=== PATIENT | female | born 1935 | race Caucasian/White ===

== ENCOUNTER 2020-04-04 09:43 | Outpatient (CLI) | payer MEDICARE, SELFPAY ==
--- NOTE | ~2020-04-04 | MM_ITS ---
EXAMINATION: MM screening maynor BI w eduard HISTORY: Screening mammogram TECHNIQUE: Craniocaudal and mediolateral oblique 3-D tomosynthesis images were obtained and synthetic 2-D images were generated. CAD analysis was submitted and interpreted. COMPARISON: Comparison to multiple prior studies sequentially, with oldest reviewed study dated 02/19. BREAST PARENCHYMAL COMPOSITION: There are scattered areas of fibroglandular density. FINDINGS: There is no evidence of suspicious mass, calcification, or architectural distortion to sugg est malignancy in either breast. There has been no suspicious interval change. IMPRESSION: 1. No mammographic evidence of malignancy. 2. Recommend routine screening mammography in one year. BI-RADS Category 1: Negative Reviewed, dictated and finalized at location A.
== END 2020-04-04 09:44 | disposition home or self-care (01) ==
LOC: ANHIMG 09:46
PROVIDERS: PCP Family Medicine; Visit Provider Family Medicine
DX: Z12.31 Encounter for screening mammogram for malignant neoplasm of breast (principal)
CPT/HCPCS: 77063; 77067

== ENCOUNTER → 2021-02-16 01:27 | Outpatient (CLI) | payer MEDICARE, SELFPAY ==
[2021-02-16 19:12] LABS: SARS-CoV-2 RNA PCR Negative
== END ==
PROVIDERS: PCP Family Medicine; Visit Provider Internal Medicine Cardiovascular Disease
DX: Z01.812 Encounter for preprocedural laboratory examination (principal); Z20.822 Contact with and (suspected) exposure to COVID-19
CPT/HCPCS: C9803; U0003; U0005

== ENCOUNTER 2021-02-20 03:15 | Day surgery (SDC) | payer MEDICARE, SELFPAY ==
[2021-02-19 10:26] VITALS: BMI 23.9
[2021-02-20] VITALS (12 sets, daily range): BP systolic 89–134; BP diastolic 54–82; PULSE 64–79; RESP 8–23; TEMP 36.5–37.1; O2SAT 98–100; BMI 24.2
--- NOTE | 2021-02-20 13:00 | ECG_ITS ---
Measurements Intervals [place] Rate: 75 P: [place]: 0 QRS: -15 QRSD: 86 T: 29 QT: 392 QTc: 439 Interpretive Statements ATRIAL FIBRILLATION ABNORMAL ECG Electronically Signed On 02-20-2021 13:40:24 CDT by Michael Pham D.O.
--- NOTE | 2021-02-20 13:48 | ECG_ITS ---
Measurements Intervals [place] Rate: 69 P: 93 IA: 259 QRS: -16 QRSD: 94 T: 43 QT: 418 QTc: 450 Interpretive Statements SINUS RHYTHM WITH FIRST DEGREE AV BLOCK ATRIAL AND VENTRICULAR PREMATURE COMPLEXES BASELINE ARTIFACT- I, II, III, AVR, AVL, AVF ABNORMAL ECG Electronically Signed On 02-20-2021 15:32:25 CDT by Michael Pham D.O.
[2021-02-20 13:51] LABS: Anion Gap 5 mmol/L (8-16); Blood Urea Nitrogen 20 mg/dL (7-17); Calcium 9.2 mg/dL (8.4-10.2); Carbon Dioxide 28 mmol/L (22-30); Chloride 104 mmol/L (98-107); Estimated CRCL calculation 25 ml/min; Estimated Glomerular Filt Rate 43; Glucose 98 mg/dL (65-105); Magnesium 1.6 mg/dL (1.6-2.3); Potassium 4.4 mmol/L (3.4-5.0); Sodium 137 mmol/L (137-145)
[2021-02-20] MEDS: MAGNESIUM SULF 2 GM/WATER 50ML 2 GM/50 ML BAG IVPB (14:28)
--- NOTE | 2021-02-20 15:03 | WPDHPUPDATE1 ---
History and Physical Update Update Date/Time: 02/20/21 15:03 History and Physical has been reviewed, including an updated exam of the patient. There are NO changes in the patient's condition. Risks, benefits, and alternatives have been discussed and questions answered. Patient confirms that she has not missed any Eliquis doses. Patient agrees to proceed with procedure.
--- NOTE | 2021-02-20 15:04 | WPDMODSED ---
Moderate Sedation Note-Pt Data Patient Data Diagnosis: Symptomatic atrial fibrillation Present Complaint: Symptomatic atrial fibrillation Procedure to be performed/Plan: Conscious sedation elective electrical cardioversion Allergies Allergy/AdvReac Type Severity Reaction Status Date / Time No Known Allergies Allergy Verified 02/20/21 13:40 Home Medications Medication Instructions Recorded Confirmed Type irbesartan 300 mg tablet 300 mg PO DAILY #90 tablet 04/05/20 02/19/21 Rx propranolol 80 mg tablet 80 mg PO Q12H #180 tablet 05/07/20 02/19/21 Rx diltiazem HCl 120 mg capsule,24 120 mg PO DAILY #90 cap 07/02/20 02/19/21 Rx hr,extended release omeprazole 40 mg capsule,delayed 40 mg PO DAILY #90 cap 09/26/20 02/19/21 Rx release pravastatin 20 mg tablet 20 mg PO DAILY #90 tablet 12/24/20 02/19/21 Rx apixaban 5 mg tablet 5 mg PO BID #60 tablet 01/29/21 02/19/21 Rx furosemide 20 mg PO DAILY 02/19/21 02/19/21 History Current Medications: Active Medications Sodium Chloride (Normal Saline Iv) 1,000 mls @ 30 mls/hr IV CONT .Q24H DIANE Magnesium Sulfate (Magnesium Sulf 2 Gm/Water 50ml) 2 gm in 50 mls @ 50 mls/hr IVPB ONCE ONE Stop: 02/20/21 15:16 Last Admin: 02/20/21 14:28 Dose: 50 mls/hr Documented by: Sedation/Anesthesia: No previous sedation/anesthesia problems (including family history). [facility] Past Medical History Medical History (Updated 02/20/21 @ 15:05 by Alison Woo MD) CKD (chronic kidney disease), stage III Hyperlipidemia Hypertensive CKD (chronic kidney disease) OAB (overactive bladder) Raynauds disease Family History Family History Mother Family history of coronary artery disease Social History Social History (Updated 02/20/21 @ 15:06 by Alison Woo MD) Social History: , lives alone in [place], 2 sons and 1 daughter. Smoking status: Never smoker Second hand tobacco smoke exposure: No Alcohol intake: never Substance use: never Substance use type: does not use Living arrangements: alone Gender identity (if verbalized by the patient): Female Spiritual care concerns: No Mod Sed Physical Exam Physical Exam Pre Procedural Exam: Normal: Appearance, Eyes, Ears, Nose, Neck, Throat, Airway, Lungs, Heart Size, Heart Rate, Neuro Exam, Abdomen, Extremities and Skin and Variation: Heart Rhythm (Irregular) Hours since solid foods: 12 Hours since liquid intake: 12 Internal Medicine - PN: Obj Da Vital Signs Vital Signs: Vital Signs - 24 hr 02/20/21 13:30 Temperature 98.5 F Pulse Rate 79 Respiratory Rate 23 H Blood Pressure 121/78 Pulse Oximetry 100 Meds/Results Medications: Active Medications Generic Name Dose Route Start Last Admin Trade Name Freq PRN Reason Stop Dose Admin Sodium Chloride 1,000 mls @ 30 mls/hr 02/20/21 13:00 Normal Saline Iv IV CONT .Q24H DIANE Magnesium Sulfate 2 gm in 50 mls @ 50 mls/hr 02/20/21 14:17 02/20/21 14:28 Magnesium Sulf 2 Gm/Water 50ml IVPB 02/20/21 15:16 50 mls/hr ONCE ONE Administration Labs CBC & Chem 7: 02/20/21 13:30 Labs: Laboratory Results - last 24 hr 02/20/21 13:30 Sodium 137 Potassium 4.4 Chloride 104 Carbon Dioxide 28 Anion Gap 5 L BUN 20 H Creatinine 1.20 H Estim Creat Clear Calc 25 Estimated GFR 43 L Glucose 98 Calcium 9.2 Magnesium 1.6 ASA Classification/Sedation ASA Classification/Sedation ASA Class: III Risks: Risks, benefits and alternatives explained and patient/family accepted plan for sedation. Patient re-evaluated immediately prior to sedation.
--- NOTE | 2021-02-20 15:28 | PM.OP ---
Procedure Note - Brief Procedure Note - Brief Date of procedure: 02/20/21 Pre-op diagnosis: Afib Post-op diagnosis: same Procedure performed: Conscious sedation and elective electrical cardioversion Description of procedure: Successful cardioversion to normal sinus rhythm Anesthesia: other (Conscious sedation) Surgeon: Alison Woo MD Condition: stable Disposition: observation Findings: Uneventful cardioversion
--- NOTE | 2021-02-20 15:38 | WPDCARDVER ---
Cardioversion Cardioversion Date of procedure: 02/20/21 Description of procedure: History: Symptomatic atrial fibrillation Procedure: Conscious sedation and elective electrical cardioversion. Conscious sedation: Assessment: The patient has no history of anesthesia problems. The patient's oropharynx is clear. The patient was deemed to be a good candidate for conscious sedation. The patient had continuous hemodynamic monitoring during the procedure. Start time: 16 Completion time: 1533 Total conscious sedation time: 17 minutes Medications: Versed 2 mg, fentanyl 50 mcg IV push Trained observer: Sherly Ernandez RN Outcome: The patient tolerated the procedure well with no complications. Cardioversion: After informed consent and the above conscious sedation, the patient underwent elective electrical synchronized cardioversion with 150 joules of biphasic energy and converted to normal sinus rhythm. There were no complications. Followup: The patient will follow up in my office in 1 week for an EKG and is scheduled to see me in the office in February. No medication changes made.
--- NOTE | 2021-02-20 17:00 | SUR.PHASEII ---
REVIEWED DISCHARGE INSTRUCTIONS AND FOLLOW UP CARE W/ PT AND DAUGHTER IN LAW. QUESTIONS ANSWERED. BOTH VOICED UNDERSTANDING. MONITOR SR. DISCHARGED HOME, OUT VIA WC TO FAMILY WAITING CAR WITH ALL PERSONAL BELONGINGS AND DISCHARGE PACKET. NO DISTRESS NOTED. VOICES NO C/O.
== END 2021-02-20 17:00 | disposition home or self-care (01) ==
PROVIDERS: PCP Family Medicine; Visit Provider Internal Medicine Cardiovascular Disease
PROC: 5A2204Z Restoration of Cardiac Rhythm, Single (ICD-10-PCS; principal; 2021-02-20 14:30)
DX: I48.91 Unspecified atrial fibrillation (principal); I12.9 Hypertensive chronic kidney disease with stage 1 through stage 4 chronic kidney disease, or unspecified chronic kidney disease; N18.30 Chronic kidney disease, stage 3 unspecified; E78.2 Mixed hyperlipidemia; I73.00 Raynaud's syndrome without gangrene; N32.81 Overactive bladder; Z79.01 Long term (current) use of anticoagulants
CPT/HCPCS: 36415; 80048; 83735; 92960; 93005; J2250; J3010; J3475; J7040

== ENCOUNTER 2021-04-10 12:47 | Outpatient (CLI) | payer MEDICARE, SELFPAY ==
--- NOTE | ~2021-04-10 | MM_ITS ---
EXAMINATION: MM screening maynor BI w eduard HISTORY: Screening mammogram TECHNIQUE: Craniocaudal and mediolateral oblique 3-D tomosynthesis images were obtained and synthetic 2-D images were generated. CAD analysis was submitted and interpreted. COMPARISON: 04/04/2020, 03/17/2019, 03/15/2018, 03/10/2017 BREAST PARENCHYMAL COMPOSITION: There are scattered areas of fibroglandular density. FINDINGS: Scattered benign-appearing calcifications are present. There is no evidence of suspicious m ass, calcification, or architectural distortion to suggest malignancy in either breast. There has bee n no suspicious interval change. IMPRESSION: 1. No mammographic evidence of malignancy. 2. Recommend routine screening mammography in one year. BI-RADS Category 2: Benign finding(s). Reviewed, dictated and finalized at location A.
== END 2021-04-10 12:48 | disposition home or self-care (01) ==
LOC: ANHIMG 12:49
PROVIDERS: PCP Family Medicine; Visit Provider Family Medicine
DX: Z12.31 Encounter for screening mammogram for malignant neoplasm of breast (principal)
CPT/HCPCS: 77063; 77067

== ENCOUNTER 2021-05-21 15:12 | Outpatient (CLI) | payer MEDICARE, SELFPAY ==
--- NOTE | ~2021-05-21 | CT_ITS ---
EXAMINATION: CTA brain carotid DATE: 05/21/2021 16:01 INDICATION: Paroxysmal atrial fibrillation. TECHNIQUE: Computed tomographic angiography (CTA) of the head was performed without and with 100 mL O mnipaque-350 intravenous contrast. CTA of the neck was performed with intravenous contrast. Automated exposure control and iterative reconstruction technique were employed. The dose-length product was 1 494.68 mGy-cm. Maximum intensity projection and volume rendered 3D-reconstructions were created by irlanda otoole technologist on a separate workstation. COMPARISON: Head CT 03/31/2015 FINDINGS: HEAD CTA: There are scattered areas of low attenuation in the cerebral white matter, which is within normal limits for the patient's age. There is no intracranial hemorrhage, acute infarction, or abnorm al intracranial mass lesion. The ventricles are normal in size. There are likely changes of ocular le ns replacement surgeries. There is mild mucosal thickening in the ethmoid sinuses. There is a trace r ight mastoid effusion. The vertebral arteries are codominant. There is no significant stenosis of bas ilar artery or the posterior cerebral arteries. The posterior communicating arteries are normal. Ther e is no significant stenosis of the intracranial internal carotid arteries or anterior or middle cere bral arteries. Anterior communicating artery is normal. There is no aneurysm. NECK CTA: There is mild scarring at the lung apices. There are no pathologically enlarged lymph nodes . There is no significant stenosis of the vertebral arteries. There is plaque in the proximal interna l carotid arteries. There is motion artifact at the level of the proximal internal carotid regions wh ich decreases specificity. There is 0% stenosis of the proximal right internal carotid artery relativ e to normal distal artery lumen diameter (NASCET criteria). There is 30% stenosis of the proximal lef t internal carotid artery relative to normal distal artery lumen diameter. There is severe cervical s pondylosis. IMPRESSION: 1. Normal aging brain. 2. No aneurysm or significant intracranial arterial stenosis. 3. 0% stenosis of the proximal right internal carotid artery relative to normal distal artery lumen d iameter (NASCET criteria). 4. 30% stenosis of the proximal left internal carotid artery relative to normal distal artery lumen d iameter. Reviewed, dictated and finalized at location A. IMPRESSION: 1. Normal aging brain. 2. No aneurysm or significant intracranial arterial stenosis. 3. 0% stenosis of the proximal right internal carotid artery relative to normal distal artery lumen diameter (NASCET criteria). 4. 30% stenosis of the proximal left internal carotid artery relative to normal distal artery lumen diameter.
[2021-05-21 15:39] LABS: Estimated Glomerular Filt Rate 39
== END 2021-05-21 15:13 | disposition home or self-care (01) ==
PROVIDERS: PCP Family Medicine; Visit Provider Internal Medicine Cardiovascular Disease
DX: I48.0 Paroxysmal atrial fibrillation (principal); H53.9 Unspecified visual disturbance; R51.9 Headache, unspecified; I65.22 Occlusion and stenosis of left carotid artery
CPT/HCPCS: 70496; 70498; Q9967

== ENCOUNTER 2021-06-06 15:48 | Outpatient (CLI) | payer MEDICARE, SELFPAY ==
--- NOTE | ~2021-06-06 | MR_ITS ---
EXAMINATION: MR brain/brain stem wo con DATE: 06/06/2021 16:35 INDICATION: Transient ischemic attack. TECHNIQUE: Magnetic resonance imaging (MRI) of the brain and brainstem was performed without intraven ous contrast. Sequences included sagittal and axial T1-weighted FSE, axial diffusion-weighted FS EPI, axial T2*-weighted GRE, axial T2-weighted FLAIR Propeller, and axial T2-weighted Propeller. Apparent diffusion coefficient (ADC) maps were created. COMPARISON: Head CT 05/21/2021 FINDINGS: There are scattered areas of nonspecific increased T2-weighted signal intensity in the cere bral white matter, which is within normal limits for the patient's age. There is no intracranial hemo rrhage, acute infarction, or abnormal intracranial mass lesion. The ventricles are normal in size. Th e paranasal sinuses are clear. There are likely changes of ocular lens replacement surgeries. The mas toid air cells are normal. IMPRESSION: 1. Normal aging brain. Reviewed, dictated and finalized at location A. IMPRESSION: 1. Normal aging brain.
== END 2021-06-06 15:49 | disposition home or self-care (01) ==
PROVIDERS: PCP Family Medicine; Visit Provider Internal Medicine Cardiovascular Disease
DX: I48.0 Paroxysmal atrial fibrillation (principal); G45.9 Transient cerebral ischemic attack, unspecified
CPT/HCPCS: 70551

== ENCOUNTER → 2023-06-11 15:10 | Outpatient (CLI) | payer MEDICARE, SELFPAY ==
--- NOTE | ~2023-06-11 | XR_ITS ---
EXAMINATION: XR lumbar spine 2-3V DATE: 06/11/2023 15:23 INDICATION: Low back pain. Low back injury. TECHNIQUE: 3 views of lumbar spine were obtained. COMPARISON: Lumbar spine radiographs 10/11/2013 FINDINGS: There is 27 degrees dextroscoliosis of lumbar spine. Vertebral body heights are normal. The re is mildly decreased disc height at T12-L1 and L1-L2, severely decreased disc height at L2-L3 and L 3-L4, and mildly decreased disc height at L4-L5. There is multilevel facet joint osteoarthritis, santiago re at multiple levels. IMPRESSION: 1. Severe lumbar spondylosis, worsened from 10/11/2013. 2. Lumbar dextroscoliosis. Reviewed, dictated and finalized at location E.
== END ==
PROVIDERS: PCP Family Medicine; Visit Provider Family Medicine
DX: M47.896 Other spondylosis, lumbar region (principal)
CPT/HCPCS: 72100

== ENCOUNTER 2023-09-24 03:10 | Day surgery (SDC) | payer MEDICARE, SELFPAY ==
--- NOTE | 2023-09-24 08:30 | ECG_ITS ---
Measurements Intervals [place] Rate: 72 P: [place]: 0 QRS: -22 QRSD: 85 T: 28 QT: 390 QTc: 429 Interpretive Statements ATRIAL FIBRILLATION BORDERLINE LEFT AXIS DEVIATION [QRS AXIS < -20] ABNORMAL RHYTHM ECG COMPARED TO ECG 02/20/2021 15:30:29 ATRIAL FIBRILLATION NOW PRESENT Electronically Signed On 09-24-2023 12:58:12 CDT by Alison Woo M.D.
[2023-09-24 08:52] VITALS: BP 170/98; PULSE 80; RESP 17; TEMP 36.6; O2SAT 96; BMI 24.2
[2023-09-24 09:05] LABS: Basophils Percent Auto 0.7 % (0.2-1.2); Eosinophils Absolute Auto 0.1 K/mm3 (0-0.3); Eosinophils Percent Auto 1.5 % (0-4.4); Hematocrit 37.8 % (37.0-47.0); Hemoglobin 12.3 g/dL (12.0-15.0); Immature Granulocyte Absolute 0.01 K/mm3 (0.00-0.031); Immature Granulocyte Percent A 0.2 % (0-0.5); Lymphocytes Absolute Auto 2.36 K/mm3 (0.9-3.2); Lymphocytes Percent Auto 43.6 % (18.3-44.2); Mean Corpuscular HGB Conc 32.5 g/dl (32-36); Mean Corpuscular Hemoglobin 34.1 pg (26-34); Mean Corpuscular Volume 104.7 fl (80-100); Monocytes Absolute Auto 0.8 K/mm3 (0.1-0.6); Monocytes Percent Auto 14.4 % (2.6-8.5); Neutrophils Absolute Auto 2.1 K/mm3 (1.3-6.7); Neutrophils Percent Auto 39.6 % (45.5-73.1); Platelet Count Result 180 k/mm3 (150-375); Red Blood Count 3.61 M/mm3 (4.2-5.4); Red Cell Distribution Width 13.7 % (11.5-14.5); White Blood Count 5.4 K/mm3 (4.5-10.0)
[2023-09-24 09:17] LABS: Anion Gap 4 mmol/L (8-16); Blood Urea Nitrogen 19 mg/dL (7-17); Calcium 9.3 mg/dL (8.4-10.2); Carbon Dioxide 31 mmol/L (22-30); Chloride 102 mmol/L (98-107); Estimated CRCL calculation 24 ml/min; Estimated Glomerular Filt Rate 43; Glucose 99 mg/dL (65-110); Potassium 4.3 mmol/L (3.4-5.0); Sodium 137 mmol/L (137-145)
[2023-09-24 09:17] LABS: Magnesium 1.5 mg/dL (1.6-2.3)
[2023-09-24 09:28] LABS: NT Pro B Type Natriuretic Pept 2950 pg/mL (19.9-100)
--- NOTE | 2023-09-24 09:42 | WPDHPUPDATE1 ---
History and Physical Update Update Date/Time: 09/24/23 09:42 Patient with history of AFib ablation in April [address] Velazquez at [facility]. She has had progressive JOHNSON over the past few months and was found to be in atrial fibrillation again the time of the recent office visit September 15, 2023. She is here for cardioversion. History and Physical has been reviewed, including an updated exam of the patient. There are NO changes in the patient's condition. Risks, benefits, and alternatives have been discussed and questions answered. Patient agrees to proceed with procedure.
--- NOTE | 2023-09-24 09:43 | WPDMODSED ---
Moderate Sedation Note-Pt Data Patient Data Diagnosis: Recurrent atrial fibrillation Mild congestive heart failure Present Complaint: history of AFib ablation in April [address] Velazquez at [facility]. She has had progressive JOHNSON over the past few months and was found to be in atrial fibrillation again the time of the recent office visit September 15, 2023. Her rate is controlled. She had a cardioversion in 2020 and felt significantly better. I suspected she may mild CHF her proBNP was 2000. She has not missed any doses of Eliquis. She is here for cardioversion. Procedure to be performed/Plan: Conscious sedation Elective electrical cardioversion Allergies Allergy/AdvReac Type Severity Reaction Status Date / Time No Known Allergies Allergy Verified 09/24/23 08:36 Home Medications Medication Instructions Recorded Confirmed Type triamcinolone acetonide 0.5 % 1 applic topical BID #15 grams 06/06/22 09/24/23 Rx topical ointment pravastatin 20 mg tablet 20 mg PO DAILY #90 tabs 05/12/23 09/23/23 Rx diltiazem HCl 120 mg capsule,24 120 mg PO DAILY #90 caps 06/12/23 09/23/23 Rx hr,extended release tramadol 50 mg tablet 50 mg PO Q8H PRN pain #30 tabs 06/22/23 09/24/23 Rx apixaban 5 mg tablet 5 mg PO BID #60 tabs 07/21/23 09/23/23 Rx omeprazole 40 mg capsule,delayed 40 mg PO DAILY #90 caps 08/28/23 09/23/23 Rx release calcium carbonate 600 mg calcium 600 mg PO BID 09/23/23 09/23/23 History (1,500 mg) tablet irbesartan 150 mg tablet 300 mg PO DAILY 09/23/23 09/23/23 History propranolol 80 mg tablet 80 mg PO BID 09/24/23 09/24/23 History Current Medications: Active Medications Sodium Chloride (Normal Saline Iv) 1,000 mls @ 30 mls/hr IV CONT .Q24H DIANE Sedation/Anesthesia: No previous sedation/anesthesia problems (including family history). [facility] Past Medical History Medical History (Updated 09/24/23 @ 09:46 by Alison Woo MD) CKD (chronic kidney disease), stage III Diastolic CHF Hyperlipidemia Hypertensive CKD (chronic kidney disease) OAB (overactive bladder) Paroxysmal A-fib Status post AFib ablation by Dr. Velazquez at [place] in February 2022. Raynauds disease Family History Family History Mother Family history of coronary artery disease Social History Social History Social History: , lives alone in [place], 2 sons and 1 daughter. Smoking status: Never smoker Second hand tobacco smoke exposure: No Alcohol intake: never Substance use: never Substance use type: does not use Lack of Transportation: No Lack of Food: Never True Current Housing: I Have Housing Concerned About Future Housing: No Difficulty Paying Gas/Electric Bills: No Difficulty Paying for Meds: No Currently Unemployed: YES Education: Decline to Answer Difficulty w/ Childcare or Family Care: No Living arrangements: alone Occupation/Education: retired Gender identity (if verbalized by the patient): Female Sexual Orientation (if Verbalized by the Patient): Straight or Heterosexual Spiritual care concerns: No Mod Sed Physical Exam Physical Exam Pre Procedural Exam: Normal: Appearance (Very pleasant well-groomed 80 Compazine by daughter and son), Eyes, Ears, Nose, Neck, Throat, Airway (Dentures), Lungs, Heart Size, Heart Rate, Neuro Exam, Abdomen, Extremities and Skin and Variation: Heart Rhythm (Irregular) Hours since solid foods: 12 Hours since liquid intake: 12 Mallampati Classification: class II Internal Medicine - PN: Obj Da Vital Signs Vital Signs: Vital Signs - 24 hr 09/24/23 08:52 Temperature 97.9 F Pulse Rate 80 Respiratory Rate 17 Blood Pressure 170/98 H Pulse Oximetry 96 Oxygen Delivery Room Air Meds/Results Medications: Active Medications Generic Name Dose Route Start Last Admin Trade Name Freq PRN Reason Stop Dose Admin Sod[place]
[2023-09-24 09:55] VITALS: BP 143/80; PULSE 85; RESP 14; O2SAT 100
[2023-09-24 10:00] VITALS: BP 135/68; PULSE 59; RESP 12; O2SAT 98
--- NOTE | 2023-09-24 10:05 | P.OP_ITS ---
Procedure Note - Detailed Date of Procedure 09/24/23 Pre-op Diagnosis A-fib Post-op Diagnosis Other (Successful cardioversion) Procedure Performed Conscious sedation: Assessment: The patient has no history of anesthesia problems. The patient's oropharynx is clear. The patient was deemed to be a good candidate for conscious sedation. The patient had continuous hemodynamic monitoring during the procedure. Start time: 9:52 a.m. Completion time: 10:01 a.m. Total conscious sedation time: 9 minutes Medications: Versed 2 mg, fentanyl 75 mcg push Trained observer: Kristi Mohamud R.N. Outcome: The patient tolerated the procedure well with no complications. Surgeon Alison Woo MD Anesthesia Other (Conscious sedation) Indications 88-year-old female with a history of paroxysmal atrial fibrillation who underwent cardioversion 2020, and felt much better. She underwent AFib ablation by Dr. Velazquez at [facility] in 2021. She has had significant JOHNSON over the last couple of months and was found be back in AFib with a controlled heart rate. She appeared to have some diastolic heart failure, though not particularly volume overload, and her proBNP today was 3000. She has not missed any doses of Eliquis and is here for elective electrical cardioversion. Findings Successful cardioversion Description of Procedure Cardioversion: After informed consent and the above conscious sedation, the patient underwent elective electrical synchronized cardioversion with 150 joules of biphasic energy and converted to normal sinus rhythm. There were no complications. Follow-up: The patient has an appointment to see Dr. Velazquez in September for further discussion of AFib treatment. Also has an appointment to follow-up with Dr. Woo in the next couple of months. Will give 5 days of furosemide 20 mg qd to assist in relief of JOHNSON. Complications No immediate complications Condition Stable Disposition Observation
--- NOTE | 2023-09-24 10:05 | PM.OP ---
Procedure Note - Brief Procedure Note - Brief Date of procedure: 09/24/23 A-fib Procedure performed: Conscious sedation Elective electrical cardioversion Surgeon: Alison Woo MD Description of procedure: Patient cardioverted to sinus rhythm after 150 joules of biphasic energy Complications: No immediate complications Condition: Stable Disposition: Observation
[2023-09-24 10:15] VITALS: BP 109/64; PULSE 57; RESP 11; O2SAT 97
--- NOTE | 2023-09-24 10:15 | ECG_ITS ---
Measurements Intervals [place] Rate: 71 P: 64 CT: 261 QRS: -20 QRSD: 90 T: 16 QT: 408 QTc: 445 Interpretive Statements SINUS RHYTHM/ARRHYTHMIA WITH FIRST DEGREE AV BLOCK WITH OCCASIONAL SUPRAVENTRICULAR PREMATURE COMPLEXES COMPARED TO ECG 09/24/2023 08:50:51 SINUS RHYTHM NOW PRESENT FIRST DEGREE AV BLOCK NOW PRESENT Electronically Signed On 09-24-2023 12:59:02 CDT by Alison Woo M.D.
[2023-09-24 10:30] VITALS: BP 127/64; PULSE 61; RESP 15; O2SAT 98
[2023-09-24 10:45] VITALS: BP 119/60; PULSE 58; RESP 18; O2SAT 95
== END 2023-09-24 11:05 | disposition home or self-care (01) ==
PROVIDERS: PCP Family Medicine; Visit Provider Internal Medicine Cardiovascular Disease
PROC: 5A2204Z Restoration of Cardiac Rhythm, Single (ICD-10-PCS; principal; 2023-09-24 10:00)
DX: I48.0 Paroxysmal atrial fibrillation (principal); R06.09 Other forms of dyspnea; I13.0 Hypertensive heart and chronic kidney disease with heart failure and stage 1 through stage 4 chronic kidney disease, or unspecified chronic kidney disease; I50.30 Unspecified diastolic (congestive) heart failure; N18.30 Chronic kidney disease, stage 3 unspecified; E78.5 Hyperlipidemia, unspecified; I73.00 Raynaud's syndrome without gangrene; N32.81 Overactive bladder; Z79.01 Long term (current) use of anticoagulants
CPT/HCPCS: 36415; 80048; 83735; 83880; 85025; 92960; J2250; J3010; J7030

== ENCOUNTER 2025-06-07 20:40 | Emergency (ER) | payer OTHER, SELFPAY ==
--- NOTE | ~2025-06-07 | CT_ITS ---
Noncontrast CT scan of the lumbar spine CLINICAL HISTORY: Back pain radiating to right lower extremity TECHNIQUE: Axial noncontrast imaging of the lumbar spine was performed. Sagittal and coronal reformat camilo images were constructed. Dose reduction technique was used on this scan by utilizing automated ex posure control and iterative reconstruction technique. The dose-length product (DLP) was 440.06 mGy-c m. FINDINGS: There is dextroscoliosis, apex at L2-L3 disc level. Moderate L1 compression fracture probab ly present, probably chronic. No subluxation evident otherwise. At L1-L2, there is severe degenerative disc narrowing. There is probable minimal disc bulge. There is minimal facet arthropathy. No central canal stenosis. There is severe right neural foraminal narrowi ng, and moderate left neural foraminal narrowing. At L2-L3, there is severe degeneration. There is minimal disc bulge with minimal facet arthropathy. N o central canal stenosis. There is severe left neural foraminal narrowing. Right neural foramen prese rved. At L3-L4, there is severe degenerative disc narrowing. There is minimal disc bulge with minimal facet arthropathy. There is minimal central canal stenosis. There is moderate bilateral neural foraminal n arrowing, left worse than right. At L4-L5, there is diffuse disc bulge with mild facet arthropathy. There is moderate to severe centra l canal stenosis/thecal sac compression. There is moderate to advanced bilateral neural foraminal raya rowing. At L5-S1, there is minimal disc bulge. No spinal canal stenosis or left neural foraminal narrowing. T here is mild right neural foraminal narrowing. Paravertebral soft tissues are unremarkable. Impression: Levoscoliosis with moderate to advanced degenerative spondylitic changes throughout the lumbar spine, as above. Moderate chronic L1 compression fracture. Reviewed, dictated and finalized at location M. Impression: Levoscoliosis with moderate to advanced degenerative spondylitic changes throug hout the lumbar spine, as above. Moderate chronic L1 compression fracture.
--- OUTSIDE RECORDS SUMMARY | 2025-06-07 20:44 | XMS_ITS | Clinical Summary ---
Author Organization [facility] [employer] Address [address] [place] [address] Care Team Providers Care Maker Up Folding Name Role Phone Alonzo Cornejo MD Primary Care Provider [phone] Source Comments [facility] [employer],non-owned Affiliates and Associated Physician Practices is amultiple site organization consisting of ambulatory clinics and hospital sitesin [place], [place], [place] and [place]. This disclosure is being madepursuant to the Care Everywhere program and may not contain all information available regarding this patient. Last updated 18.[facility] [employer] Social History Tobacco Use Types Packs/Day Years Used Date Smoking Tobacco: Never Assessed Comments Unknown Sex and Gender Information Value Date Recorded Sex Assigned at Not on file Legal Sex Female 12:30 PM CDT Gender Identity Not on file Sexual Orientation Not on file Plan of Treatment Health Maintenance Due Date Last Done Comments BONE DENSITY TESTING 1937 DTAP/TDAP/TD VACCINES (1 - Tdap) 1956 PNEUMOCOCCAL VACCINE 50+ (1 of 1 - PCV) 1987 ZOSTER VACCINE (1 of 2) 1987 Respiratory Syncytial Virus (RSV) Vaccine Pt: or over 60 yrs (1 - 1-dose 75+ series) 2012 COVID-19 VACCINE ( - 2023-2 5 season) 2024 DEPRESSION SCREENING 11/30/2024 INFLUENZA VACCINE (#1) 2025 HEPATITIS B VACCINE Aged Out No longe r eligible based on patient's age to complete this topic HIB VACCINE Aged Out No longer eligi ble based on patient's age to complete this topic HPV VACCINE Aged Out No longer eligi ble based on patient's age to complete this topic MENINGOCOCCAL (Group B) VACC INE SHARED DECISION-MAKING Aged Out No longer eligibl e based on patient's age to complete this topic MENINGOCOCCAL GROUPS A/C/Y/W VACCINE Aged Out No longer eligible b ased on patient's age to complete this topic Insurance MEDICARE MEDICARE MEDICARE Care Teams Maker Up Folding Relationship Specialty Start Date End Date Alonzo Cornejo MD [address] [place] [address] PCP - General 06/12/21
--- OUTSIDE RECORDS SUMMARY | 2025-06-07 20:44 | XMS_ITS | Encounter Summary ---
Author Organization [facility] Address [address] [place] [address] Phone Care Team Providers Care Toxicology Teacher Name Role Phone Alonzo Cornejo MD Primary Care Provider Encounter Details Date Type Department Care Team (Late st Contact Info) Description 05/18/2025 Results Follow-Up [facility] Cardiology [facility] Medical Office Building [address] [place] [address] Gilson Velazquez MD [facility] [address] [phone] ECG 12 lead Social History Tobacco Use Types Packs/Day Years Used Date Smoking Tobacco: Never Smokeless Tobacco: Never AUDIT-C Answer Date Recorded Q1: How often do you have a drink containing alcohol? Never 01/04/2024 Q2: How many drinks containi ng alcohol do you have on a typical day when you are drinking? Patient does not drink Q3: How often do you have si x or more drinks on one occasion? Never 01/04/2024 Personal Safety Answer Date Recorded Have you ever been in or are you currently in a harmful physical or emotional relationship or is someone making you feel afraid or unsafe? 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
--- OUTSIDE RECORDS SUMMARY | 2025-06-07 20:44 | XMS_ITS | Clinical Summary ---
Author Organization [facility] [address] Address [address] [place] [address] Care Team Providers Care Educational Psychology Teacher Name Role Phone Alonzo Cornejo MD Primary Care Provider Allergies No known active allergies Medications propranoloL (INDERAL) 80 mg tablet Take 1 tablet (80 mg total) by mouth every 12 (twelve) hours 1 Active omeprazole (PriLOSEC) 40 mg capsuleIndication s:Stress Ulcer Prophylaxis Take 1 capsule (40 mg total) by mouth fisheries enforcement officer before breakfast 1 Active Tiadylt ER 120 mg 24 hr capsule Take 1 capsule (120 mg total) by mouth fisheries enforcement officer before breakfast 1 Active acetaminophen (TYLENOL) 500 mg tablet Take 1 tablet (500 mg total) by mouth every 6 (six) hours as needed for pain Active irbesartan (AVAPRO) 150 mg tablet Take 1 tablet (150 mg total) by mouth daily 4 Active apixaban (ELIQUIS) 2.5 mg tabletIndications :atrial fibrillation Take 1 tablet (2.5 mg total) by mouth 2 (two) times a day 180 tablet 3 4 Active atorvastatin (LIPITOR) 20 mg tablet TAKE 1 TABLET BY MOUTH EVERY DAY 90 tablet 1 5 Active Active Problems Problem Noted Date Diagnosed Date Atypical atrial flutter 05/18/2025 senior living current use of anticoagulant therapy 0 05/18/2025 Chronic fatigue 12/29/2023 Reactive depression 12/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 Now s/p repeat ablation 01/04/24 -Discussed dose of eliquis with EP as pt reports taking 5 mg BID. Per EP fellow, resume home dose -Cont propranolol and diltiazem -Telemetry shows NSR -Home today. F/U with EP as arranged. Discussed post procedure instructions. Pt verbalized understanding. S/P radiofrequency ablation operation for arrhyt hmia 12/16/2022 Other thrombophilia 12/16/2022 Dyslipidemia 05/17/2022 Assessment & Plan (01/04/2024 2:57 PM BAIT DIGGER): Cont statin Assessment & Plan (05/17/2022 8:58 AM CDT): -continue statin GERD (gastroesophageal reflux disease) Assessment & Plan (05/17/2022 8:58 AM CDT): -cont PPI (HFpEF) heart failure with preserved ejection fr action 03/28/2021 Assessment & Plan (01/05/2024 2:27 PM BAIT DIGGER): TTE with EF 64% and grade 1 diastolic dysfunction. Appears euvolemic. Not in exacerbation -Not on diuretics at home -Strict I&Os, daily weights Loneliness 03/28/2021 Valvular heart disease 02/13/2021 Paroxysmal atrial fibrillation 01/29/2021 Chronic anticoagulation 01/29/2021 Essential hypertension 01/29/2021 Assessment & Plan (01/04/2024 2:55 PM BAIT DIGGER): Cont irbesartan and propranolol Localized swelling of both lower legs 01/29/2021 JOHNSON (dyspnea on exertion) 01/29/2021 Elevated LFTs 01/29/2021 Elevated TSH 01/29/2021 Anemia, unspecified 01/29/2021 Assessment & Plan (01/05/2024 2:27 PM BAIT DIGGER): Baseline Hgb 11s, likely AOCD; no signs of bleeding -Small drop in post procedure Hgb, exam reassuring. No hematoma Excessive daytime sleepiness 01/29/2021 CKD (chronic kidney disease) 01/29/2021 Assessment & Plan (01/05/2024 2:30 PM BAIT DIGGER): Cr baseline 1-1.1. Stable Resolved Problems Problem Noted Date Diagnosed Date Resolved Date Atrial fibrillation 05/16/2022 09/15/20 Persistent atrial fibrillation 04/08/2022 06/11/2022 Assessment & Plan (05/17/2022 8:58 AM CDT): -s/p afib ablation yesterday -patient currently in NSR / sinus arrhythmia -cont Eliquis, dilt, propranolol -f/u EP Encounters Date Type Department Care Team Description 05/22/2025 11:00 AM CDT Office Visit [facility] Cardiology [address] [facility] [address] [place] [address] Natanael Concepcion MD Paroxysmal atrial fibrillation (HCC) (Primary Dx); Valvular heart disease 05/18/2025 11:30 AM CDT Office Visit [facility] Cardiology [address] [facility] Advanced Medicine 8th [place] [address] [place] [address] Gilson Velazquez MD S/P radiofrequency ablation operation for arrhythmia (Primary Dx); Paroxysmal atrial fibrillation (HCC); Atypical atrial flutter (HCC); long term current use of anticoagulant therapy 05/18/2025 Results Follow-Up [facility] Cardiology [address] [facility] Medical Office Building [address] [place] [address] Gilson Velazquez MD ECG 12 lead from Last 3 Months Immunizations Immunization Administration Dates Next Due Moderna SARS-CoV-2 Monovalent Vaccination (12+ Y RS) 01/01/2021 Surgical History Surgery Date Site/Laterality Comments ABLATION 2021 atrial fibrillation CARDIOVERSION 2022 Medical History Medical History Date Comments Hypertension Heart valve disease Hyperlipidemia CKD (chronic kidney disease) stage 3, GFR 30-59 ml/min ([facility]) Eye problem Blood vessel bur st in [place] Family History Medical History Relation Name Comments Heart disease Mother Heart failure Mother Throat cancer Son Anesthesia problems Neg Hx Malig Hypertension Neg Hx Malig Hyperthermia Neg Hx Pseudochol deficiency Neg Hx Relation Name Status Comments Father Mother (Age 73) Son Social History Tobacco Use Types Packs/Day Years Used Date Smoking Tobacco: Never Smokeless Tobacco: Never Tobacco Cessation:Counseling Given: Not Answered AUDIT-C Answer Date Recorded Q1: How often [...] on file Legal Sex Female 2:54 AM BAIT DIGGER Gender Identity Not on file Sexual Orientation Not on file Obstetrics History Last Filed Vital Signs Vital Sign Reading Time Taken Comments Blood Pressure 140/74 05/22/2025 10:54 AM CDT Pulse 71 05/22/2025 10:54 AM CDT Temperature 36.7 C (98.1 F) 01/05/2024 8:53 AM BAIT DIGGER Respiratory Rate 16 01/05/2024 8:53 AM BAIT DIGGER Oxygen Saturation 98% 05/22/2025 10:54 AM CDT Inhaled Oxygen Concentration - - Weight 59 kg (130 lb) 05/22/2025 10:54 AM CDT Height 157.5 cm (5' 2) 05/22/2025 10:54 AM CDT Body Mass Index 23.78 05/22/2025 10:54 AM CDT Plan of Treatment Health Maintenance Due Date Last Done Comments Depression Screening 1935 Osteoporosis Screening-Bone Density Scan 1935 DTaP/Tdap/Td Vaccine (1 - Tdap) 1948 Hepatitis B Screening 1955 Pneumococcal vaccine 65+ (1 of 1 - PCV) 1987 Zoster Vaccine (1 of 2) 1987 Well Visit 65+ 2002 Covid-19 Vaccine (4 - 2023-2 5 season) 2024 10/03/2021, 02/01/2021, 01/01/2021 Fall Risk Assessment 01/05/2025 01/05/2024 Influenza Vaccine (Season Ended) 2025 08/21/2021, 07/29/2020, 07/25/2019, Additional history exists Medical Devices Implanted Type Area Automatic Steel Tie Adjuster Device Identifier Shelf Expiration Date Model / Serial / Lot Vascade Mvp 6-12fr Venous Closure [id number] - [id number] Implanted:Qty : 1 on 05/16/2022 by Gilson Velazquez MD at [facility] Collagen Left: Groin [employer] 11/29/2025 800-612C- 10U / / [id number] Vascade Mvp 6-12fr Venous Closure [id number] - [id number] Implanted:Qty : 1 on 05/16/2022 by Gilson Velazquez MD at [facility] Collagen Right: Groin [employer] 11/29/2025 800-612C- 10U / / [id number] Vascade Mvp 6-12fr Venous Closure [id number] - [id number] Implanted:Qty : 1 on 05/16/2022 by Gilson Velazquez MD at [facility] Collagen Right: Groin [employer] 11/29/2025 800-612C- 10U / / [id number] [employer] Vascade Mvp 6-12fr Venous Closure [id number] - [id number] Implanted:Qty : 1 on 01/04/2024 by Gilson Velazquez MD at [facility] Other - see comments [employer] 09/21/2025 800-612C- 10U / / [id number] 30C Description:Vascade closure device [employer] Vascade Mvp 6-12fr Venous Closure [id number] - [id number] Implanted:Qty : 1 on 01/04/2024 by Gilson Velazquez MD at [facility] Other - see comments [employer] 08/18/2025 800-612C- 10U / / [id number] 18C Description:Vascade closure device [employer] Vascade Mvp 6-12fr Venous Closure [id number] - [id number] Implanted:Qty : 1 on 01/04/2024 by Gilson Velazquez MD at [facility] Other - see comments [employer] 09/21/2025 800-612C- 10U / / [id number] 30C Description:Vascade closure device Procedures Procedure Name Priority Date/Time Associated Diagnosis Comments ECG 12-LEAD Routine 05/18/2025 11:39 AM CDT Paroxysmal atrial fibrillation (HCC) from Last 3 Months Results * ECG 12 lead (05/18/2025 11:39 AM CDT) us Gilson Velazquez MD ECG ORDERABLES Edited Result - Final from Last 3 Months Insurance [facility] [employer] ADVANTAGE CHOICE PPO Member Subscriber Plan / Payer (Ef fective 2023-Present) Name:Luly Luis Relation to Subscriber:Self Name:Luly Luis Payer ID:[id number] (NAIC) Type:MEDICARE RISK OTHER [facility] [address] [facility] [address] [employer] ADVANTAGE CHOICE PPO Advance Directives For more information, please contact: [phone] * Full Code (Latest Code Status on File) Date Activated Date Inactivated Comments 01/04/2024 2:52 PM 01/05/2024 3:30 PM Care Teams Educational Psychology Teacher Relationship Specialty Start Date End Date Alonzo Cornejo MD [address] [facility] [address] [place] [address] PCP - General 05/23/13
--- OUTSIDE RECORDS SUMMARY | 2025-06-07 20:44 | XMS_ITS | Referral Summary ---
Author Organization [facility] [address] [facility] [address] Address [address] [place] [address] Care Team Providers Care Cutter And Presser Name Role Phone Alonzo Cornejo MD Primary Care Provider Encounters Date Type Department Care Team Description 05/22/2025 11:00 AM CDT Office Visit [facility] Cardiology [address] [place] [address] Natanael Concepcion MD Paroxysmal atrial fibrillation (HCC) (Primary Dx); Valvular heart disease 05/18/2025 Results Follow[facility]Up [facility] Cardiology [address] [facility] Medical Office Building [address] [place] [address] Gilson Velazquez MD ECG 12 lead 05/18/2025 11:30 AM CDT Office Visit [facility] Advanced Medicine 8th [place] [address] [place] [address] Gilson Velazquez MD S/P radiofrequency ablation operation for arrhythmia (Primary Dx); Paroxysmal atrial fibrillation (HCC); Atypical atrial flutter (HCC); detention current use of anticoagulant therapy from Last 3 Months Allergies No known active allergies Medications propranoloL (INDERAL) 80 mg tablet Take 1 tablet (80 mg total) by mouth every 12 (twelve) hours Active omeprazole (PriLOSEC) 40 mg capsuleIndication s:Stress Ulcer Prophylaxis Take 1 capsule (40 mg total) by mouth clerical adviser before breakfast 1 Active Tiadylt ER 120 mg 24 hr capsule Take 1 capsule (120 mg total) by mouth clerical adviser before breakfast 1 Active acetaminophen (TYLENOL) 500 [...] Date Diagnosed Date Atypical atrial flutter 05/18/2025 detention current use of anticoagulant therapy 0 05/18/2025 Chronic fatigue 12/29/2023 Reactive depression 12/29/2023 CKD (chronic kidney disease) , symptom management only, stage 3 (moderate) 12/29/2023 Atrial fibrillation 12/08/2023 Assessment & Plan (01/05/2024 2:29 PM DIRECTOR EMERGENCY SERVICES): Hx prior DCCV x2 and ablation (04/2022). [...] 05/17/2022 Assessment & Plan (01/04/2024 2:57 PM DIRECTOR EMERGENCY SERVICES): Cont statin Assessment & Plan (05/17/2022 8:58 AM CDT): -continue statin GERD (gastroesophageal reflux disease) 2 Assessment & Plan (05/17/2022 8:58 AM CDT): -cont PPI (HFpEF) heart failure with preserved ejection fr action 03/28/2021 Assessment & Plan (01/05/2024 2:27 PM DIRECTOR EMERGENCY SERVICES): TTE with EF 64% and grade 1 diastolic dysfunction. Appears euvolemic. Not in exacerbation -Not on diuretics at home -Strict I&Os, daily weights Loneliness 03/28/2021 Valvular heart disease 02/13/2021 Paroxysmal atrial fibrillation 01/29/2021 Chronic anticoagulation 01/29/2021 Essential hypertension 01/29/2021 Assessment & Plan (01/04/2024 2:55 PM DIRECTOR EMERGENCY SERVICES): Cont irbesartan and propranolol Localized swelling of both lower legs 01/29/2021 JONHSON (dyspnea on exertion) 01/29/2021 Elevated LFTs 01/29/2021 Elevated TSH 01/29/2021 Anemia, unspecified 01/29/2021 Assessment & Plan (01/05/2024 2:27 PM DIRECTOR EMERGENCY SERVICES): Baseline Hgb 11s, likely AOCD; no signs of bleeding -Small drop in post procedure Hgb, exam reassuring. No hematoma Excessive daytime sleepiness 01/29/2021 CKD (chronic kidney disease) 01/29/2021 Assessment & Plan (01/05/2024 2:30 PM DIRECTOR EMERGENCY SERVICES): Cr baseline 1-1.1. Stable Resolved Problems Problem Noted Date Diagnosed Date Resolved Date Atrial fibrillation 05/16/2022 09/15/20 23 Persistent atrial fibrillation 04/08/2022 06/11/2022 Assessment & Plan (05/17/2022 8:58 AM CDT): -s/p afib ablation yesterday -patient currently in NSR / sinus arrhythmia -cont Eliquis, dilt, propranolol -f/u EP Immunizations Immunization Administration Dates Next Due Moderna SARS-CoV-2 Monovalent Vaccination (12+ Y RS) 01/01/2021 Social History Tobacco Use Types Packs/Day Years [...] on file Legal Sex Female 2:54 AM DIRECTOR EMERGENCY SERVICES Gender Identity Not on file Sexual Orientation Not on file Last Filed Vital Signs Vital Sign Reading Time Taken Comments Blood Pressure 140/74 05/22/2025 10:54 AM CDT Pulse 71 05/22/2025 10:54 AM CDT Temperature 36.7 C (98.1 F) 01/05/2024 8:53 AM DIRECTOR EMERGENCY SERVICES Respiratory Rate 16 01/05/2024 8:53 AM DIRECTOR EMERGENCY SERVICES Oxygen Saturation 98% 05/22/2025 10:54 AM CDT Inhaled Oxygen Concentration - - Weight 59 kg (130 lb) 05/22/2025 10:54 AM CDT Height 157.5 cm (5' 2) 05/22/2025 10:54 AM CDT Body Mass Index 23.78 05/22/2025 10:54 AM CDT Plan of Treatment Not on file Medical Devices Implanted Type Area Industrial Trainer Device Identifier Shelf Expiration Date Model / Serial / Lot Vascade Mvp 6-12fr Venous Closure [id number] - [id number] Implanted:Qty : 1 on 05/16/2022 by Gilson Velazquez MD at [facility] Collagen Left: Groin [employer] 11/29/2025 800-612C- 10U / / [id number] Vascade Mvp 6-12fr Venous Closure [id number] - [id number] Implanted:Qty : 1 on 05/16/2022 by Gilson Velazquez MD at [facility] Collagen Right: Groin [employer] 11/29/2025 800-612C- 10U / / [id number] Vascade Mvp 6-12fr Venous Closure [id number] - [id number] Implanted:Qty : 1 on 05/16/2022 by Gilson Velazquez MD at [facility] Collagen Right: Groin [employer] 11/29/2025 800-612C- 10U / / [id number] [employer] Vascade Mvp 6-12fr Venous Closure [id number] - [id number] Implanted:Qty : 1 on 01/04/2024 by Gilson Velazquez MD at [facility] Other - see comments [employer] 09/21/2025 800-612C- 10U / / [id number] 30C Description:Vascade closure device [employer] Vascade Mvp 6-12fr Venous Closure [id number] - [id number] Implanted:Qty : 1 on 01/04/2024 by Gilson Velazquez MD at [facility] Other - see comments [employer] 08/18/2025 800-612C- 10U / / [id number] 18C Description:Vascade closure device [employer] Vascade Mvp 6-12fr Venous Closure [id number] - [id number] Implanted:Qty : 1 on 01/04/2024 by Gilsno Velazquez MD at [facility] Other - see comments [employer] 09/21/2025 800-612C- 10U / / [id number] 30C Description:Vascade closure device Procedures Procedure Name Priority Date/Time Associated Diagnosis Comments ECG 12-LEAD Routine 05/18/2025 11:39 AM CDT Paroxysmal atrial fibrillation (HCC) from Last 3 Months Results * ECG 12 lead (05/18/2025 11:39 AM CDT) us Gilson Velazquez MD ECG ORDERABLES Edited Result - Final from Last 3 Months Insurance [employer] [facility] [employer] ADVANTAGE CHOICE PPO [employer] ADVANTAGE CHOICE PPO Advance Directives For more information, please contact: [phone] * Full Code (Latest Code Status on File) Date Activated Date Inactivated Comments 01/04/2024 2:52 PM 01/05/2024 3:30 PM Care Teams Cutter And Presser Relationship Specialty Start Date End Date Alonzo Cornejo MD [address] [facility] [place] [address] PCP - General 05/23/13
--- OUTSIDE RECORDS SUMMARY | 2025-06-07 20:44 | XMS_ITS | Clinical Summary ---
Author Organization [facility] Address [address] [place] [address] Care Team Providers Care Welder Shielded Metal Arc Name Role Phone Unavailable Primary Care Provider Unavailabl e Immunizations Immunization Administration Dates Next Due MODERNA COVID-19 (12+) MRNA, LNP-S, PF, 100 MCG/ 0.5 ML DOSE 02/01/2021 Social History Tobacco Use Types Packs/Day Years Used Date Smoking Tobacco: Never Assessed Comments Unknown Sex and Gender Information Value Date Recorded Sex Assigned at Not on file Legal Sex Female 8:03 PM CDT Gender Identity Not on file Sexual Orientation Not on file Plan of Treatment Health Maintenance Due Date Last Done Comments DTaP, Tdap and Td Vaccines ( 1 - Tdap) 1956 Pneumococcal Vaccine: 50+ Years (1 of 1 - PCV) 1987 Zoster Vaccines (1 of 2) 1987 Annual Medicare Wellness Visit 2002 RSV Immunization or 60+ Years (1 - 1-dose 75+ series) 2012 COVID-19 Vaccine (3 - 2023-2 5 season) 2024 02/01/2021, 01/01/2021 PHQ-2 (Physician [place]) 11/30/2024 Meningococcal B Vaccine Aged Out No l onger eligible based on patient's age to complete this topic Meningococcal Vaccine Aged Out No lisseth shana eligible based on patient's age to complete this topic RSV Immunizations Under 20 Months Aged Out No longer eligible b ased on patient's age to complete this topic Insurance [employer]
--- OUTSIDE RECORDS SUMMARY | 2025-06-07 20:44 | XMS_ITS | Encounter Summary ---
Author Organization [facility] Address [address] [place] [address] Care Team Providers Care Corporate Tutor Name Role Phone Alonzo Cornejo MD Primary Care Provider [phone] Encounter Details Date Type Department Care Team (Late st Contact Info) Description 06/12/2021 Lab Requisition [facility] [address] [facility] [place] [address] Alfa Bell MD [address] [place] [address] Social History Tobacco Use Types Packs/Day Years Used Date Smoking Tobacco: Never Assessed Comments Unknown Sex and Gender Information Value Date Recorded Sex Assigned at Not on file Legal Sex Female 12:30 PM CDT Gender Identity Not on file Sexual Orientation Not on file documented as of this encounter Plan of Treatment Not on file documented as of this encounter Procedures Procedure Name Priority Date/Time Associated Diagnosis Comments DERMATOPATHOLOGY Routine 06/11/2021 12:0 0 AM CDT documented in this encounter Results * DERMATOPATHOLOGY (06/11/2021 12:00 AM CDT) Case Report Dermatopathology Report Case: [id number] Authorizing Provider: Alfa Bell MD Collected: 06/11/2021 12:00 AM Ordering Location: [facility] Received: 06/12/2021 12:56 PM Pathologist: Nilda Madrigal MD Specimen: Skin, right side nose 1:20 PM CDT DERMATOPATHOLOGY LABORATORY Final Diagnosis Specimen A. 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 1 1:20 PM CDT DERMATOPATHOLOGY LABORATORY Gross Description Specimen A: Received is one formalin filled container labeled with the patient's name and designated right side nose. The specimen consists of a shave biopsy measuring [id number]. Jar 0. 1 1:20 PM CDT DERMATOPATHOLOGY LABORATORY Microscopic Description Specimen A. SKIN, right side nose: The epidermis shows parakeratosis, full thickness disorderly maturation of keratinocytes, and dyskeratotic cells. The superficial aspect of nests are present in the dermis. 1 1:20 PM CDT DERMATOPATHOLOGY LABORATORY Disclaimer An external and internal positive and negative controls are appropriate for the histochemical, immunohistochemical and immunofluorescence stain(s) in this case (if any), except where stated explicitly. The performance characteristics of the stain(s) cited in this report were developed and its performance characteristic determined by the Dermatopathology Laboratory at [facility], directed by Dr. Meghan Esquivel. These tests need not be, and therefore are not, approved by the [place] Food and Drug Administration. The tests are used for clinical purposes. Billing Codes Specimen Charges Stain Charges 76525 1 1 1:20 PM CDT DERMATOPATHOLOGY LABORATORY Embedded Images 1 1:20 PM CDT DERMATOPATHOLOGY LABORATORY Pathology/Cytolog y TISSUE SPECIMEN FROM SKIN / Unknown 06/11/2021 06/12/2021 12:56 PM CDT Alfa Bell MD LAB - PATHOLOGY/CYTOLOGY ORD ERABLES Final Result DERMATOPATHOLOGY LABORATORY [facility] - Department of Dermatology [facility] [address] [place] [address], [address] [phone] documented in this encounter Visit Diagnoses Not on filedocumented in this encounter Care Teams Corporate Tutor Relationship Specialty Start Date End Date Alonzo Cornejo MD [address] [place] [address] PCP - General 06/12/21 documented as of this encounter
[2025-06-07 20:49] VITALS: BP 134/71; PULSE 74; RESP 16; TEMP 36.3; O2SAT 99
[2025-06-07 22:09] VITALS: BP 148/67; PULSE 61; RESP 17; O2SAT 100
--- OUTSIDE RECORDS SUMMARY | 2025-06-07 23:10 | XMS_ITS | Clinical Summary ---
Author Organization [facility] Address [address] [place] [address] Care Team Providers Care Check Processing Clerk Name Role Phone Alonzo Cornejo MD Primary Care Provider [phone] Source Comments [facility],non-owned Affiliates and Associated Physician Practices is amultiple site organization consisting of ambulatory clinics and hospital sitesin [place], [place], [place] and [place]. This disclosure is being madepursuant to the Care Everywhere program and may not contain all information available regarding this patient. Last updated 18.[facility] Social History Tobacco Use Types Packs/Day Years [...] topic Insurance MEDICARE MEDICARE MEDICARE Care Teams Check Processing Clerk Relationship Specialty Start Date End Date Alonzo Cornejo MD [address] [place] [address] PCP - General 06/12/21
--- OUTSIDE RECORDS SUMMARY | 2025-06-07 23:11 | XMS_ITS | Clinical Summary ---
Author Organization [facility] [address] Address [address] [place] [address] Care Team Providers Care Automatic Dispenser Mechanic Name Role Phone Alonzo Cornejo MD Primary Care Provider Allergies No known active allergies Medications propranoloL (INDERAL) 80 mg tablet Take 1 tablet (80 mg total) by mouth every 12 (twelve) hours 1 Active omeprazole (PriLOSEC) 40 mg capsuleIndication s:Stress Ulcer Prophylaxis Take 1 capsule (40 mg total) by mouth general foreman before breakfast 1 Active Tiadylt ER 120 mg 24 hr capsule Take 1 capsule (120 mg total) by mouth general foreman before breakfast 1 Active acetaminophen (TYLENOL) 500 [...] Date Diagnosed Date Atypical atrial flutter 05/18/2025 skilled nursing current use of anticoagulant therapy 0 05/18/2025 Chronic fatigue 12/29/2023 Reactive depression 12/29/2023 CKD (chronic kidney disease) , symptom management only, stage 3 (moderate) 12/29/2023 Atrial fibrillation 12/08/2023 Assessment & Plan (01/05/2024 2:29 PM FLUX MIXER): Hx prior DCCV x2 and ablation (04/2022). [...] 05/17/2022 Assessment & Plan (01/04/2024 2:57 PM FLUX MIXER): Cont statin Assessment & Plan (05/17/2022 8:58 AM CDT): -continue statin GERD (gastroesophageal reflux disease) Assessment & Plan (05/17/2022 8:58 AM CDT): -cont PPI (HFpEF) heart failure with preserved ejection fr action 03/28/2021 Assessment & Plan (01/05/2024 2:27 PM FLUX MIXER): TTE with EF 64% and grade 1 diastolic dysfunction. Appears euvolemic. Not in exacerbation -Not on diuretics at home -Strict I&Os, daily weights Loneliness 03/28/2021 Valvular heart disease 02/13/2021 Paroxysmal atrial fibrillation 01/29/2021 Chronic anticoagulation 01/29/2021 Essential hypertension 01/29/2021 Assessment & Plan (01/04/2024 2:55 PM FLUX MIXER): Cont irbesartan and propranolol Localized swelling of both lower legs 01/29/2021 JOHNSON (dyspnea on exertion) 01/29/2021 Elevated LFTs 01/29/2021 Elevated TSH 01/29/2021 Anemia, unspecified 01/29/2021 Assessment & Plan (01/05/2024 2:27 PM FLUX MIXER): Baseline Hgb 11s, likely AOCD; no signs of bleeding -Small drop in post procedure Hgb, exam reassuring. No hematoma Excessive daytime sleepiness 01/29/2021 CKD (chronic kidney disease) 01/29/2021 Assessment & Plan (01/05/2024 2:30 PM FLUX MIXER): Cr baseline 1-1.1. Stable Resolved Problems Problem Noted Date Diagnosed Date Resolved Date Atrial fibrillation 05/16/2022 09/15/20 Persistent atrial fibrillation 04/08/2022 06/11/2022 Assessment & Plan (05/17/2022 8:58 AM CDT): -s/p afib ablation yesterday -patient currently in NSR / sinus arrhythmia -cont Eliquis, dilt, propranolol -f/u EP Encounters Date Type Department Care Team Description 05/22/2025 11:00 AM CDT Office Visit [facility] Cardiology [address] [place] [address] Natanael Concepcion MD Paroxysmal atrial fibrillation (HCC) (Primary Dx); Valvular heart disease 05/18/2025 11:30 AM CDT Office Visit [facility] Cardiology [address] [facility] Advanced Medicine 8th [address] [address] Gilson Velazquez MD S/P radiofrequency ablation operation for arrhythmia (Primary Dx); Paroxysmal atrial fibrillation (HCC); Atypical atrial flutter (HCC); 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 05/18/2025 Results Follow-Up [facility] Cardiology [address] [facility] Medical Office Building [address] [place] [address] Gilson Velazquez MD ECG 12 lead from Last 3 Months Immunizations Immunization Administration Dates Next Due Moderna SARS-CoV-2 Monovalent Vaccination (12+ Y RS) 01/01/2021 Surgical History Surgery Date Site/Laterality Comments ABLATION 2021 atrial fibrillation CARDIOVERSION 2022 Medical History Medical History Date Comments Hypertension Heart valve disease Hyperlipidemia CKD (chronic kidney disease) stage 3, GFR 30-59 ml/min ([facility]) Eye problem Blood vessel bur st in [...] on file Legal Sex Female 2:54 AM FLUX MIXER Gender Identity Not on file Sexual Orientation Not on file Obstetrics History Last Filed Vital Signs Vital Sign Reading Time Taken Comments Blood Pressure 140/74 05/22/2025 10:54 AM CDT Pulse 71 05/22/2025 10:54 AM CDT Temperature 36.7 C (98.1 F) 01/05/2024 8:53 AM FLUX MIXER Respiratory Rate 16 01/05/2024 8:53 AM FLUX MIXER Oxygen Saturation 98% 05/22/2025 10:54 AM CDT [...] history exists Medical Devices Implanted Type Area Grinder Operator Tool Device Identifier Shelf Expiration Date Model / Serial / Lot Vascade Mvp 6-12fr Venous Closure [id number] - [id number] Implanted:Qty : 1 on 05/16/2022 by Gilson Velazquez MD at [facility] Collagen Left: Groin [employer] 11/29/2025 800-612C- 10U / / [id number] Vascade Mvp 6-12fr Venous Closure [id number] - [id number] Implanted:Qty : 1 on 05/16/2022 by Gilson Velazquez MD at [facility] Collagen Right: Groin [employer] 11/29/2025 800-612C- 10U / / [id number] Vascade Mvp 6-12fr Venous Closure [id number] - [id number] Implanted:Qty : 1 on 05/16/2022 by Gilson Velazquez MD at [facility] Collagen Right: Groin [employer] 11/29/2025 800-612C- 10U / / [id number] [employer] Vascade Mvp 6-12fr Venous Closure [id number] - [id number] Implanted:Qty : 1 on 01/04/2024 by Gilson Velazquez MD at [facility] Other - see comments [employer] 09/21/2025 800-612C- 10U / / [id number] 30C Description:Vascade closure device [employer] Vascade Mvp 6-12fr Venous Closure [id number] - [id number] Implanted:Qty : 1 on 01/04/2024 by Gilson Velazquez MD at [facility] Other - see comments [employer] 08/18/2025 800-612C- 10U / / [id number] 18C Description:Vascade closure device [employer] Vascade Mvp 6-12fr Venous Closure [id number] - [id number] Implanted:Qty : 1 on 01/04/2024 by Gilson Velazquez MD at [facility] Other - see comments [employer] 09/21/2025 800-612C- 10U / / [id number] 30C Description:Vascade closure device Procedures Procedure Name Priority Date/Time Associated Diagnosis Comments ECG 12-LEAD Routine 05/18/2025 11:39 AM CDT Paroxysmal atrial fibrillation (HCC) from Last 3 Months Results * ECG 12 lead (05/18/2025 11:39 AM CDT) us Gilson Velazquez MD ECG ORDERABLES Edited Result - Final from Last 3 Months Insurance [facility] [employer] ADVANTAGE CHOICE PPO Member Subscriber Plan / Payer (Ef fective 2023-Present) Name:Luly Luis Relation to Subscriber:Self Name:Luly Luis Payer ID:[id number] (NAIC) Type:MEDICARE RISK OTHER [facility]: [address] [facility] [address] [employer] ADVANTAGE CHOICE PPO Advance Directives For more information, please contact: [phone] * Full Code (Latest Code Status on File) Date Activated Date Inactivated Comments 01/04/2024 2:52 PM 01/05/2024 3:30 PM Care Teams Automatic Dispenser Mechanic Relationship Specialty Start Date End Date Alonzo Cornejo MD [address] [facility] [address] [place] [address] PCP - General 05/23/13
--- OUTSIDE RECORDS SUMMARY | 2025-06-07 23:11 | XMS_ITS | Referral Summary ---
Author Organization [facility] [address] [facility] [address] Address [address] [place] [address] Care Team Providers Care Scaffold Worker Name Role Phone Alonzo Cornejo MD Primary Care Provider Encounters Date Type Department Care Team Description 05/22/2025 11:00 AM CDT Office Visit [facility] Cardiology [address] [place] [address] Natanael Concepcion MD Paroxysmal atrial fibrillation (HCC) (Primary Dx); Valvular heart disease 05/18/2025 Results Follow-Up [facility] Cardiology [address] [facility] Medical Office Building [address] [place] [address] Gilsno Velazquez MD ECG 12 lead 05/18/2025 11:30 AM CDT Office Visit [facility] Cardiology [facility] Advanced Medicine 8th [place] [address] [place] [address] Gilson Velazquez MD S/P radiofrequency ablation operation for arrhythmia (Primary Dx); Paroxysmal atrial fibrillation (HCC); Atypical atrial flutter (HCC); retirement current use of anticoagulant therapy from Last 3 Months Allergies No known active allergies Medications propranoloL (INDERAL) 80 mg tablet Take 1 tablet (80 mg total) by mouth every 12 (twelve) hours Active omeprazole (PriLOSEC) 40 mg capsuleIndication s:Stress Ulcer Prophylaxis Take 1 capsule (40 mg total) by mouth industrial maintenance manager before breakfast 1 Active Tiadylt ER 120 mg 24 hr capsule Take 1 capsule (120 mg total) by mouth industrial maintenance manager before breakfast 1 Active acetaminophen (TYLENOL) 500 [...] Date Diagnosed Date Atypical atrial flutter 05/18/2025 retirement current use of anticoagulant therapy 0 05/18/2025 Chronic fatigue 12/29/2023 Reactive depression 12/29/2023 CKD (chronic kidney disease) , symptom management only, stage 3 (moderate) 12/29/2023 Atrial fibrillation 12/08/2023 Assessment & Plan (01/05/2024 2:29 PM STAGE BUILDER): Hx prior DCCV x2 and ablation (04/2022). [...] 05/17/2022 Assessment & Plan (01/04/2024 2:57 PM STAGE BUILDER): Cont statin Assessment & Plan (05/17/2022 8:58 AM CDT): -continue statin GERD (gastroesophageal reflux disease) 2 Assessment & Plan (05/17/2022 8:58 AM CDT): -cont PPI (HFpEF) heart failure with preserved ejection fr action 03/28/2021 Assessment & Plan (01/05/2024 2:27 PM STAGE BUILDER): TTE with EF 64% and grade 1 diastolic dysfunction. Appears euvolemic. Not in exacerbation -Not on diuretics at home -Strict I&Os, daily weights Loneliness 03/28/2021 Valvular heart disease 02/13/2021 Paroxysmal atrial fibrillation 01/29/2021 Chronic anticoagulation 01/29/2021 Essential hypertension 01/29/2021 Assessment & Plan (01/04/2024 2:55 PM STAGE BUILDER): Cont irbesartan and propranolol Localized swelling of both lower legs 01/29/2021 JOHNSON (dyspnea on exertion) 01/29/2021 Elevated LFTs 01/29/2021 Elevated TSH 01/29/2021 Anemia, unspecified 01/29/2021 Assessment & Plan (01/05/2024 2:27 PM STAGE BUILDER): Baseline Hgb 11s, likely AOCD; no signs of bleeding -Small drop in post procedure Hgb, exam reassuring. No hematoma Excessive daytime sleepiness 01/29/2021 CKD (chronic kidney disease) 01/29/2021 Assessment & Plan (01/05/2024 2:30 PM STAGE BUILDER): Cr baseline 1-1.1. Stable Resolved Problems Problem [...] on file Legal Sex Female 2:54 AM STAGE BUILDER Gender Identity Not on file Sexual Orientation Not on file Last Filed Vital Signs Vital Sign Reading Time Taken Comments Blood Pressure 140/74 05/22/2025 10:54 AM CDT Pulse 71 05/22/2025 10:54 AM CDT Temperature 36.7 C (98.1 F) 01/05/2024 8:53 AM STAGE BUILDER Respiratory Rate 16 01/05/2024 8:53 AM STAGE BUILDER Oxygen Saturation 98% 05/22/2025 10:54 AM CDT Inhaled Oxygen Concentration - - Weight 59 kg (130 lb) 05/22/2025 10:54 AM CDT Height 157.5 cm (5' 2) 05/22/2025 10:54 AM CDT Body Mass Index 23.78 05/22/2025 10:54 AM CDT Plan of Treatment Not on file Medical Devices Implanted Type Area Chief Administrative Officer Device Identifier Shelf Expiration Date Model / Serial / Lot Vascade Mvp 6-12fr Venous Closure [id number] - [id number] Implanted:Qty : 1 on 05/16/2022 by Gilson Velazquez MD at [facility] Collagen Left: Groin [employer] 11/29/2025 800-612C- 10U / / [id number] Vascade Mvp 6-12fr Venous Closure [id number] - [id number] Implanted:Qty : 1 on 05/16/2022 by Gilson Velazquez MD at [facility] Collagen Right: Groin [employer] 11/29/2025 800-612C- 10U / / [id number] Vascade Mvp 6-12fr Venous Closure [id number] - [id number] Implanted:Qty : 1 on 05/16/2022 by Gilson Velazquez MD at [facility] Coll[employer] Right: Groin [employer] 11/29/2025 800-612C- 10U / / [id number] [employer] Vascade Mvp 6-12fr Venous Closure [id number] - [id number] Implanted:Qty : 1 on 01/04/2024 by Gilson Velazquez MD at [facility] Other - see comments [employer] 09/21/2025 800-612C- 10U / / [id number] 30C Description:Vascade closure device [employer] Vascade Mvp 6-12fr Venous Closure [id number] - [id number] Implanted:Qty : 1 on 01/04/2024 by Gilson Velazquez MD at [facility] Other - see comments [employer] 08/18/2025 800-612C- 10U / / [id number] 18C Description:Vascade closure device [employer] Vascade Mvp 6-12fr Venous Closure [id number] - [id number] Implanted:Qty : 1 on 01/04/2024 by Gilson Velazquez MD at [facility] Other - see comments [employer] 09/21/2025 800-612C- 10U / / [id number] 30C Description:Vascade closure device Procedures Procedure Name Priority Date/Time Associated Diagnosis Comments ECG 12-LEAD Routine 05/18/2025 11:39 AM CDT Paroxysmal atrial fibrillation (HCC) from Last 3 Months Results * ECG 12 lead (05/18/2025 11:39 AM CDT) us Gilson Velazquez MD ECG ORDERABLES Edited Result - Final from Last 3 Months Insurance [facility] [facility] [employer] ADVANTAGE CHOICE PPO [employer] ADVANTAGE CHOICE PPO Advance Directives For more information, please contact: [phone] * Full Code (Latest Code Status on File) Date Activated Date Inactivated Comments 01/04/2024 2:52 PM 01/05/2024 3:30 PM Care Teams Scaffold Worker Relationship Specialty Start Date End Date Alonzo Cornejo MD [address] [facility] [address] [place] [address] PCP - General 05/23/13
--- OUTSIDE RECORDS SUMMARY | 2025-06-07 23:11 | XMS_ITS | Encounter Summary ---
Author Organization [facility] Address [address] [place] [address] Care Team Providers Care Set Up And Charger Name Role Phone Alonzo Cornejo MD Primary Care Provider [phone] Encounter Details Date Type Department Care Team (Late st Contact Info) Description 06/12/2021 Lab Requisition [facility] [address] [id number] Alfa Bell MD [address] [place] [address] Social History Tobacco Use Types [...] AM CDT) Case Report Dermatopathology Report Case: [id number] Authorizing Provider: Alfa Bell MD Collected: 06/11/2021 12:00 AM Ordering Location: [facility] Received: 06/12/2021 12:56 PM [...] specimen consists of a shave biopsy measuring 6c9x0km. Jar 0. 1 1:20 PM CDT DERMATOPATHOLOGY [...] characteristic determined by the Dermatopathology Laboratory at [facility], directed by Dr. Meghan Esquivel. These tests need not be, and therefore are not, approved by the [place] Food and Drug Administration. The tests are used for clinical purposes. Billing Codes Specimen Charges Stain Charges 48813 1 1 1:20 PM CDT DERMATOPATHOLOGY LABORATORY Embedded Images 1 1:20 PM CDT DERMATOPATHOLOGY LABORATORY Pathology/Cytolog y TISSUE SPECIMEN FROM SKIN / Unknown 06/11/2021 06/12/2021 12:56 PM CDT Alfa Bell MD LAB - PATHOLOGY/CYTOLOGY ORD ERABLES Final Result DERMATOPATHOLOGY LABORATORY [facility] - Department of Dermatology [facility] [address] [place] [address], 3rd Floor [address] [phone] documented in this encounter Visit Diagnoses Not on filedocumented in this encounter Care Teams Set Up And Charger Relationship Specialty Start Date End Date Alonzo Cornejo MD [address] [place] [address] PCP - General 06/12/21 documented as of this encounter
--- OUTSIDE RECORDS SUMMARY | 2025-06-07 23:11 | XMS_ITS | Clinical Summary ---
Author Organization [facility] Address [address] [place] [address] Care Team Providers Care Building Economist Name Role Phone Unavailable Primary Care Provider [...] 5 season) 2024 02/01/2021, 01/01/2021 PHQ-2 (Physician [place]) 11/30/2024 Meningococcal B Vaccine Aged Out No l onger eligible based on patient's age to complete this topic Meningococcal Vaccine Aged Out No lisseth shana eligible based on patient's age to complete this topic RSV Immunizations Under 20 Months Aged Out No longer eligible b ased on patient's age to complete this topic Insurance [employer]
--- OUTSIDE RECORDS SUMMARY | 2025-06-07 23:11 | XMS_ITS | Encounter Summary ---
Author Organization [facility] Address [address] [place] [address] Phone Care Team Providers Care Operators School Manager Name Role Phone Alonzo Cornejo MD Primary Care Provider Encounter Details Date Type Department Care Team (Late st Contact Info) Description 05/18/2025 Results Follow-Up [facility] Cardiology [facility] Medical Office Building [address] [place] [address] Gilson Velazquez MD Pending sale to [facility] [address] [id number] ECG 12 lead Social History Tobacco Use [...] on file Legal Sex Female 2:54 AM RELATIONS SPECIALIST Gender Identity Not on file Sexual Orientation Not on file documented as of this encounter Plan of Treatment Not on file documented as of this encounter Visit Diagnoses Not on filedocumented in this encounter Care Teams Operators School Manager Relationship Specialty Start Date End Date Alonzo Cornejo MD [address] [facility] [address] [place] [address] PCP - General 05/23/13 documented as of this encounter
[2025-06-08] MEDS: CYCLOBENZAPRINE HCL 5 MG TABLET PO (00:01)
[2025-06-08] MEDS: ACETAMINOPHEN 500 MG TABLET 1000 MG PO (00:01)
[2025-06-08] MEDS: traMADol HCL (*CRX) 25 MG TABLET PO (00:02)
--- NOTE | 2025-06-08 02:00 | ED_ITS ---
HPI - Back Pain/Injury General Chief Complaint: Back Pain/Injury Stated Complaint: leg pain Time Seen by Provider: 06/07/25 22:42 Source: patient Mode of arrival: ambulatory Limitations: no limitations History of Present Illness HPI Narrative: Patient is an 89-year-old female who presents the ED with report of right lower back/right leg pain. Patient reports having pain throughout her right lower back, right buttock region, radiating down to her right lateral thigh over the past several days. Pain worse with movement, ambulating. She denies any fall or injury. Notes that the pain began after bending over and trying to lift something heavy. She contacted her primary care doctor for this and was prescribed baclofen. She took this once, but denied improvement. Denies any numbness or tingling in extremity, weakness of the leg, saddle anesthesia, bowel or bladder incontinence, abdominal pain. Patient is on Eliquis due to history of pAFib. Related Data Home Medications ?Medication ?Instructions ?Recorded ?Confirmed ?Last Taken ?Type calcium carbonate 600 mg PO BID 09/23/23 05/29/25 09/24/23 History Allergies Allergy/AdvReac Type Severity Reaction Status Date / Time No Known Allergies Allergy Verified 06/07/25 22:11 Review of Systems Review of Systems: All systems reviewed & are unremarkable except as noted in HPI. All systems reviewed & are unremarkable except as noted in HPI and below PMFSH Past Medical History Medical History Superior mesenteric artery stenosis asymptomatic, seen on CT Diastolic CHF Paroxysmal A-fib Status post AFib ablation by Dr. Velazquez at [place] in February 2022. Hyperlipidemia OAB (overactive bladder) CKD (chronic kidney disease), stage III Hypertensive CKD (chronic kidney disease) Raynauds disease Family History Family History Mother Family history of coronary artery disease Social History Social History Social History: , lives alone in [place], 2 sons and 1 daughter. Smoking status: Never smoker Second hand tobacco smoke exposure: No Alcohol intake: never Substance use: never Substance use type: does not use Lack of Transportation: No Lack of Food: Never True Current Housing: I Have Housing Concerned About Future Housing: No Difficulty Paying Gas/Electric Bills: No Difficulty Paying for Meds: No Currently Unemployed: YES Education: Decline to Answer Difficulty w/ Childcare or Family Care: No Living arrangements: alone Occupation/Education: retired Gender identity (if verbalized by the patient): Female Sexual Orientation (if Verbalized by the Patient): Straight or Heterosexual Spiritual care concerns: No Exam Narrative: GENERAL: Elderly but well appearing, well-nourished, non-toxic, in no acute distress. HEAD: Normocephalic, atraumatic. RESPIRATORY: Airway patent, respirations nonlabored. Clear to auscultation bilaterally, no rales, rhonchi, wheezing. CARDIOVASCULAR: Regular rate and rhythm without murmurs, rubs, or gallops. Pedal pulses intact. MUSCULOSKELETAL: Moves all extremities. No gross deformities. No significant lumbar midline spinal tenderness. Mild tenderness to palpation over right SI region, right lateral thigh region. No significant tenderness over right hip. Positive straight leg raise on right. Sensation intact throughout extremity. SKIN: Warm, dry, normal color. NEURO: A&O X3. Speech clear. Steady gait. No ataxic movements. PSYCHIATRIC: Appropriate mood and affect. Normal interaction. Course Vital Signs Vital signs: Vital Signs Temperature 97.4 F L 06/07/25 20:49 Pulse Rate 74 06/07/25 20:49 Respiratory Rate 16 06/07/25 20:49 Blood Pressure 134/71 06/07/25 20:49 Pulse Oximetry 99 06/07/25 20:49 Oxygen Delivery Room Air 06/07/25 20:49 Temperature 97.4 F L 06/07/25 20:49 Pulse Rate 61 06/07/25 22:09 Respiratory Rate 17 06/07/25 22:09 Blood Pressure 148/67 H 06/07/25 22:09 Pulse Oximetry 100 06/07/25 22:09 Oxygen Delivery Room Air 06/07/25 20:49 MDM - Back Pain/Injury MDM Narrative Medical decision making narrative: Patient's pain is positional and localized to paraspinal muscles without signs of cord compression or cauda equina. Normal neurologic exams. No red flag symptoms. No fever noted and no significant risk factors for osteomyelitis or spinal epidural abscess. No symptoms or signs to suggest pain is referred from abdominal or source. No fall or injury to suggest hip for pelvic fracture. No distinct bony tenderness over hip. CT of lumbar spine shows some degenerative changes, but no acute fracture or subluxation. Patient given Solu-Medrol, tramadol, Flexeril, Tylenol in the ED. On re- evaluation, she is feeling much improved. Patient ambulates with a steady gait and is felt to be a reasonable candidate for continued outpatient management. Will prescribe Medrol Dosepak, Flexeril, short course of tramadol for home use. Advised to likely be sore the next several days. Recommended close follow-up with PCP as outpatient. Discussed strict return precautions. Patient voiced understanding, in agreement with plan, feels comfortable going home. Discharged in stable condition. Medical Records Attestation: I reviewed the patient's medical records. Imaging Data Attestation: I personally reviewed and interpreted this imaging study as follows: Radiologist's impression: STAT RAD CT lumbar spine: No acute fracture subluxation of the lumbar spine Discharge Plan Discharge Clinical Impression: Lumbar radiculopathy Strain of lumbar region Qualifiers: Encounter type: initial encounter Qualified Code(s): S39.012A - Strain of muscle, fascia and tendon of lower back, initial encounter Patient Disposition: Home Condition: Stable Instructions: Antibiotic Form, Acute Low Back Pain (ED), Lumbar Radiculopathy (ED), Lower Back Exercises (ED) Additional Instructions: Continue Tylenol as needed for pain. You may take 1000 mg every 6 hours as needed. You may use ice/heat to area of pain. Utilize tramadol as needed for more severe pain. Take muscle relaxers as needed and prescribed. Recommend taking these at night as they may cause sedation. Do not drive, operate heavy machinery, drink alcohol while on muscle relaxers as this may cause further sedation. Use caution taking tramadol and Flexeril at the same time as the scan both cause sedation. Follow-up with your primary care doctor for further evaluation. Return to the ED if you experience worsening or severe pain, recurrent injury, numbness in groin or legs, going to the bathroom without meaning to, unable to keep down food or drink, or any other symptoms of concern. Patient Language: St Helenian Prescriptions: New cyclobenzaprine 5 mg tablet 5 mg PO TID PRN (Reason: muscle spasm) Qty: 15 0RF tramadol 50 mg tablet 25 mg PO Q6H PRN (Reason: pain) Qty: 15 0RF methylprednisolone [Medrol (Bart)] 4 mg tablets,dose pack See Rx Instructions PO .COMPLEX Qty: 21 0RF Rx Instructions: orally per package directions No Action atorvastatin 20 mg tablet 20 mg PO DAILY Qty: 30 2RF calcium carbonate 600 mg calcium (1,500 mg) Tablet 600 mg PO BID diltiazem HCl [Tiadylt ER] 120 mg capsule,extended release 24hr See Rx Instructions .ROUTE .COMPLEX Qty: 90 2RF Dose Instruction: 120 MG ORALLY DAILY Rx Instructions: 120 MG ORALLY DAILY omeprazole 40 mg capsule,delayed release(DR/EC) 40 mg PO DAILY Qty: 90 2RF irbesartan 150 mg tablet See Rx Instructions .ROUTE .COMPLEX Qty: 90 4RF Dose Instruction: TAKE 1 TABLET BY MOUTH EVERY DAY Rx Instructions: TAKE 1 TABLET BY MOUTH EVERY DAY triamcinolone acetonide 0.5 % ointment 1 applic topical BID Qty: 15 0RF Rx Instructions: Apply twice daily until rash resolves or for no more than 1 week propranolol 80 mg tablet See Rx Instructions .ROUTE .COMPLEX Qty: 180 2RF Dose Instruction: TAKE 1 TABLET BY MOUTH EVERY 12 HOURS Rx Instructions: TAKE 1 TABLET BY MOUTH EVERY 12 HOURS Eliquis 2.5 mg tablet 2.5 mg PO BID Qty: 60 5RF baclofen 5 mg tablet 5 mg PO TID PRN (Reason: muscle spasm) Qty: 20 0RF Follow-up/Referrals: Alonzo Cornejo MD [Primary Care Provider] - Time of Disposition: 02:12
== END 2025-06-08 02:25 | disposition home or self-care (01) ==
PROVIDERS: Emergency Provider Physician Assistant; PCP Family Medicine
DX: M54.16 Radiculopathy, lumbar region (principal); S39.012A Strain of muscle, fascia and tendon of lower back, initial encounter; I13.0 Hypertensive heart and chronic kidney disease with heart failure and stage 1 through stage 4 chronic kidney disease, or unspecified chronic kidney disease; N18.9 Chronic kidney disease, unspecified; I50.30 Unspecified diastolic (congestive) heart failure; E78.5 Hyperlipidemia, unspecified; I73.00 Raynaud's syndrome without gangrene
CPT/HCPCS: 72131; 96372; 99284; A9270; J2919

== ENCOUNTER 2025-06-26 11:53 | Inpatient (IN) | payer OTHER, SELFPAY ==
--- NOTE | ~2025-06-26 | XR_ITS ---
EXAMINATION: XR lumbar spine 2-3V DATE: 06/26/2025 14:33 INDICATION: Back pain TECHNIQUE: Anteroposterior and lateral views of the lumbar spine, and cone-down lateral view of the l umbosacral junction were obtained. COMPARISON: None. FINDINGS: 25 degrees lumbar dextroscoliosis. Sagittal alignment is normal. Vertebral body heights are normal. S evere left-sided disc height loss at L2-L3 and L3-L4, moderate diffuse disc bulge at L1-L2, mild to m oderate right-sided predominant disc height loss at L4-L5 and T12-L1 and mild disc height loss at L5- S1. Moderate to severe facet osteoarthritis in the lower lumbar spine. No fractures identified. Mild left-sided and moderate right-sided sacroiliac osteoarthritis. Atherosclerotic abdominal aorta. Addit ional atherosclerotic calcifications and phleboliths in the pelvis. Lung bases are clear. Heart size is normal. IMPRESSION: 1. 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 Reviewed, dictated and finalized at location A.
--- NOTE | ~2025-06-26 | MR_ITS ---
EXAMINATION: MR lumbar spine wo con DATE: 06/27/2025 13:18 INDICATION: L1 compression fracture with lumbar radicular pain. TECHNIQUE: Magnetic resonance imaging (MRI) of the lumbar spine was performed without intravenous con trast. Sequences included sagittal T2-weighted FSE, sagittal T2-weighted FS FSE, sagittal T1-weighted FSE, and axial T2-weighted FSE. COMPARISON: None FINDINGS: 25 degree lumbar dextroscoliosis measured between L1 and L4. Sagittal alignment is normal. Chronic L1 burst fracture with 25% anterior vertebral body height loss and 3 mm central retropulsion. Remaining vertebral body heights are normal. There is severe disc height loss with left-sided predominance and associated fibrofatty vascular degenerative endplate changes at L2-L3 and L3-L4. Mild to moderate ri ght subpulmonic disc height loss with additional mild fibrovascular degenerative endplate changes at L1-L2 and L4-L5. The conus medullaris terminates at L2-L3. There is normal signal in the caudal spina l cord. Paravertebral soft tissues are unremarkable. The following disc levels are specifically discu ssed: T12-L1: Disc is mildly bulging. There is mild bilateral facet joint osteoarthritis. There is minimal bilateral neural foraminal stenosis. There is minimal central canal stenosis at the level of disc and mild central canal stenosis slightly more caudally retropulsion at L1. L1-L2: Disc is bulging. There is mild right and moderate left facet joint osteoarthritis. There is mi ld right and moderately neural foraminal stenosis. There is mild central canal stenosis. L2-L3: Disc is bulging with annular fissure. There is moderate bilateral facet joint osteoarthritis. There is mild right and moderate left neural foraminal stenosis. There is mild central canal stenosis . L3-L4: Disc is bulging with annular fissure. There is moderate bilateral facet joint osteoarthritis. There is moderate left and mild to moderate right neural foraminal stenosis. There is mild central ca nal stenosis. L4-L5: Disc is bulging with annular fissure. There is hypertrophy of the ligamentum flavum. There is hypertrophy of the ligamentum flavum. There is moderate left and severe right facet joint osteoarth ritis. There is moderate right and mild to moderate left neural foraminal stenosis. There is mild to moderate central canal stenosis. L5-S1: Disc is mildly bulging with annular fissure. There is severe bilateral facet joint osteoarthri tis. There is severe right and mild to moderate left neural foraminal stenosis. There is no central c anal stenosis. IMPRESSION: 1. 25 degrees lumbar dextroscoliosis with severe spondylosis. Reviewed, dictated and finalized at location A.
--- OUTSIDE RECORDS SUMMARY | 2025-06-26 12:00 | XMS_ITS | Clinical Summary ---
Author Organization [facility] [employer] Address [address] [place] [address] Care Team Providers Care Welt Rougher Name Role Phone Alonzo Cornejo MD Primary Care Provider [phone] Source Comments [facility] [employer],non-owned Affiliates and Associated Physician Practices is amultiple site organization consisting of ambulatory clinics and hospital sitesin [place], [place], [place] and [place]. This disclosure is being madepursuant to the Care Everywhere program and may not contain all information available regarding this patient. Last updated 18.[facility] [employer] Social History Tobacco Use Types Packs/Day Years [...] topic Insurance MEDICARE MEDICARE MEDICARE Care Teams Welt Rougher Relationship Specialty Start Date End Date Alonzo Cornejo MD [address] [place] [address] PCP - General 06/12/21
--- OUTSIDE RECORDS SUMMARY | 2025-06-26 12:00 | XMS_ITS | Encounter Summary ---
Author Organization [facility] Address [address] [place] [address] Care Team Providers Care Lamination Technician Name Role Phone Alonzo Cornejo MD Primary Care Provider [phone] Encounter Details Date Type Department Care Team (Late st Contact Info) Description 06/12/2021 Lab Requisition [facility] [address] [place] [id number] Alfa Bell MD [address] [place] [address] Social History Tobacco Use Types [...] AM CDT) Case Report Dermatopathology Report Case: [id number] Authorizing Provider: Alfa Bell MD Collected: 06/11/2021 12:00 AM Ordering Location: [facility] Received: 06/12/2021 12:56 PM [...] specimen consists of a shave biopsy measuring [id number]. Jar 0. 1 1:20 PM CDT DERMATOPATHOLOGY [...] characteristic determined by the Dermatopathology Laboratory at [facility], directed by Dr. Meghan Esquivel. These tests need not be, and therefore are not, approved by the [place] Food and Drug Administration. The tests are used for clinical purposes. Billing Codes Specimen Charges Stain Charges 01904 1 1 1:20 PM CDT DERMATOPATHOLOGY LABORATORY Embedded Images 1 1:20 PM CDT DERMATOPATHOLOGY LABORATORY Pathology/Cytolog y TISSUE SPECIMEN FROM SKIN / Unknown 06/11/2021 06/12/2021 12:56 PM CDT Alfa Bell MD LAB - PATHOLOGY/CYTOLOGY ORD ERABLES Final Result DERMATOPATHOLOGY LABORATORY [facility] - Department of Dermatology [facility] Medicine [address] [place] [address], [address] [phone] documented in this encounter Visit Diagnoses Not on filedocumented in this encounter Care Teams Lamination Technician Relationship Specialty Start Date End Date Alonzo Cornejo MD [address] [place] [address] PCP - General 06/12/21 documented as of this encounter
--- OUTSIDE RECORDS SUMMARY | 2025-06-26 12:00 | XMS_ITS | Clinical Summary ---
Author Organization [facility] [address] Address [address] [place] [address] Care Team Providers Care Sales Support Engineer Name Role Phone Alonzo Cornejo MD Primary Care Provider Allergies No known active allergies Medications propranoloL (INDERAL) 80 mg tablet Take 1 tablet (80 mg total) by mouth every 12 (twelve) hours 1 Active omeprazole (PriLOSEC) 40 mg capsuleIndication s:Stress Ulcer Prophylaxis Take 1 capsule (40 mg total) by mouth sociocultural anthropology professor before breakfast 1 Active Tiadylt ER 120 mg 24 hr capsule Take 1 capsule (120 mg total) by mouth sociocultural anthropology professor before breakfast 1 Active acetaminophen (TYLENOL) 500 [...] EVERY DAY 90 tablet 1 5 Active HYDROcodone-aceta minophen (NORCO) 5-325 mg per tabletIndications :Pain Take 1 tablet by mouth every 6 (six) hours as needed for pain for up to 5 doses 5 tablet 5 Active lidocaine (LIDODERM) 5 % Apply 1 patch topically daily for 12 hours Remove after 12 hours (need 12 hour patch free period). 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 [...] 05/17/2022 Assessment & Plan (01/04/2024 2:57 PM COMMUNICATION MANAGER): Cont statin Assessment & Plan (05/17/2022 8:58 AM CDT): -continue statin GERD (gastroesophageal reflux disease) 2 Assessment & Plan (05/17/2022 8:58 AM CDT): -cont PPI (HFpEF) heart failure with preserved ejection fr action 03/28/2021 Assessment & Plan (01/05/2024 2:27 PM COMMUNICATION MANAGER): TTE with EF 64% and grade 1 diastolic dysfunction. Appears euvolemic. Not in exacerbation -Not on diuretics at home -Strict I&Os, daily weights Loneliness 03/28/2021 Valvular heart disease 02/13/2021 Paroxysmal atrial fibrillation 01/29/2021 Chronic anticoagulation 01/29/2021 Essential hypertension 01/29/2021 Assessment & Plan (01/04/2024 2:55 PM COMMUNICATION MANAGER): Cont irbesartan and propranolol Localized swelling of both lower legs 01/29/2021 JOHNSON (dyspnea on exertion) 01/29/2021 Elevated LFTs 01/29/2021 Elevated TSH 01/29/2021 Anemia, unspecified 01/29/2021 Assessment & Plan (01/05/2024 2:27 PM COMMUNICATION MANAGER): Baseline Hgb 11s, likely AOCD; no signs of bleeding -Small drop in post procedure Hgb, exam reassuring. No hematoma Excessive daytime sleepiness 01/29/2021 CKD (chronic kidney disease) 01/29/2021 Assessment & Plan (01/05/2024 2:30 PM COMMUNICATION MANAGER): Cr baseline 1-1.1. Stable Resolved Problems Problem Noted Date Diagnosed Date Resolved Date Atrial fibrillation 05/16/2022 09/15/20 23 Persistent atrial fibrillation 04/08/2022 06/11/2022 Assessment & Plan (05/17/2022 8:58 AM CDT): -s/p afib ablation yesterday -patient currently in NSR / sinus arrhythmia -cont Eliquis, dilt, propranolol -f/u EP Encounters Date Type Department Care Team Description 06/19/2025 2:36 PM CDT - 06/19/2025 8:45 PM CDT Emergency [facility] Emergency Department [address] [place] [address] Alvino Acosta MD Lumbar back pain (Primary Dx); Leg pain, diffuse, right Discharge Disposition: Discharge to home or self care 05/22/2025 11:00 AM CDT Office Visit [facility] [address] [place] [address] Natanael Concepcion MD Paroxysmal atrial fibrillation (HCC) (Primary Dx); Valvular heart disease 05/18/2025 11:30 AM CDT Office Visit [facility] Cardiology [address] [place] [address] [place] [address] Gilson Velazquez MD S/P radiofrequency ablation operation for arrhythmia (Primary Dx); Paroxysmal atrial fibrillation (HCC); Atypical atrial flutter (HCC); snf current use of anticoagulant therapy 05/18/2025 Results Follow-Up [facility] Cardiology [address] [facility] Medical Office [address] [place] [address] Gilson Velazquez MD ECG 12 lead from Last 3 Months Immunizations Immunization Administration Dates Next Due Moderna SARS-CoV-2 Monovalent Vaccination (12+ Y RS) 01/01/2021 Surgical History Surgery Date Site/Laterality Comments ABLATION 2021 atrial fibrillation CARDIOVERSION 2020, 2022 Medical History Medical History Date Comments Hypertension Heart valve disease Hyperlipidemia CKD (chronic kidney disease) stage 3, GFR 30-59 ml/min (HCC) Eye problem Blood vessel bur st in [...] making you feel afraid or unsafe? Denies 06/19/2025 Comments No Sex and Gender Information Value Date Recorded Sex Assigned at Not on file Legal Sex Female 2:54 AM COMMUNICATION MANAGER Gender Identity Not on file Sexual Orientation Not on file Obstetrics History Last Filed Vital Signs Vital Sign Reading Time Taken Comments Blood Pressure 147/62 06/19/2025 3:53 PM CDT Pulse 68 06/19/2025 3:53 PM CDT Temperature 36.7 C (98.1 F) 06/19/2025 11:51 AM CDT Respiratory Rate 18 06/19/2025 3:53 PM CDT Oxygen Saturation 98% 06/19/2025 3:53 PM CDT Inhaled Oxygen Concentration - - Weight 59 kg (130 lb 1.1 oz) 06/19/2025 11:51 AM CDT Height 157.5 cm (5' 2.01) 06/19/2025 11:51 AM C DT Body Mass Index 23.78 06/19/2025 11:51 AM CDT Plan of Treatment Health Maintenance [...] Fall Risk Assessment 01/05/2025 01/05/2024 Influenza Vaccine (#1) 2025 , 07/29/2020, 07/25/2019, Additional history exists Medical Devices Implanted Type Area Ultrasonic Cleaner Device Identifier Shelf Expiration Date Model / Serial / Lot Vascade Mvp 6-12fr Venous Closure [id number] - [id number] Implanted:Qty : 1 on 05/16/2022 by Gilson Velazquez MD at [facility] Collagen Left: Groin [employer] 11/29/2025 800-612C- 10U / / [id number] Vascade Mvp 6-12fr Venous Closure [id number] - [id number] Implanted:Qty : 1 on 05/16/2022 by Gilson Velazquez MD at [facility] Collagen Right: Groin [employer] 11/29/2025 800-612C- 10U / / [id number] Vascade Mvp 6-12fr Venous Closure [id number] - [id number] Implanted:Qty : 1 on 05/16/2022 by Gilson Velazquez MD at [facility] Collagen Right: Groin [employer] 11/29/2025 800-612C- 10U / / [id number] [employer] Vascade Mvp 6-12fr Venous Closure [id number] - [id number] Implanted:Qty : 1 on 01/04/2024 by Gilson Velazquez MD at [facility] Other - see comments [employer] 09/21/2025 800-612C- 10U / / [id number] 30C Description:Vascade closure device [employer] Vascade Mvp 6-12fr Venous Closure [id number] - [id number] Implanted:Qty : 1 on 01/04/2024 by Gilson Velazquez MD at [facility] Other - see comments [employer] 08/18/2025 800-612C- 10U / / [id number] 18C Description:Vascade closure device [employer] Vascade Mvp 6-12fr Venous Closure [id number] - [id number] Implanted:Qty : 1 on 01/04/2024 by Gilson Velazquez MD at [facility] Other - see comments [employer] 09/21/2025 800-612C- 10U / / [id number] 30C Description:Vascade closure device Procedures Procedure Name Priority Date/Time Associated Diagnosis Comments CT PELVIS WO CONTRAST ED 06/19/2025 4:[address] LUMBAR SPINE WO CONTRAST ED 06/19/2025 4:22 PM CDT ECG 12-LEAD Routine 05/18/2025 11:39 AM CDT Paroxysmal atrial fibrillation (HCC) from Last 3 Months Results * CT Pelvis WO Contrast (06/19/2025 4:22 PM CDT) Anatomical Region Laterality Modality Body N/A Computed Tomogra phy 06/19/2025 4:41 PM CDT Impressions 06/19/2025 4:41 PM CDT 1. No acute displaced fracture of the pelvis in the setting of diffuse bone demineralization. Electronically signed by: Meghan Trotter MD Narrative 06/19/2025 4:41 PM CDT EXAMINATION: CT PELVIS WO CONTRAST HISTORY: Right hip and leg pain COMPARISON: None available TECHNIQUE: Computed tomographic images of the pelvis were obtained without contrast. FINDINGS: Diffuse bone demineralization is noted. 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 Symphysis pubis arthrosis is noted. No acute displaced fracture. Muscle bulk is symmetric. No focal fluid collection. Vascular calcifications are noted. Limited survey of the visceral pelvis demonstrates no acute abnormality. No lymphadenopathy. Procedure Note Jihan Trotter MD - 06/19/2025 EXAMINATION: CT PELVIS WO CONTRAST HISTORY: Right hip and leg pain COMPARISON: None available TECHNIQUE: Computed tomographic images of the pelvis were obtained without contrast. FINDINGS: Diffuse bone demineralization is noted. 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 Symphysis pubis arthrosis is noted. No acute displaced fracture. Muscle bulk is symmetric. No focal fluid collection. Vascular calcifications are noted. Limited survey of the visceral pelvis demonstrates no acute abnormality. No lymphadenopathy. IMPRESSION: 1. No acute displaced fracture of the pelvis in the setting of diffuse bone demineralization. Electronically signed by: Meghan Trotter MD us Yinka Florence MD IMG CT PROCEDURES Final Re sult * CT Lumbar Spine WO Contrast (06/19/2025 4:22 PM CDT) Anatomical Region Laterality Modality Spine N/A Computed Tomogra phy 06/19/2025 4:59 PM CDT Impressions 06/19/2025 5:13 PM CDT 1. Age-indeterminate, likely chronic, mild compression deformity of the L1 vertebral body. Correlation with point tenderness is recommended. 2. Incidentally noted atherosclerosis at the origin of the left renal artery with moderate atherosclerosis of the abdominal aorta with a mural thrombus. Further evaluation with CTA abdomen pelvis, as clinically indicated. Dictated by: Terra Dan MD, MPH The radiology attending physician has personally reviewed this study, and had reviewed and/or edited this written report and agrees with it. Electronically signed by: Vera Engel M.D. Narrative 06/19/2025 5:13 PM CDT EXAMINATION: CT of the lumbar spine without contrast HISTORY: 89-year-old female with lower back pain, increased fracture TECHNIQUE: CT of the lumbar spine was performed according to the standard protocol without intravenous contrast. COMPARISON: None Available. FINDINGS: Lumbar levoscoliosis and minimal anterolisthesis of L5-S1. There is no acute fracture. There is a age-indeterminate mild compression deformity of the L1 vertebral body. Multilevel degenerative disc disease of the lumbar spine, most prominent at L2-L3, L3-L4 and L4-L5 resulting in severe multilevel neural foraminal narrowing and moderate to severe spinal canal narrowing. Atherosclerotic calcifications of the abdominal aorta and its branching vessels. No high-grade spinal canal stenosis. Procedure Note Vera Rowland MD - 06/19/2025 EXAMINATION: CT of the lumbar spine without contrast HISTORY: 89-year-old female with lower back pain, increased fracture TECHNIQUE: CT of the lumbar spine was performed according to the standard protocol without intravenous contrast. COMPARISON: None Available. FINDINGS: Lumbar levoscoliosis and minimal anterolisthesis of L5-S1. There is no acute fracture. There is a age-indeterminate mild compression deformity of the L1 vertebral body. Multilevel degenerative disc disease of the lumbar spine, most prominent at L2-L3, L3-L4 and L4-L5 resulting in severe multilevel neural foraminal narrowing and moderate to severe spinal canal narrowing. Atherosclerotic calcifications of the abdominal aorta and its branching vessels. No high-grade spinal canal stenosis. IMPRESSION: 1. Age-indeterminate, likely chronic, mild compression deformity of the L1 vertebral body. Correlation with point tenderness is recommended. 2. Incidentally noted atherosclerosis at the origin of the left renal artery with moderate atherosclerosis of the abdominal aorta with a mural thrombus. Further evaluation with CTA abdomen pelvis, as clinically indicated. Dictated by: Terra Dan MD, MPH The radiology attending physician has personally reviewed this study, and had reviewed and/or edited this written report and agrees with it. Electronically signed by: Vera Engel M.D. us Yinka Florence MD IMG CT PROCEDURES Final Re sult * ECG 12 lead (05/18/2025 11:39 AM CDT) us Gilson Velazquez MD ECG ORDERABLES Edited Result - Final from Last 3 Months Insurance [facility] [employer] [facility] ADV[facility]AGE CHOICE PPO [employer] CHO[employer] PPO Advance Directives For more information, please contact: [phone] * Full Code (Latest Code Status on File) Date Activated Date Inactivated Comments 01/04/2024 2:52 PM 01/05/2024 3:30 PM Care Teams Sales Support Engineer Relationship Specialty Start Date End Date Alonzo Cornejo MD [address] [facility] [address] [place] [address] PCP - General 05/23/13
--- OUTSIDE RECORDS SUMMARY | 2025-06-26 12:00 | XMS_ITS | Referral Summary ---
Author Organization [facility] [place] [address] [facility] [address] Address [address] [place] [address] Care Team Providers Care Pre K Lead Teacher Name Role Phone Alonzo Conrejo MD Primary Care Provider Encounters Date Type Department Care Team Description 06/19/2025 2:36 PM CDT - 06/19/2025 8:45 PM CDT Emergency [facility] Emergency Department [address] [place] [id number] Alvino Acosta MD Lumbar back pain (Primary Dx); Leg pain, diffuse, right Discharge Disposition: Discharge to home or self care 05/22/2025 11:00 AM CDT Office Visit [facility] Cardiology [address] [place] [address] Natanael Concepcion MD Paroxysmal atrial fibrillation (HCC) (Primary Dx); Valvular heart disease 05/18/2025 Results Follow-Up [facility] Cardiology [address] [facility] Medical Office Building [address] [place] [address] Gilson Velazquez MD ECG 12 lead 05/18/2025 11:30 AM CDT Office Visit [facility] Cardiology 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 therapy from Last 3 Months Allergies No known active allergies Medications propranoloL (INDERAL) 80 mg tablet Take 1 tablet (80 mg total) by mouth every 12 (twelve) hours 1 Active omeprazole (PriLOSEC) 40 mg capsuleIndication s:Stress Ulcer Prophylaxis Take 1 capsule (40 mg total) by mouth precision lens centerer and edger before breakfast 1 Active Tiadylt ER 120 mg 24 hr capsule Take 1 capsule (120 mg total) by mouth precision lens centerer and edger before breakfast 1 Active acetaminophen (TYLENOL) 500 [...] Date Diagnosed Date Atypical atrial flutter 05/18/2025 [facility] current use of anticoagulant therapy 0 05/18/2025 Chronic fatigue 12/29/2023 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 [...] 05/17/2022 Assessment & Plan (01/04/2024 2:57 PM PAPER COATING MACHINE OPERATOR): Cont statin Assessment & Plan (05/17/2022 8:58 AM CDT): -continue statin GERD (gastroesophageal reflux disease) Assessment & Plan (05/17/2022 8:58 AM CDT): -cont PPI (HFpEF) heart failure with preserved ejection fr action 03/28/2021 Assessment & Plan (01/05/2024 2:27 PM PAPER COATING MACHINE OPERATOR): TTE with EF 64% and grade 1 diastolic dysfunction. Appears euvolemic. Not in exacerbation -Not on diuretics at home -Strict I&Os, daily weights Loneliness 03/28/2021 Valvular heart disease 02/13/2021 Paroxysmal atrial fibrillation 01/29/2021 Chronic anticoagulation 01/29/2021 Essential hypertension 01/29/2021 Assessment & Plan (01/04/2024 2:55 PM PAPER COATING MACHINE OPERATOR): Cont irbesartan and propranolol Localized swelling of both lower legs 01/29/2021 JOHNSON (dyspnea on exertion) 01/29/2021 Elevated LFTs 01/29/2021 Elevated TSH 01/29/2021 Anemia, unspecified 01/29/2021 Assessment & Plan (01/05/2024 2:27 PM PAPER COATING MACHINE OPERATOR): Baseline Hgb 11s, likely AOCD; no signs of bleeding -Small drop in post procedure Hgb, exam reassuring. No hematoma Excessive daytime sleepiness 01/29/2021 CKD (chronic kidney disease) 01/29/2021 Assessment & Plan (01/05/2024 2:30 PM PAPER COATING MACHINE OPERATOR): Cr baseline 1-1.1. 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 Gender Identity Not on file Sexual Orientation [...] 06/19/2025 11:51 AM CDT Plan of Treatment Not on file Medical Devices Implanted Type Area Planer Setter Device Identifier Shelf Expiration Date Model / Serial / Lot Vascade Mvp 6-12fr Venous Closure [id number] - [id number] Implanted:Qty : 1 on 05/16/2022 by Gilson Velazquez MD at [facility] Collagen Left: Groin [employer] 11/29/2025 800-612C- 10U / / [id number] Vascade Mvp 6-12fr Venous Closure [id number] - [id number] Implanted:Qty : 1 on 05/16/2022 by Gilson Velazquez MD at [facility] Collagen Right: Groin [employer] 11/29/2025 800-612C- 10U / / [id number] Vascade Mvp 6-12fr Venous Closure [id number] - [id number] Implanted:Qty : 1 on 05/16/2022 by Gilson Velazquez MD at [facility] Collagen Right: Groin [employer] 11/29/2025 800-612C- 10U / / [id number] [employer] Vascade Mvp 6-12fr Venous Closure [id number] - [id number] Implanted:Qty : 1 on 01/04/2024 by Gilson Velazquez MD at [facility] Other - see comments [employer] 09/21/2025 800-612C- 10U / / [id number] 30C Description:Vascade closure device [employer] Vascade Mvp 6-12fr Venous Closure [id number] - [id number] Implanted:Qty : 1 on 01/04/2024 by Gilson Velazquez MD at [facility] Other - see comments [employer] 08/18/2025 800-612C- 10U / / [id number] 18C Description:Vascade closure device [employer] Vascade Mvp 6-12fr Venous Closure [id number] - [id number] Implanted:Qty : 1 on 01/04/2024 by Gilson Velazquez MD at [facility] Other - see comments [employer] 09/21/2025 800-612C- 10U / / [id number] 30C Description:Vascade closure device Procedures Procedure Name [...] Meghan Trotter MD us Yinka Florence MD IM CT PROCEDURES Final Re sult * CT [...] - Final from Last 3 Months [facility] [employer] ADVANTAGE CHOICE PPO [employer] ADVANTAGE CHOICE PPO Advance Directives For more information, please contact: [phone] * Full Code (Latest Code Status on File) Date Activated Date Inactivated Comments 01/04/2024 2:52 PM 01/05/2024 3:30 PM Care Teams Pre K Lead Teacher Relationship Specialty Start Date End Date Alonzo Cornejo MD [address] [facility] [address] [place] [address] PCP - General 05/23/13
--- OUTSIDE RECORDS SUMMARY | 2025-06-26 12:00 | XMS_ITS | Encounter Summary ---
Author Organization [facility] Address [address] [place] [address] Phone Care Team Providers Care Digital Marketer Name Role Phone Alonzo Cornejo MD Primary Care Provider Encounter Details Date Type Department Care Team (Late st Contact Info) Description 05/18/2025 Results Follow-Up [facility] Cardiology [address] [facility] Medical Office Building [address] [place] [address] Gilson Velazquez MD [address] [facility] [address] [place] [address] ECG 12 lead Social History Tobacco Use [...] on file 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
[2025-06-26 12:40] VITALS: BP 111/54; PULSE 64; RESP 20; TEMP 36.6; O2SAT 100
--- NOTE | 2025-06-26 14:14 | ED.BACK ---
HPI - Back Pain/Injury General Chief Complaint: Back Pain/Injury <Cora Bonilla APRN - Last Filed: 06/26/25 14:42> Stated Complaint: pain from lower back radiates down legs <Cora Bonilla APRN - Last Filed: 06/26/25 14:42> Time Seen by Provider: 06/26/25 14:15 <Cora Bonilla APRN - Last Filed: 06/26/25 14:42> Focused HPI: Patient is an 89 year old female who presents to the ER with complaints of back pain. She reports she was here 2 weeks ago after pushing a watermelon which lenora her back. Patient was seen here for evaluation. She then went over to [facility] for further evaluation and there were no new findings. Patient endorses ongoing back pain to the lower part of her spine that radiates down her legs. Her daughter reports she is on Eliquis. Patient's daughter also reports that her primary care provider's trying to get pain management on board, but she has not seen them yet. GENERAL: Well-appearing, well-nourished, and in no acute distress. HEAD: Normocephalic, atraumatic. CHEST: Clear to auscultation. ?No respiratory distress. HEART: Regular rate and rhythm.? NEURO: ?Alert and oriented x3. Patient screened in triage and initial orders placed.? ?Additional care and disposition to be based upon?diagnostic testing and treatment. <Cora Bonilla APRN - Last Filed: 06/26/25 14:42> Source: patient and family <Russell Crooks MD - Last Filed: 06/26/25 17:44> Mode of arrival: ambulatory <Russell Crooks MD - Last Filed: 06/26/25 17:44> Limitations: no limitations <Russell Crooks MD - Last Filed: 06/26/25 17:44> History of Present Illness HPI Narrative: 89-year-old with a history of atrial fibrillation on Eliquis, chronic low back pain presents to the ER with a complains of increased pain in her right lower back radiating into her right leg. Patient has been seen here in the ER and early part of May at a CT scan which showed L1 compression fracture which appears to be chronic. Patient stated pain started while she was pushing the watermelon into the Fridge. She has seen a primary doctor was given medication which includes baclofen, gabapentin, tramadol. Daughter in-law and son were at bedside states that they have taken her to [facility] was seen in the ER was prescribed [place] , which helps for short duration ,however last night she was sleep walking , got into her car later realized what she was doing , her family states this morning she had tremendous amount of pain and she was unable to walk ,by the time she got to the ER her pain is better , family wants some answers and she cannot be in this chronic miserable state .she has not been eating well ,she is nauseated from pain,zofran did help with nausea . Pt states she had 3 back injections in the past . <Russell Crooks MD - Last Filed: 06/26/25 17:44> MD elicited complaint: back pain <Russell Crooks MD - Last Filed: 06/26/25 17:44> Pertinent past history: prior back pain <Russell Crooks MD - Last Filed: 06/26/25 17:44> Onset (ago): week(s) (2) <Russell Crooks MD - Last Filed: 06/26/25 17:44> Timing: constant <Russell Crooks MD - Last Filed: 06/26/25 17:44> Severity: moderate <Russell Crooks MD - Last Filed: 06/26/25 17:44> Similar Symptoms Previously: Yes <Russell Crooks MD - Last Filed: 06/26/25 17:44> Quality: aching and throbbing <MD Reshma Driscoll Last Filed: 06/26/25 17:44> Location: lumbar spine <MD Reshma Driscoll Last Filed: 06/26/25 17:44> Radiation: right leg below the knee <MD Reshma Driscoll Last Filed: 06/26/25 17:44> Exacerbating factors: movement <MD Reshma Driscoll Last Filed: 06/26/25 17:44> Relieving factors: none <MD Reshma Driscoll Last Filed: 06/26/25 17:44> Context: turning/twisting <Russell Crooks MD - Last Filed: 06/26/25 17:44> Associated symptoms: denies other symptoms <Russell Crooks MD - Last Filed: 06/26/25 17:44> Treatments prior to arrival: other (see the above note) <Russell Crooks MD - Last Filed: 06/26/25 17:44> Related Data Home Medications: Home Medications ?Medication ?Instructions ?Recorded ?Confirmed ?Last Taken ?Type calcium carbonate 600 mg PO BID 09/23/23 06/14/25 09/24/23 History <Cora Bonilla PROFESSOR OF GENETICS - Last Filed: 06/26/25 14:42> Allergies/Adverse Reactions: Allergies Allergy/AdvReac Type Severity Reaction Status Date / Time No Known Allergies Allergy Verified 06/26/25 12:45 <Cora Bonilla PROFESSOR OF GENETICS - Last Filed: 06/26/25 14:42> Review of Systems Review of Systems: All systems reviewed & are unremarkable except as noted in HPI and below <Russell Crooks MD - Last Filed: 06/26/25 17:44> Constitutional: Constitutional: Reports no additional constitutional complaints <Russell Crooks MD - Last Filed: 06/26/25 17:44> Eyes: Eyes: Reports no additional eye complaints <Russell Crooks MD - Last Filed: 06/26/25 17:44> ENT: Reports system reviewed and no additional complaints, except as documented <Russell Crooks MD - Last Filed: 06/26/25 17:44> Cardiovascular: Cardiovascular: Reports no additional cardiovascular complaints <Russell Crooks MD - Last Filed: 06/26/25 17:44> Respiratory: Respiratory: Reports no additional respiratory complaints <Russell Crooks MD - Last Filed: 06/26/25 17:44> Gastrointestinal: Gastrointestinal: Reports no additional gastrointestinal complaints <Russell Crooks MD - Last Filed: 06/26/25 17:44> Musculoskeletal: Musculoskeletal: Reports as per HPI <Russell Crooks MD - Last Filed: 06/26/25 17:44> Neurologic: Reports system reviewed and no additional complaints, except as documented <Russell Crooks MD - Last Filed: 06/26/25 17:44> [facility] Past Medical History Medical History: Medical History Superior mesenteric artery stenosis asymptomatic, seen on CT Diastolic CHF Paroxysmal A-fib Status post AFib ablation by Dr. Velazquez at [facility] in February 2022. Hyperlipidemia OAB (overactive bladder) CKD (chronic kidney disease), stage III Hypertensive CKD (chronic kidney disease) Raynauds disease <Cora Bonilla APRN - Last Filed: 06/26/25 14:42> Family History Family History: Family History Mother Family history of coronary artery disease <Cora Bonilla APRN - Last Filed: 06/26/25 14:42> Social History Social History: Social History Social History: , lives alone in [place], 2 sons and 1 daughter. Smoking status: Never smoker Second hand tobacco smoke exposure: No Alcohol intake: never Substance use: never Substance use type: does not use Lack of Transportation: No Lack of Food: Never True Current Housing: I Have Housing Concerned About Future Housing: No Difficulty Paying Gas/Electric Bills: No Difficulty Paying for Meds: No Currently Unemployed: YES Education: Decline to Answer Difficulty w/ Childcare or Family Care: No Living arrangements: alone Occupation/Education: retired Gender identity (if verbalized by the patient): Female Sexual Orientation (if Verbalized by the Patient): Straight or Heterosexual Spiritual care concerns: No <Cora Bonilla APRN - Last Filed: 06/26/25 14:42> Exam Narrative: GENERAL: Well-appearing, well-nourished, and in no acute distress. HEAD: Normocephalic, atraumatic. EYES: PERRLA and EOMI. ENT: Nares clear, no rhinorrhea or epistaxis. Mucous membranes moist. NECK: Supple. CHEST: Clear to auscultation. No respiratory distress. HEART: Regular rate and rhythm. No murmur heard. Normal peripheral pulses. ABDOMEN: Soft, nontender, nondistended, normal active bowel sounds. EXTREMITIES: Normal range of motion. No edema. SKIN: Warm, dry, no rash. NEURO: No focal deficits. Alert and oriented x3. PSYCH: Normal mood and affect. <Russell Crooks MD - Last Filed: 06/26/25 17:44> Course Vital Signs Vital signs: Vital Signs Temperature 36.6 C 06/26/25 12:40 Pulse Rate 64 06/26/25 12:40 Respiratory Rate 20 06/26/25 12:40 Blood Pressure 111/54 L 06/26/25 12:40 Pulse Oximetry 100 06/26/25 12:40 Oxygen Delivery Room Air 06/26/25 12:40 Temperature 36.6 C 06/26/25 12:40 Pulse Rate 61 06/26/25 16:12 Respiratory Rate 14 06/26/25 16:12 Blood Pressure 109/55 L 06/26/25 16:12 Pulse Oximetry 99 06/26/25 16:12 Oxygen Delivery Room Air 06/26/25 12:40 <Cora Bonilla APRN - Last Filed: 06/26/25 14:42> Vital Signs Temperature 36.6 C 06/26/25 12:40 Pulse Rate 64 06/26/25 12:40 Respiratory Rate 20 06/26/25 12:40 Blood Pressure 111/54 L 06/26/25 12:40 Pulse Oximetry 100 06/26/25 12:40 Oxygen Delivery Room Air 06/26/25 12:40 Temperature 36.6 C 06/26/25 12:40 Pulse Rate 61 06/26/25 16:12 Respiratory Rate 14 06/26/25 16:12 Blood Pressure 109/55 L 06/26/25 16:12 Pulse Oximetry 99 06/26/25 16:12 Oxygen Delivery Room Air 06/26/25 12:40 <Russell Crooks MD - Last Filed: 06/26/25 17:44> MDM - Back Pain/Injury Differential Diagnosis Differential diagnosis: Likely lumbar radiculopathy <Russell Crooks MD - Last Filed: 06/26/25 17:44> Medical Records Attestation: I reviewed the patient's medical records. <Russell Crooks MD - Last Filed: 06/26/25 17:44> Lab Data Attestation: I reviewed the patient's lab results. <Russell Crooks MD - Last Filed: 06/26/25 17:44> Labs: Lab Results 06/26/25 Range/Units 14:43 Urine Color Dark yellow (Yellow) Urine Appearance Clear (Clear) Urine pH 5.5 (5.0-9.0) Ur Specific [place] 1.019 (1.001-1.035) Urine Protein Trace (Negative) mg/dL Urine Glucose (UA) Negative (Negative) mg/dL Urine Ketones Trace H (Negative) mg/dL Ur Blood (Man) Negative (Negative) Urine Nitrate Negative (Negative) Urine Bilirubin 1+ H (Negative) Urine Urobilinogen 1.0 (<2.0) mg/dL Add Ur Microanalysis Reviewed Leukocyte Esterase Rfl 1+ H (Negative) SCARLET/UL Urine RBC 3-5 H (0-2) /hpf Urine WBC 0-5 (0-3) /hpf Ur Squamous Epith Cells Occasional (Few) /hpf Urine Bacteria None seen /hpf Urine Casts 6-10 <Cora Bonilla APRN - Last Filed: 06/26/25 14:42> Lab Results 06/26/25 Range/Units 14:43 Urine Color Dark yellow (Yellow) Urine Appearance Clear (Clear) Urine pH 5.5 (5.0-9.0) Ur Specific [place] 1.019 (1.001-1.035) Urine Protein Trace (Negative) mg/dL Urine Glucose (UA) Negative (Negative) mg/dL Urine Ketones Trace H (Negative) mg/dL Ur Blood (Man) Negative (Negative) Urine Nitrate Negative (Negative) Urine Bilirubin 1+ H (Negative) Urine Urobilinogen 1.0 (<2.0) mg/dL Add Ur Microanalysis Reviewed Leukocyte Esterase Rfl 1+ H (Negative) SCARLET/UL Urine RBC 3-5 H (0-2) /hpf Urine WBC 0-5 (0-3) /hpf Ur Squamous Epith Cells Occasional (Few) /hpf Urine Bacteria None seen /hpf Urine Casts 6-10 <Russell Crooks MD - Last Filed: 06/26/25 17:44> Imaging Data Radiologist's impression: ITS Impressions Lumbar Spine X-Ray 06/26/25 15:26 IMPRESSION: 1. 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 <Russell Crooks MD - Last Filed: 06/26/25 17:44> Discharge Plan Discharge Clinical Impression: Lumbar radiculopathy <Cora Bonilla APRN - Last Filed: 06/26/25 14:42> Patient Disposition: Still a Patient <Cora Bonilla APRN - Last Filed: 06/26/25 14:42> Condition: Stable <Coar Bonilla APRN - Last Filed: 06/26/25 14:42> Patient Language: Welsh <Cora Bonilla APRN - Last Filed: 06/26/25 14:42> Prescriptions: No Action atorvastatin 20 mg tablet 20 mg PO DAILY Qty: 30 2RF cyclobenzaprine 5 mg tablet 5 mg PO TID PRN (Reason: muscle spasm) Qty: 30 0RF gabapentin 100 mg capsule 100 mg PO BID PRN (Reason: nerve pain) Qty: 60 0RF calcium carbonate 600 mg calcium (1,500 mg) Tablet 600 mg PO BID diltiazem HCl [Tiadylt ER] 120 mg capsule,extended release 24hr See Rx Instructions .ROUTE .COMPLEX Qty: 90 2RF Dose Instruction: 120 MG ORALLY DAILY Rx Instructions: 120 MG ORALLY DAILY omeprazole 40 mg capsule,delayed release(DR/EC) 40 mg PO DAILY Qty: 90 2RF irbesartan 150 mg tablet See Rx Instructions .ROUTE .COMPLEX Qty: 90 4RF Dose Instruction: TAKE 1 TABLET BY MOUTH EVERY DAY Rx Instructions: TAKE 1 TABLET BY MOUTH EVERY DAY triamcinolone acetonide 0.5 % ointment 1 applic topical BID Qty: 15 0RF Rx Instructions: Apply twice daily until rash resolves or for no more than 1 week propranolol 80 mg tablet See Rx Instructions .ROUTE .COMPLEX Qty: 180 2RF Dose Instruction: TAKE 1 TABLET BY MOUTH EVERY 12 HOURS Rx Instructions: TAKE 1 TABLET BY MOUTH EVERY 12 HOURS Eliquis 2.5 mg tablet 2.5 mg PO BID Qty: 60 5RF tramadol 50 mg tablet 50 mg PO BID PRN (Reason: pain) Qty: 20 0RF hydrocodone-acetaminophen 5-325 mg tablet 1 tablet PO Q6H PRN (Reason: severe pain (scale score 7-10)) Qty: 5 0RF <Cora Bonilla APRN - Last Filed: 06/26/25 14:42> Follow-up/Referrals: Alonzo Cornejo MD [Primary Care Provider] - <Cora Bonilla APRN - Last Filed: 06/26/25 14:42> Time of Disposition: 17:43 <Cora Bonilla APRN - Last Filed: 06/26/25 14:42> 17:43 <Russell Crooks MD - Last Filed: 06/26/25 17:44>
--- OUTSIDE RECORDS SUMMARY | 2025-06-26 14:19 | XMS_ITS | Referral Summary ---
Author Organization [facility] [place] [address] [facility] [address] Address [address] [place] [address] Care Team Providers Care Junior Architect Name Role Phone Alonzo Cornejo MD Primary Care Provider Encounters Date Type Department Care Team Description 06/19/2025 2:36 PM CDT - 06/19/2025 8:45 PM CDT Emergency [facility] [address] [place] [id number] Alvino Acosta MD Lumbar back pain (Primary Dx); Leg pain, diffuse, right Discharge Disposition: Discharge to home or self care 05/22/2025 11:00 AM CDT Office Visit [facility]iology [address] [place] [address] Natanael Concepcion MD Paroxysmal atrial fibrillation (HCC) (Primary Dx); Valvular heart disease 05/18/2025 Results Follow-Up [facility] Cardiology [address] [facility] Medical Office Building [address] [place] [address] Gilson Velazquez MD ECG 12 lead 05/18/2025 11:30 AM CDT Office Visit [facility] Cardiology [facility] 8th [place] [address] [place] [address] Gilson Velazquez MD S/P radiofrequency ablation operation for arrhythmia (Primary Dx); Paroxysmal atrial fibrillation (HCC); Atypical atrial flutter (HCC); 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 from Last 3 Months Allergies No known active allergies Medications propranoloL (INDERAL) 80 mg tablet Take 1 tablet (80 mg total) by mouth every 12 (twelve) hours 1 Active omeprazole (PriLOSEC) 40 mg capsuleIndication s:Stress Ulcer Prophylaxis Take 1 capsule (40 mg total) by mouth bucket chucker before breakfast 1 Active Tiadylt ER 120 mg 24 hr capsule Take 1 capsule (120 mg total) by mouth bucket chucker before breakfast 1 Active acetaminophen (TYLENOL) 500 [...] Date Diagnosed Date Atypical atrial flutter 05/18/2025 alf current use of anticoagulant therapy 0 05/18/2025 Chronic fatigue 12/29/2023 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 [...] 05/17/2022 Assessment & Plan (01/04/2024 2:57 PM TURN LASTER): Cont statin Assessment & Plan (05/17/2022 8:58 AM CDT): -continue statin GERD (gastroesophageal reflux disease) Assessment & Plan (05/17/2022 8:58 AM CDT): -cont PPI (HFpEF) heart failure with preserved ejection fr action 03/28/2021 Assessment & Plan (01/05/2024 2:27 PM TURN LASTER): TTE with EF 64% and grade 1 diastolic dysfunction. Appears euvolemic. Not in exacerbation -Not on diuretics at home -Strict I&Os, daily weights Loneliness 03/28/2021 Valvular heart disease 02/13/2021 Paroxysmal atrial fibrillation 01/29/2021 Chronic anticoagulation 01/29/2021 Essential hypertension 01/29/2021 Assessment & Plan (01/04/2024 2:55 PM TURN LASTER): Cont irbesartan and propranolol Localized swelling of both lower legs 01/29/2021 JOHNSON (dyspnea on exertion) 01/29/2021 Elevated LFTs 01/29/2021 Elevated TSH 01/29/2021 Anemia, unspecified 01/29/2021 Assessment & Plan (01/05/2024 2:27 PM TURN LASTER): Baseline Hgb 11s, likely AOCD; no signs of bleeding -Small drop in post procedure Hgb, exam reassuring. No hematoma Excessive daytime sleepiness 01/29/2021 CKD (chronic kidney disease) 01/29/2021 Assessment & Plan (01/05/2024 2:30 PM TURN LASTER): Cr baseline 1-1.1. Stable Resolved Problems Problem [...] on file Legal Sex Female 2:54 AM TURN LASTER Gender Identity Not on file Sexual Orientation [...] on file Medical Devices Implanted Type Area Board Saw Runner Device Identifier Shelf Expiration Date Model / Serial / Lot Vascade Mvp 6-12fr Venous Closure [id number] - [id number] Implanted:Qty : 1 on 05/16/2022 by Gilson Velazquez MD at [facility] Collagen Left: Groin [employer] 11/29/2025 800-612C- 10U / / [id number] Vascade Mvp 6-12fr Venous Closure [id number] - [id number] Implanted:Qty : 1 on 05/16/2022 by Gilson Velazquez MD at [facility] Collagen Right: Groin [employer] 11/29/2025 800-612C- 10U / / [id number] 14 Vascade Mvp 6-12fr Venous Closure [id number] - [id number] Implanted:Qty : 1 on 05/16/2022 by Gilson Velazquez MD at [facility] Collagen Right: Groin [employer] 11/29/2025 800-612C- 10U / / [id number] [employer] Vascade Mvp 6-12fr Venous Closure [id number] - [id number] Implanted:Qty : 1 on 01/04/2024 by Gilson Velazquez MD at [facility] Other - see comments [employer] 09/21/2025 800-612C- 10U / / [id number] 30C Description:Vascade closure device [employer] Vascade Mvp 6-12fr Venous Closure [id number] - [id number] Implanted:Qty : 1 on 01/04/2024 by Gilson Velazquez MD at [facility] Other - see comments [employer] 08/18/2025 800-612C- 10U / / [id number] 18C Description:Vascade closure device [employer] Vascade Mvp 6-12fr Venous Closure [id number] - [id number] Implanted:Qty : 1 on 01/04/2024 by Gilson Velazquez MD at [facility] Other - see comments [employer] 09/21/2025 800-612C- 10U / / [id number] 30C Description:Vascade closure device Procedures Procedure Name [...] high-grade spinal canal stenosis. Procedure Note Vera oRwland MD - 06/19/2025 EXAMINATION: CT of the [...] and agrees with it. Electronically signed by: Vrea Engel M.D. us Yinka Florence MD IMG CT PROCEDURES Final Re sult * ECG 12 lead (05/18/2025 11:39 AM CDT) us Gilson Velazquez MD ECG ORDERABLES Edited Result - Final from Last 3 Months Insurance [facility] [employer] ADVANTAGE CHOICE PPO [employer] ADVANTAGE CHOICE PPO Advance Directives For more information, please contact: [phone] * Full Code (Latest Code Status on File) Date Activated Date Inactivated Comments 01/04/2024 2:52 PM 01/05/2024 3:30 PM Care Teams Junior Architect Relationship Specialty Start Date End Date Alonzo Cornejo MD [address] [facility] [address] [place] [address] PCP - General 05/23/13
--- OUTSIDE RECORDS SUMMARY | 2025-06-26 14:19 | XMS_ITS | Encounter Summary ---
Author Organization [facility] Address [address] [place] [address] Phone Care Team Providers Care Engraver Tire Mold Name Role Phone Alonzo Cornejo MD Primary Care Provider Encounter Details Date Type Department Care Team (Late st Contact Info) Description 05/18/2025 Results Follow-Up [facility] Cardiology [address] [facility] Medical Office Building [address] [place] [address] Gilson Velazquez MD [address] [facility] [address] [place] [address] ECG 12 lead Social History [...] on file Legal Sex Female 2:54 AM HISTORIC SITE ADMINISTRATOR Gender Identity Not on file Sexual Orientation Not on file documented as of this encounter Plan of Treatment Not on file documented as of this encounter Visit Diagnoses Not on filedocumented in this encounter Care Teams Engraver Tire Mold Relationship Specialty Start Date End Date Alonzo Cornejo MD [address] [facility] [address] [place] [address] PCP - General 05/23/13 documented as of this encounter
--- OUTSIDE RECORDS SUMMARY | 2025-06-26 14:19 | XMS_ITS | Clinical Summary ---
Author Organization [facility] [address] Address [address] [place] [address] Care Team Providers Care Limerock Tower Loader Name Role Phone Alonzo Cornejo MD Primary Care Provider Allergies No known active allergies Medications propranoloL (INDERAL) 80 mg tablet Take 1 tablet (80 mg total) by mouth every 12 (twelve) hours 1 Active omeprazole (PriLOSEC) 40 mg capsuleIndication s:Stress Ulcer Prophylaxis Take 1 capsule (40 mg total) by mouth jewel stringer before breakfast 1 Active Tiadylt ER 120 mg 24 hr capsule Take 1 capsule (120 mg total) by mouth jewel stringer before breakfast 1 Active acetaminophen (TYLENOL) 500 [...] Date Diagnosed Date Atypical atrial flutter 05/18/2025 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 [...] 05/17/2022 Assessment & Plan (01/04/2024 2:57 PM CHEESE PRODUCTION SUPERVISOR): Cont statin Assessment & Plan (05/17/2022 8:58 AM CDT): -continue statin GERD (gastroesophageal reflux disease) 2 Assessment & Plan (05/17/2022 8:58 AM CDT): -cont PPI (HFpEF) heart failure with preserved ejection fr action 03/28/2021 Assessment & Plan (01/05/2024 2:27 PM CHEESE PRODUCTION SUPERVISOR): TTE with EF 64% and grade 1 diastolic dysfunction. Appears euvolemic. Not in exacerbation -Not on diuretics at home -Strict I&Os, daily weights Loneliness 03/28/2021 Valvular heart disease 02/13/2021 Paroxysmal atrial fibrillation 01/29/2021 Chronic anticoagulation 01/29/2021 Essential hypertension 01/29/2021 Assessment & Plan (01/04/2024 2:55 PM CHEESE PRODUCTION SUPERVISOR): Cont irbesartan and propranolol Localized swelling of both lower legs 01/29/2021 JOHNSON (dyspnea on exertion) 01/29/2021 Elevated LFTs 01/29/2021 Elevated TSH 01/29/2021 Anemia, unspecified 01/29/2021 Assessment & Plan (01/05/2024 2:27 PM CHEESE PRODUCTION SUPERVISOR): Baseline Hgb 11s, likely AOCD; no signs of bleeding -Small drop in post procedure Hgb, exam reassuring. No hematoma Excessive daytime sleepiness 01/29/2021 CKD (chronic kidney disease) 01/29/2021 Assessment & Plan (01/05/2024 2:30 PM CHEESE PRODUCTION SUPERVISOR): Cr baseline 1-1.1. Stable Resolved Problems Problem [...] CDT - 06/19/2025 8:45 PM CDT Emergency [facility] Emergency Department [address] [place] [address] Alvino Acosta MD Lumbar back pain (Primary Dx); Leg pain, diffuse, right Discharge Disposition: Discharge to home or self care 05/22/2025 11:00 AM CDT Office Visit [facility] Cardiology [address] [place] [address] Natanael Concepcion MD Paroxysmal atrial fibrillation (HCC) (Primary Dx); Valvular heart disease 05/18/2025 11:30 AM CDT Office Visit [facility] Cardiology [address] [facility] 8th [place] [address] [place] [address] Gilson Velazquez MD S/P radiofrequency ablation operation for arrhythmia (Primary Dx); Paroxysmal atrial fibrillation (HCC); Atypical atrial flutter (HCC); prison current use of anticoagulant therapy 05/18/2025 Results Follow-Up [facility] Cardiology [address] [facility] Medical Office Building [address] [place] [address] Gilson Velazquez MD ECG 12 [...] on file Legal Sex Female 2:54 AM CHEESE PRODUCTION SUPERVISOR Gender Identity Not on file Sexual Orientation [...] history exists Medical Devices Implanted Type Area Learning And Development Intern Device Identifier Shelf Expiration Date Model / Serial / Lot Vascade Mvp 6-12fr Venous Closure [id number] - [id number] Implanted:Qty : 1 on 05/16/2022 by Gilson Velazquez MD at [facility] Collagen Left: Groin [employer] 11/29/2025 800-612C- 10U / / [id number] Vascade Mvp 6-12fr Venous Closure [id number] - [id number] Implanted:Qty : 1 on 05/16/2022 by Gilson Velazquez MD at [facility] Collagen Right: Groin [employer] 11/29/2025 800-612C- 10U / / [id number] Vascade Mvp 6-12fr Venous Closure [id number] - [id number] Implanted:Qty : 1 on 05/16/2022 by Gilson Velazquez MD at [facility] Collagen Right: Groin [employer] 11/29/2025 800-612C- 10U / / [id number] [employer] Vascade Mvp 6-12fr Venous Closure [id number] - [id number] Implanted:Qty : 1 on 01/04/2024 by Gilson Velazquez MD at [facility] Other - see comments [employer] 09/21/2025 800-612C- 10U / / [id number] 30C Description:Vascade closure device [employer] Vascade Mvp 6-12fr Venous Closure [id number] - [id number] Implanted:Qty : 1 on 01/04/2024 by Gilson Velazquez MD at [facility] Other - see comments [employer] 08/18/2025 800-612C- 10U / / [id number] 18C Description:Vascade closure device [employer] Vascade Mvp 6-12fr Venous Closure [id number] - [id number] Implanted:Qty : 1 on 01/04/2024 by Gilson Velazquez MD at [facility] Other - see comments [employer] 09/21/2025 800-612C- 10U / / [id number] 30C Description:Vascade closure device Procedures Procedure Name [...] - Final from Last [address] [facility] [employer] [facility] ADVANTAGE CHOICE PPO [employer] ADVANTAGE CHOICE PPO Advance Directives For more information, please contact: [phone] * Full Code (Latest Code Status on File) Date Activated Date Inactivated Comments 01/04/2024 2:52 PM 01/05/2024 3:30 PM Care Teams Limerock Tower Loader Relationship Specialty Start Date End Date Alonzo Cornejo MD [address] [facility] [address] [place] [address] PCP - General 05/23/13
--- OUTSIDE RECORDS SUMMARY | 2025-06-26 14:19 | XMS_ITS | Clinical Summary ---
Author Organization [facility] Address [address] [place] [address] Care Team Providers Care Sports Bookmaker Name Role Phone Unavailable Primary Care Provider [...] 5 season) 2024 02/01/2021, 01/01/2021 PHQ-2 (Physician [place]) 11/30/2024 Meningococcal B Vaccine Aged Out No l onger eligible based on patient's age to complete this topic Meningococcal Vaccine Aged Out No lisseth shana eligible based on patient's age to complete this topic RSV Immunizations Under 20 Months Aged Out No longer eligible b ased on patient's age to complete this topic Insurance [employer]
--- OUTSIDE RECORDS SUMMARY | 2025-06-26 14:19 | XMS_ITS | Encounter Summary ---
Author Organization [facility] Address [address] [place] [address] Care Team Providers Care Technology Solutions Architect Name Role Phone Alonzo Cornejo MD Primary Care Provider [phone] Encounter Details Date Type Department Care Team (Late st Contact Info) Description 06/12/2021 Lab Requisition [facility] [address] [facility] [place] [id number] Alfa Bell MD [address] [place] [address] Social History Tobacco Use Types [...] AM CDT) Case Report Dermatopathology Report Case: [id number] Authorizing Provider: Alfa Bell MD Collected: 06/11/2021 12:00 AM Ordering Location: [facility] Received: 06/12/2021 12:56 PM Pathologist: [...] specimen consists of a shave biopsy measuring 7x2n1am. Jar 0. 1 1:20 PM CDT DERMATOPATHOLOGY [...] characteristic determined by the Dermatopathology Laboratory at [facility], directed by Dr. Meghan Esquivel. These tests need not be, and therefore are not, approved by the [place] Food and Drug Administration. The tests are used for clinical purposes. Billing Codes Specimen Charges Stain Charges 76559 1 1 1:20 PM CDT DERMATOPATHOLOGY LABORATORY Embedded Images 1 1:20 PM CDT DERMATOPATHOLOGY LABORATORY Pathology/Cytolog y TISSUE SPECIMEN FROM SKIN / Unknown 06/11/2021 06/12/2021 12:56 PM CDT Alfa Bell MD LAB - PATHOLOGY/CYTOLOGY ORD ERABLES Final Result DERMATOPATHOLOGY LABORATORY [facility] - Department of Dermatology [facility] [address] [place] [address], [address]rd [address] [phone] documented in this encounter Visit Diagnoses Not on filedocumented in this encounter Care Teams Technology Solutions Architect Relationship Specialty Start Date End Date Alonzo Cornejo MD [address] [place] [address] PCP - General 06/12/21 documented as of this encounter
--- OUTSIDE RECORDS SUMMARY | 2025-06-26 14:19 | XMS_ITS | Clinical Summary ---
Author Organization [facility] Address [address] [place] [address] Care Team Providers Care Analyst Market Intelligence Name Role Phone Alonzo Cornejo MD Primary Care Provider [phone] Source Comments [facility],non-owned Affiliates and Associated Physician Practices is amultiple site organization consisting of ambulatory clinics and hospital sitesin [place], [place], [place] and [place]. This disclosure is being madepursuant to the Care Everywhere program and may not contain all information available regarding this patient. Last updated 18.[facility] Social History Tobacco Use Types Packs/Day Years [...] topic Insurance MEDICARE MEDICARE MEDICARE Care Teams Analyst Market Intelligence Relationship Specialty Start Date End Date Alonzo Cornejo MD [address] [place] [address] PCP - General 06/12/21
[2025-06-26 15:22] LABS: Add Urine Microscopic? YES; Appearance Urine Clear (Clear); Glucose Urine UA Negative (Negative); Leukocyte Esterase Ur 1+ LEU/UL (Negative); Need Manual Microscopic Reviewed; Nitrate Urine Negative (Negative); Specific Grav Ur 1.019 (1.001-1.035)
[2025-06-26 16:12] VITALS: BP 109/55; PULSE 61; RESP 14; O2SAT 99
[2025-06-26 17:56] LABS: Hematocrit 31.5 % (37.0-47.0); Hemoglobin 10.5 g/dL (12.0-15.0); Immature Granulocyte Percent A 0.4 % (0-0.5); Lymphocytes Absolute Auto 1.94 K/mm3 (0.9-3.2); Mean Corpuscular HGB Conc 33.3 g/dl (32-36); Mean Corpuscular Hemoglobin 34.2 pg (26-34); Mean Corpuscular Volume 102.6 fl (80-100); Nucleated Red Blood Cells Absolute Auto 0.000 K/mm3 (0.0-0.012); Nucleated Red Blood Cells Perc 0.0 % (0.0-0.2); Platelet Count Result 170 k/mm3 (150-375); Red Blood Count 3.07 M/mm3 (4.2-5.4); White Blood Count 8.4 K/mm3 (4.5-10.0)
[2025-06-26] MEDS: HYDROcodone/acetaminophen (*CRX) 5-325 MG TABLET 1 TAB PO (18:02)
[2025-06-26] MEDS: dexAMETHasone SOD PHOS INJ 10 MG/ML 1 ML VIAL IV PUSH (18:03)
[2025-06-26] MEDS: APIXABAN 2.5 MG TABLET PO (18:04)
[2025-06-26 18:16] LABS: Alanine Aminotransferase 13 U/L (6-35); Albumin Level 3.6 g/dL (3.5-5.1); Alkaline Phosphatase 120 U/L (38-126); Anion Gap 9 mmol/L (4-12); Aspartate Amino Transferase 27 U/L (14-36); Bilirubin,Total 1.2 mg/dL (0.2-1.3); Blood Urea Nitrogen 19 mg/dL (7-17); CRP 2.6 mg/dL (<1.0); Calcium 9.1 mg/dL (8.4-10.2); Carbon Dioxide 25 mmol/L (22-30); Chloride 95 mmol/L (98-107); Estimated CRCL calculation 22 ml/min; Estimated Glomerular Filt Rate 39; Glucose 92 mg/dL (65-110); Potassium 4.4 mmol/L (3.4-5.0); Sodium 129 mmol/L (137-145); Total Protein 7.0 g/dL (6.3-8.2)
[2025-06-26 18:34] VITALS: BP 136/77; PULSE 65; RESP 14; O2SAT 100
[2025-06-26 19:08] VITALS: BP 138/72; PULSE 64; RESP 18; O2SAT 98
[2025-06-26 20:01] VITALS: BMI 22.2
[2025-06-26 20:13] VITALS: BP 139/90; PULSE 69; RESP 14; O2SAT 98
--- NOTE | 2025-06-26 20:23 | ADMGEN ---
This patient, Luly Luis, was admitted to 2 Medical Room 258-01. Patient/family oriented to hospital policies and general routines including ID bracelet, bed and alarms, visiting hours, pain management, procedures, bathroom and other care routines, personal items, smoking policy, room service/diet, and visiting hours. Information on how to activate the Rapid Response Team has been discussed. Patient/Family are encouraged to report perceived risks to care and to ask questions if they do not understand what they are told or what they should do.
[2025-06-26 20:34] VITALS: BP 174/67; PULSE 63; RESP 18; TEMP 36.5; O2SAT 99
[2025-06-27 04:36] VITALS: BP 166/89; PULSE 83; RESP 20; TEMP 36.4; O2SAT 99
--- NOTE | 2025-06-27 07:08 | PM.IMHP ---
H&P: HPI History of Present Illness Date/Time: 06/27/25 07:08 Chief Complaint: Back pain Narrative: Patient is a 89 yo female with history of atrial fibrillation, HLD, lumbar stenosis, CKD, hypertension who presented to the emergency department with back pain. History is obtained from patient as well as family at bedside as patient is somewhat of a poor historian. Apparently a couple weeks ago patient was picking up heavy watermelon when she thinks she may have injured her back. She describes the pain as sharp pain in the center of her back with radiation to the right paraspinal area and sharp shooting pains down her right leg. She occasionally has difficulty ambulating. Has occasional numbness in her thigh. She was seen in the emergency department here 06/[address] L-spine which showed moderate to advanced degenerative changes and a moderate chronic L1 compression fracture. She was discharged home with tramadol and gabapentin which was controlling her pain of the toe she had a fall to her knees. She was subsequently seen at [facility], had a repeat CT scan which showed no acute findings per family. She was again discharged home and given [place] for breakthrough pain. Since that time, patient describes very vivid dreams and at one point actually slept walk and woke up in her car. She returned to the ER with continued pain and concerns for side effects with her current pain regimen. She also admits to nausea and decreased intake that she thinks could be due to her pain or medications. She denies chest pain, vomiting, diarrhea. XR L-spine in the ED showed 25 degree lumbar dextroscoliosis and severe spondylosis. Admit Hgb 10.5, sodium 129, BUN 19, creatinine 1.30. UA with trace ketones, 1+ LE. Review of Systems Review of Systems: All systems reviewed & are unremarkable except as noted in HPI and below PMFSH Past Medical History Medical History (Updated 06/27/25 @ 12:56 by ROMEO Allison) Superior mesenteric artery stenosis asymptomatic, seen on CT Diastolic CHF Paroxysmal A-fib Status post AFib ablation by Dr. Velazquez at [facility] in February 2022. Hyperlipidemia OAB (overactive bladder) CKD (chronic kidney disease), stage III Hypertensive CKD (chronic kidney disease) Raynauds disease Surgical History Surgical History (Updated 06/27/25 @ 12:48 by ROMEO Allison) S/P ablation of atrial fibrillation Family History Family History Mother Family history of coronary artery disease Social History Social History Social History: , lives alone in [place], 2 sons and 1 daughter. Smoking status: Never smoker Second hand tobacco smoke exposure: No Alcohol intake: never Substance use: never Substance use type: does not use Lack of Transportation: No Lack of Food: Never True Current Housing: I Have Housing Concerned About Future Housing: No Difficulty Paying Gas/Electric Bills: No Difficulty Paying for Meds: No Currently Unemployed: No Education: High School Diploma/GED Difficulty w/ Childcare or Family Care: No Living arrangements: alone Occupation/Education: retired Gender identity (if verbalized by the patient): Female Sexual Orientation (if Verbalized by the Patient): Straight or Heterosexual Spiritual care concerns: No Meds Home Medications and Allergies Home Medications ?Medication ?Instructions ?Recorded ?Confirmed ?Type atorvastatin 20 mg tablet 20 mg PO DAILY #30 tabs 01/21/24 06/26/25 Rx diltiazem HCl 120 mg capsule,24 See Rx Instructions .Route 12/13/24 06/26/25 Rx hr,extended release (Tiadylt ER) .COMPLEX #90 caps omeprazole 40 mg capsule,delayed 40 mg PO DAILY #90 caps 02/20/25 06/26/25 Rx release irbesartan 150 mg tablet See Rx Instructions .Route 04/28/25 06/26/25 Rx .COMPLEX #90 tabs apixaban 2.5 mg tablet (Eliquis) 2.5 mg PO BID #60 tabs 06/05/25 06/26/25 Rx gabapentin 100 mg capsule 100 mg PO BID PRN nerve pain #60 06/14/25 06/26/25 Rx caps tramadol 50 mg tablet 50 mg PO BID PRN pain #20 tabs 06/20/25 06/26/25 Rx Allergies Allergy/AdvReac Type Severity Reaction Status Date / Time No Known Allergies Allergy Verified 06/26/25 12:45 Vital Signs Vital Signs - 24 hr 06/26/25 12:40 06/26/25 16:12 06/26/25 18:34 Temperature 97.9 F Pulse Rate 64 61 65 Respiratory Rate 20 14 14 Blood Pressure 111/54 L 109/55 L 136/77 Pulse Oximetry 100 99 100 Oxygen Delivery Room Air 06/26/25 19:08 06/26/25 20:13 06/26/25 20:34 Temperature 97.7 F Pulse Rate 64 69 63 Respiratory Rate 18 14 18 Blood Pressure 138/72 139/90 174/67 H Pulse Oximetry 98 98 99 Oxygen Delivery 06/27/25 04:36 Temperature 97.6 F Pulse Rate 83 Respiratory Rate 20 Blood Pressure 166/89 H Pulse Oximetry 99 Oxygen Delivery Exam Narrative: General: NAD Eyes: EOMI ENT: neck supple Cardiovascular: irregurarly irregular Respiratory: Clear to auscultation, respirations even and unlabored on RA Gastrointestinal: Soft, non tender Genitourinary: no suprapubic tenderness Musculoskeletal: midline tenderness of the lower L-spine and right paraspinal musculature. Skin: warm, dry Neuro: Alert. Strength 5/5 in BLEs, sensation intact BLEs. Psych: anxious H&P: Results Labs Labs: Short CBC 06/26/25 Range/Units 17:40 WBC 8.4 (4.5-10.0) K/mm3 Hgb 10.5 L (12.0-15.0) g/dL Hct 31.5 L (37.0-47.0) % Plt Count 170 (150-375) k/mm3 BMP 06/26/25 17:40 Sodium 129 L Potassium 4.4 Chloride 95 L Carbon Dioxide 25 BUN 19 H Creatinine 1.30 H Glucose 92 Calcium 9.1 Liver Function 06/26/25 Range/Units 17:40 Total Bilirubin 1.2 (0.2-1.3) mg/dL AST 27 (14-36) U/L ALT 13 (6-35) U/L Alkaline Phosphatase 120 (38-126) U/L Albumin 3.6 (3.5-5.1) g/dL Urine 06/26/25 Range/Units 14:43 Urine Color Dark yellow (Yellow) Urine Appearance Clear (Clear) Urine pH 5.5 (5.0-9.0) Ur Specific Bishop 1.019 (1.001-1.035) Urine Protein Trace (Negative) mg/dL Urine Glucose (UA) Negative (Negative) mg/dL Assessment and Plan Assessment and plan (1) Acute on chronic back pain: Code(s): M54.9 - Dorsalgia, unspecified; G89.29 - Other chronic pain Status: Acute Assessment and Plan: - initial injury 2 weeks ago while heavy lifting, seen in ER here 06/08, CT L-spine at that time showed moderate to advanced degenerative changes and a moderate chronic L1 compression fracture - admit XR lumbar spine with 25 degree dextro scoliosis with severe spondylosis - no red flag neurologic symptoms - suspect symptoms related to sciatica, less likely from chronic compression fracture - MRI L-spine ordered - consider neurosurgery consult pending results - given concerns for side effects from current pain regimen - stop Tramadol, schedule Tylenol 500 mg q6H, decrease gabapentin to 100 mg daily, utilize [place] 5-325mg BID PRN for breakthrough pain. Also ordered lidocaine patch and heating pad. Patient has outpatient referral for pain management pending. (2) Hyponatremia: Code(s): E87.1 - Hypo-osmolality and hyponatremia Status: Acute Assessment and Plan: - sodium 129 on presentation -patient reports decreased p.o. intake in setting of nausea and pain -started gentle IV fluids -repeat BMP in a.m. (3) Paroxysmal A-fib: Code(s): I48.0 - Paroxysmal atrial fibrillation Status: Acute Assessment and Plan: - continue home Eliquis, diltiazem (4) Hyperlipidemia: Code(s): E78.5 - Hyperlipidemia, unspecified Status: Acute (5) CKD (chronic kidney disease), stage III: Code(s): N18.3 - Chronic kidney disease, stage 3 (moderate) Status: Acute Assessment and Plan: - Cr 1.3 on presentation. Baseline around 1.1. - on IV fluids, monitor renal function (6) Essential hypertension: Code(s): I10 - Essential (primary) hypertension Status: Acute Assessment and Plan: - continue home Irbesartan (7) Chronic anemia: Code(s): D64.9 - Anemia, unspecified Status: Acute Assessment and Plan: - Hgb 10.5, stable (8) Nausea: Code(s): R11.0 - Nausea Status: Acute Assessment and Plan: - suspect due to pain and narcotics - continue PRN Zofran - bowel regimen Quality VTE Prophylaxis VTE prophylaxis: pharmacologic ordered Hospitalist [facility] Advance Care Plan I have confirmed that the patient's Advanced Care Plan is present, code status is documented, or surrogate decision maker is listed in patient medical record.: Yes Medication Reconciliation I have utilized all available resources to obtain, update and review the patients current medications (includes all prescriptions, OTC, herbals, cannabis, and nutritional supplements).: Yes The patient is not eligible for med reconciliation; the patient is in a emergent medical situation where delaying treatment would jeopardize the patients health.: Yes
[2025-06-27] MEDS: APIXABAN 2.5 MG TABLET PO ×2 (09:05→20:28)
[2025-06-27] MEDS: ONDANSETRON INJ 4 MG/2 ML VIAL IV PUSH (09:05)
[2025-06-27] MEDS: ACETAMINOPHEN 500 MG TABLET PO ×3 (10:08→21:44)
[2025-06-27] MEDS: IRBESARTAN 150 MG TABLET PO (10:08)
[2025-06-27] MEDS: dilTIAZem HCL CD 120 MG CAP.24HR PO (10:08)
[2025-06-27] MEDS: LACTATED RINGERS 1,000 ML 75 ML IV CONT (10:09)
[2025-06-27] MEDS: PANTOPRAZOLE 40 MG TABLET PO ×2 (12:13→20:29)
[2025-06-27] MEDS: HYDROcodone/acetaminophen (*CRX) 5-325 MG TABLET 1 TAB PO ×2 (13:33→22:04)
[2025-06-27] MEDS: LIDOCAINE 5% PATCH 1 PATCH TRANSDERM (13:34)
[2025-06-27 14:00] VITALS: BP 162/77; PULSE 89; RESP 16; O2SAT 98
[2025-06-27 20:00] VITALS: PULSE 78; RESP 20; O2SAT 98
[2025-06-27 20:22] VITALS: BP 143/67; PULSE 78; RESP 20; TEMP 36.6; O2SAT 98
[2025-06-28 03:27] VITALS: BP 151/74; PULSE 88; RESP 18; TEMP 36.8; O2SAT 97
[2025-06-28] MEDS: ACETAMINOPHEN 500 MG TABLET PO ×3 (03:59→17:40)
[2025-06-28 05:54] LABS: Anion Gap 9 mmol/L (4-12); Blood Urea Nitrogen 26 mg/dL (7-17); Calcium 9.1 mg/dL (8.4-10.2); Carbon Dioxide 23 mmol/L (22-30); Chloride 94 mmol/L (98-107); Estimated CRCL calculation 22 ml/min; Estimated Glomerular Filt Rate 39; Glucose 131 mg/dL (65-110); Potassium 4.7 mmol/L (3.4-5.0); Sodium 126 mmol/L (137-145)
[2025-06-28] MEDS: ONDANSETRON HCL ODT 4 MG TABLET PO (08:35)
[2025-06-28] MEDS: PANTOPRAZOLE 40 MG TABLET PO ×2 (09:33→20:43)
[2025-06-28] MEDS: APIXABAN 2.5 MG TABLET PO ×2 (09:33→20:43)
[2025-06-28] MEDS: dilTIAZem HCL CD 120 MG CAP.24HR PO (09:34)
[2025-06-28] MEDS: GABAPENTIN 100 MG CAPSULE PO (09:34)
[2025-06-28] MEDS: IRBESARTAN 150 MG TABLET PO (09:34)
[2025-06-28] MEDS: ATORVASTATIN 20 MG TABLET PO (09:34)
[2025-06-28] MEDS: HYDROcodone/acetaminophen (*CRX) 5-325 MG TABLET 1 TAB PO ×2 (12:07→20:43)
[2025-06-28 14:00] VITALS: BP 145/77; PULSE 75; RESP 14; TEMP 37.3; O2SAT 98
--- NOTE | 2025-06-28 15:03 | P.CONNS_ITS ---
Assessment and Plan Assessment and plan (1) Lumbar radiculopathy: Code(s): M54.16 - Radiculopathy, lumbar region Status: Acute Plan Ms. Luis is an 89-year-old female with a chronic history of lower back pain who was admitted on 06/26 with intractable right leg pain for the last two weeks. She is neurologically intact on physical exam. 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 While her pain does not strictly follow a dermatomal pattern, I believe her leg pain is most likely related to the foraminal stenosis at L4-5. We discussed that surgery is sometimes an option for these types of symptoms but that surgery is a last-resort option for those who have failed treatments like physical therapy, injections with pain management, and medication. She is very agreeable and wishes to avoid surgery. I would recommend starting her on steroids (could try decadron 4mg q 6 hours as inpatient and discharge on Medrol dosepak). A muscle relaxer could also be helpful. She should continue to work with physical therapy as an inpatient and outpatient. I would recommend outpatient referral to Pain Management for consideration of a right L4-5 epidural steroid injection. I will arrange for follow up with me in clinic in about 6 weeks to monitor her progress. She does not need to keep that appointment if she is doing well by that time. Consult date: 06/28/25 HPI: Luly Luis is an 89 year old female with history of atrial fibrillation on Eliquis, CHF, HTN, HLD, CKD who was admitted on 06/26 with two weeks of intractable right leg pain. She indicates she has low-back pain regularly which is controlled with Tylenol arthritis. Earlier this month, she lifted a heavy watermelon and developed severe right leg pain. The pain seems to involve the entire inside and outside of the leg to the foot and is intermittent but significant when it occurs. She describes an incident in which her leg felt it would give out on her. She has seen her PCP for this and has been to the ER both at [facility] and at [facility]. She has been given medication which has caused some side effects. She is somewhat of a poor historian, but her family helped provide some details. She denies any left-sided symptoms. She had a session of physical therapy today. She has not seen pain management. Review of Systems 2 Review of Systems: All systems reviewed & are unremarkable except as noted in HPI and below PMFSH Past Medical History Medical History (Updated 06/27/25 @ 12:56 by ROMEO Allison) Superior mesenteric artery stenosis asymptomatic, seen on CT Diastolic CHF Paroxysmal A-fib Status post AFib ablation by Dr. Velazquez at [facility] in February 2022. Hyperlipidemia OAB (overactive bladder) CKD (chronic kidney disease), stage III Hypertensive CKD (chronic kidney disease) Raynauds disease Surgical History Surgical History (Updated 06/27/25 @ 12:48 by ROMEO Allison) S/P ablation of atrial fibrillation Family History Family History Mother Family history of coronary artery disease Social History Social History Social History: , lives alone in [place], 2 sons and 1 daughter. Smoking status: Never smoker Second hand tobacco smoke exposure: No Alcohol intake: never Substance use: never Substance use type: does not use Lack of Transportation: No Lack of Food: Never True Current Housing: I Have Housing Concerned About Future Housing: No Difficulty Paying Gas/Electric Bills: No Difficulty Paying for Meds: No Currently Unemployed: No Education: High School Diploma/GED Difficulty w/ Childcare or Family Care: No Living arrangements: alone Occupation/Education: retired Gender identity (if verbalized by the patient): Female Sexual Orientation (if Verbalized by the Patient): Straight or Heterosexual Spiritual care concerns: No Meds Home Medications and Allergies Home Medications ?Medication ?Instructions ?Recorded ?Confirmed ?Type atorvastatin 20 mg tablet 20 mg PO DAILY #30 tabs 01/21/24 06/26/25 Rx diltiazem HCl 120 mg capsule,24 See Rx Instructions .Route 12/13/24 06/26/25 Rx hr,extended release (Tiadylt ER) .COMPLEX #90 caps omeprazole 40 mg capsule,delayed 40 mg PO DAILY #90 caps 02/20/25 06/26/25 Rx release irbesartan 150 mg tablet See Rx Instructions .Route 04/28/25 06/26/25 Rx .COMPLEX #90 tabs apixaban 2.5 mg tablet (Eliquis) 2.5 mg PO BID #60 tabs 06/05/25 06/26/25 Rx gabapentin 100 mg capsule 100 mg PO BID PRN nerve pain #60 06/14/25 06/26/25 Rx caps tramadol 50 mg tablet 50 mg PO BID PRN pain #20 tabs 06/20/25 06/26/25 Rx Allergies Allergy/AdvReac Type Severity Reaction Status Date / Time No Known Allergies Allergy Verified 06/26/25 12:45 Vital Signs Vital Signs - 24 hr 06/27/25 20:00 06/27/25 20:22 06/28/25 03:27 Temperature 97.8 F 98.2 F Pulse Rate 78 78 88 Respiratory Rate 20 20 18 Blood Pressure 143/67 H 151/74 H Pulse Oximetry 98 98 97 Oxygen Delivery Room Air 06/28/25 09:30 06/28/25 10:59 Temperature Pulse Rate Respiratory Rate Blood Pressure Pulse Oximetry Oxygen Delivery Room Air Room Air Exam 2 Narrative: General: -Well developed and well nourished. No a cute distress. Cooperative with exam. Mental status: -Awake and oriented to person, place, an d time. Integumentary: -No obvious skin lesions or masses Motor: -Muscle tone normal without spasticity o f flaccidity. No atrophy. No fasciculations. -No pronator drift -Right upper extremity: deltoid 5/5, bic eps 5/5, triceps 5/5, wrist extensors 5/5, wrist flexors 5/5, intrinsics 5/5 -Left upper extremity: deltoid 5/5, clementine ps 5/5, triceps 5/5, wrist extensors 5/5, wrist flexors 5/5, intrinsics 5/5 -Right lower extremity: iliopsoas 5/5, q uadriceps 5/5, hamstrings 5/5, tibialis anterior 5/5, gastroc-soleus 5/5, EHL 5/5 -Left lower extremity: iliopsoas 5/5, qu adriceps 5/5, hamstrings 5/5, tibialis anterior 5/5, gastroc-soleus 5/5, EHL 5/5 Sensory: -Intact to light touch throughout -Normal proprioception throughout Reflexes: -1-2+ DTR's throughout -No Tucker's, clonus, or Babinski bilat erally Musculoskeletal: -Lumbar spine: no tenderness to palpatio n, no pain, and normal lumbosacral spine movements -[id number] test negative -Hip: normal range of motion, no crepitu s bilaterally. No pain reproduced on CELINA or FAIR testing bilaterally -Knee: no instability, subluxation or la xity, and no crepitus bilaterally Results Labs 06/26/25 17:40 06/28/25 04:45 Labs: BMP 06/28/25 04:45 Sodium 126 L Potassium 4.7 Chloride 94 L Carbon Dioxide 23 BUN 26 H Creatinine 1.30 H Glucose 131 H Calcium 9.1 Imaging My impression: I personally reviewed the MRI lumbar which shows a degenerative dextroscoliosis with significant facet arthropathy at multiple levels and right neuroforaminal stenosis at L4-5
--- NOTE | 2025-06-28 16:35 | P.PNIM_ITS ---
Progress Note: A&P Assessment and Plan (1) Paroxysmal A-fib: Code(s): I48.0 - Paroxysmal atrial fibrillation Status: Acute Plan (1) Acute on chronic back pain: Code(s): M54.9 - Dorsalgia, unspecified; G89.29 - Other chronic pain Status: Acute Assessment and Plan: - initial injury 2 weeks ago while heavy lifting, seen in ER here 06/08, CT L- spine at that time showed moderate to advanced degenerative changes and a moderate chronic L1 compression fracture - admit XR lumbar spine with 25 degree dextro scoliosis with severe spondylosis - no red flag neurologic symptoms - suspect symptoms related to sciatica, less likely from chronic compression fracture - MRI: 25 degrees lumbar dextroscoliosis with severe spondylosis. 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 We discussed that surgery is sometimes an option for these types of symptoms but that surgery is a last-resort option for those who have failed treatments like physical therapy, injections with pain management, and medication.decadron 4mg q 6 hours as inpatient and discharge on Medrol dosepak outpatient referral to Pain Management for consideration of a right L4-5 epidural steroid injection Hyponatremia and CARISSA Code(s): E87.1 - Hypo-osmolality and hyponatremia Status: Acute Assessment and Plan: - sodium 129 on presentation -patient reports decreased p.o. intake in setting of nausea and pain C/w NS 125 ML/H Paroxysmal A-fib: Code(s): I48.0 - Paroxysmal atrial fibrillation Status: Acute Assessment and Plan: - continue home Eliquis, diltiazem (4) Hyperlipidemia: Code(s): E78.5 - Hyperlipidemia, unspecified Status: Acute (6) Essential hypertension: Code(s): I10 - Essential (primary) hypertension Status: Acute Assessment and Plan: - continue home Irbesartan (7) Chronic anemia: Code(s): D64.9 - Anemia, unspecified Status: Acute Assessment and Plan: - Hgb 10.5, stable (8) Nausea: Code(s): R11.0 - Nausea Status: Acute Assessment and Plan: - suspect due to pain and narcotics - continue PRN Zofran - bowel regimen Subjective Date/time seen: 06/28/25 16:35 Interval history: I saw exam patient in presents of patient's family. Patient still has low back pain, radiated to the right lower extremity Patient denies urinary fecal incontinence Patient afebrile, blood pressure stable Exam Narrative: General: NAD Eyes: EOMI ENT: neck supple Cardiovascular: irregurarly irregular Respiratory: Clear to auscultation, respirations even and unlabored on RA Gastrointestinal: Soft, non tender Genitourinary: no suprapubic tenderness Musculoskeletal: midline tenderness of the lower L-spine and right paraspinal musculature. Skin: warm, dry Neuro: Alert. Strength 5/5 in BLEs, sensation intact BLEs. Psych: anxious Objective Data Vital Signs Vital Signs: Vital Signs - 24 hr 06/27/25 20:00 06/27/25 20:22 06/28/25 03:27 Temperature 97.8 F 98.2 F Pulse Rate 78 78 88 Respiratory Rate 20 20 18 Blood Pressure 143/67 H 151/74 H Pulse Oximetry 98 98 97 Oxygen Delivery Room Air 06/28/25 09:30 06/28/25 10:59 06/28/25 14:00 Temperature 99.2 F Pulse Rate 75 Respiratory Rate 14 Blood Pressure 145/77 H Pulse Oximetry 98 Oxygen Delivery Room Air Room Air Intake/Output Intake/Output: Intake & Output 06/25/25 06/26/25 06/27/25 06/28/25 23:59 23:59 23:59 23:59 Intake Total 1570 2080 Output Total 175 Balance 1395 2080 Meds/Results Medications: Active Medications Generic Name Dose Route Start Last Admin Trade Name Freq PRN Reason Stop Dose Admin Acetaminophen 500 mg 06/27/25 10:00 06/28/25 09:33 Acetaminophen 500 Mg Tablet PO 500 mg Q6H DIANE Administration Hydrocodone Bitart/Acetaminophen 1 tab 06/27/25 09:53 06/28/25 12:07 Hydrocodone/Acetaminophen (*Crx) 5-325 Mg Tablet PO 1 tab Q12H PRN Administration Pain Rated 4-6 Apixaban 2.5 mg 06/26/25 17:50 06/28/25 09:33 Apixaban 2.5 Mg Tablet PO 2.5 mg Q12HR DIANE Administration Atorvastatin Calcium 20 mg 06/28/25 09:00 06/28/25 09:34 Atorvastatin 20 Mg Tablet PO 20 mg DAILY DIANE Administration Dexamethasone 4 mg 06/28/25 15:20 Dexamethasone 4 Mg Tablet PO Q6HR DIANE Diltiazem HCl 120 mg 06/27/25 09:50 06/28/25 09:34 Diltiazem Hcl Cd 120 Mg Cap.24hr PO 120 mg DAILY DIANE Administration Gabapentin 100 mg 06/28/25 09:00 06/28/25 09:34 Gabapentin 100 Mg Capsule PO 100 mg DAILY DIANE Administration Irbesartan 150 mg 06/27/25 09:50 06/28/25 09:34 Irbesartan 150 Mg Tablet PO 150 mg DAILY DIANE Administration Lidocaine 1 patch 06/27/25 14:00 06/28/25 15:56 Lidocaine 5% Patch TRANSDERM Not Given DAILY [facility] Ondansetron HCl 4 mg 06/28/25 08:08 06/28/25 08:35 Ondansetron Hcl Odt 4 Mg Tablet PO 4 mg Q6H PRN Administration Nausea And Vomiting Pantoprazole Sodium 40 mg 06/27/25 10:10 06/28/25 09:33 Pantoprazole 40 Mg Tablet PO 40 mg Q12HR DIANE Administration Polyethylene Glycol 17 gm 06/27/25 14:00 06/28/25 09:34 Polyethylene Glycol 3350 17 Gm Powd.Pack PO 17 gm QAM DIANE Administration Radiology Results: ITS Impressions Lumbar Spine X-Ray 06/26/25 15:26 IMPRESSION: 1. 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 Lumbar Spine MRI 06/27/25 14:18 IMPRESSION: 1. 25 degrees lumbar dextroscoliosis with severe spondylosis. Labs Labs: Laboratory Results - last 24 hr 06/28/25 04:45 Sodium 126 L Potassium 4.7 Chloride 94 L Carbon Dioxide 23 Anion Gap 9 BUN 26 H Creatinine 1.30 H Estim Creat Clear Calc 22 Estimated GFR 39 L Glucose 131 H Calcium 9.1
[2025-06-28] MEDS: SODIUM CHLORIDE 0.9% IV 1,000 ML 125 ML IV CONT (17:39)
[2025-06-28 21:09] VITALS: BP 160/69; PULSE 96; RESP 16; TEMP 36.8; O2SAT 99
[2025-06-28 21:26] VITALS: O2SAT 99
[2025-06-29] MEDS: SODIUM CHLORIDE 0.9% IV 1,000 ML 125 ML IV CONT ×2 (02:09→10:52)
[2025-06-29] MEDS: HYDROcodone/acetaminophen (*CRX) 5-325 MG TABLET 1 TAB PO ×3 (02:10→16:50)
[2025-06-29] MEDS: ACETAMINOPHEN 500 MG TABLET PO ×2 (04:55→21:17)
[2025-06-29 05:41] VITALS: BP 151/64; PULSE 76; RESP 18; TEMP 36.3; O2SAT 99
[2025-06-29] MEDS: APIXABAN 2.5 MG TABLET PO ×2 (10:26→21:17)
[2025-06-29] MEDS: ATORVASTATIN 20 MG TABLET PO (10:26)
[2025-06-29] MEDS: dilTIAZem HCL CD 120 MG CAP.24HR PO (10:26)
[2025-06-29] MEDS: GABAPENTIN 100 MG CAPSULE PO (10:26)
[2025-06-29] MEDS: PANTOPRAZOLE 40 MG TABLET PO ×2 (10:27→21:17)
[2025-06-29] MEDS: IRBESARTAN 150 MG TABLET PO (10:27)
[2025-06-29] MEDS: LIDOCAINE 5% PATCH 1 PATCH TRANSDERM (10:27)
--- NOTE | 2025-06-29 10:32 | P.PNIM_ITS ---
Progress Note: A&P Assessment and Plan (1) Paroxysmal A-fib: Code(s): I48.0 - Paroxysmal atrial fibrillation Status: Acute Plan (1) Acute on chronic back pain: Code(s): M54.9 - Dorsalgia, unspecified; G89.29 - Other chronic pain Status: Acute Assessment and Plan: - initial injury 2 weeks ago while heavy lifting, seen in ER here 06/08, CT L- spine at that time showed moderate to advanced degenerative changes and a moderate chronic L1 compression fracture - admit XR lumbar spine with 25 degree dextro scoliosis with severe spondylosis - no red flag neurologic symptoms - suspect symptoms related to sciatica, less likely from chronic compression fracture - MRI: 25 degrees lumbar dextroscoliosis with severe spondylosis. 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 We discussed that surgery is sometimes an option for these types of symptoms but that surgery is a last-resort option for those who have failed treatments like physical therapy, injections with pain management, and medication.decadron 4mg q 6 hours as inpatient and discharge on Medrol dosepak outpatient referral to Pain Management for consideration of a right L4-5 epidural steroid injection Hyponatremia and CARISSA Code(s): E87.1 - Hypo-osmolality and hyponatremia Status: Acute Assessment and Plan: - sodium 129 on presentation -patient reports decreased p.o. intake in setting of nausea and pain C/w NS 125 ML/H Paroxysmal A-fib: Code(s): I48.0 - Paroxysmal atrial fibrillation Status: Acute Assessment and Plan: - continue home Eliquis, diltiazem (4) Hyperlipidemia: Code(s): E78.5 - Hyperlipidemia, unspecified Status: Acute (6) Essential hypertension: Code(s): I10 - Essential (primary) hypertension Status: Acute Assessment and Plan: - continue home Irbesartan (7) Chronic anemia: Code(s): D64.9 - Anemia, unspecified Status: Acute Assessment and Plan: - Hgb 10.5, stable (8) Nausea: Code(s): R11.0 - Nausea Status: Acute Assessment and Plan: - suspect due to pain and narcotics - continue PRN Zofran - bowel regimen Patient will benefit from rehab in [facility] Consult foster care worker for placement Subjective Date/time seen: 06/29/25 10:32 Interval history: I saw exam patient Patient was able to ambulate with assistance, denies urinary fecal incontinence. Patient still has back pain when patient was walking. Denies chest pain abdomen pain nausea vomiting diarrhea Exam Narrative: General: NAD Eyes: EOMI ENT: neck supple Cardiovascular: irregurarly irregular Respiratory: Clear to auscultation, respirations even and unlabored on RA Gastrointestinal: Soft, non tender Genitourinary: no suprapubic tenderness Musculoskeletal: midline tenderness of the lower L-spine and right paraspinal musculature. Skin: warm, dry Neuro: Alert. Strength 5/5 in BLEs, sensation intact BLEs. Psych: anxious Objective Data Vital Signs Vital Signs: Vital Signs - 24 hr 06/28/25 10:59 06/28/25 14:00 06/28/25 20:00 Temperature 99.2 F Pulse Rate 75 Respiratory Rate 14 Blood Pressure 145/77 H Pulse Oximetry 98 Oxygen Delivery Room Air Room Air 06/28/25 21:09 06/28/25 21:26 06/29/25 05:41 Temperature 98.3 F 97.3 F L Pulse Rate 96 76 Respiratory Rate 16 18 Blood Pressure 160/69 H 151/64 H Pulse Oximetry 99 99 99 Oxygen Delivery Room Air Intake/Output Intake/Output: Intake & Output 06/26/25 06/27/25 06/28/25 06/29/25 23:59 23:59 23:59 23:59 Intake Total 1570 2200 1240 Output Total 175 Balance 1395 2200 1240 Meds/Results Medications: Active Medications Generic Name Dose Route Start Last Admin Trade Name Freq PRN Reason Stop Dose Admin Acetaminophen 500 mg 06/27/25 10:00 06/29/25 10:27 Acetaminophen 500 Mg Tablet PO 500 mg Q6H DIANE Administration Hydrocodone Bitart/Acetaminophen 1 tab 06/28/25 18:35 06/29/25 10:26 Hydrocodone/Acetaminophen (*Crx) 5-325 Mg Tablet PO 1 tab Q4H PRN Administration Pain Rated 4-6 Apixaban 2.5 mg 06/26/25 17:50 06/29/25 10:26 Apixaban 2.5 Mg Tablet PO 2.5 mg Q12HR DIANE Administration Atorvastatin Calcium 20 mg 06/28/25 09:00 06/29/25 10:26 Atorvastatin 20 Mg Tablet PO 20 mg DAILY DIANE Administration Dexamethasone 4 mg 06/28/25 15:20 06/29/25 04:56 Dexamethasone 4 Mg Tablet PO 4 mg Q6HR DIANE Administration Diltiazem HCl 120 mg 06/27/25 09:50 06/29/25 10:26 Diltiazem Hcl Cd 120 Mg Cap.24hr PO 120 mg DAILY DIANE Administration Gabapentin 100 mg 06/28/25 09:00 06/29/25 10:26 Gabapentin 100 Mg Capsule PO 100 mg DAILY DIANE Administration Sodium Chloride 1,000 mls @ 125 mls/hr 06/28/25 16:50 06/29/25 02:09 Normal Saline Iv IV CONT 125 mls/hr .Q8H DIANE Administration Irbesartan 150 mg 06/27/25 09:50 06/29/25 10:27 Irbesartan 150 Mg Tablet PO 150 mg DAILY DIANE Administration Lidocaine 1 patch 06/27/25 14:00 06/29/25 10:27 Lidocaine 5% Patch TRANSDERM 1 patch DAILY DIANE Administration Ondansetron HCl 4 mg 06/28/25 08:08 06/28/25 08:35 Ondansetron Hcl Odt 4 Mg Tablet PO 4 mg Q6H PRN Administration Nausea And Vomiting Pantoprazole Sodium 40 mg 06/27/25 10:10 06/29/25 10:27 Pantoprazole 40 Mg Tablet PO 40 mg Q12HR DIANE Administration Polyethylene Glycol 17 gm 06/27/25 14:00 06/29/25 10:28 Polyethylene Glycol 3350 17 Gm Powd.Pack PO Not Given QAM [facility] Radiology Results: ITS Impressions Lumbar Spine X-Ray 06/26/25 15:26 IMPRESSION: 1. 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 Lumbar Spine MRI 06/27/25 14:18 IMPRESSION: 1. 25 degrees lumbar dextroscoliosis with severe spondylosis.
[2025-06-29] MEDS: CYCLOBENZAPRINE HCL 5 MG TABLET PO ×2 (10:54→21:17)
[2025-06-29 11:11] LABS: Hematocrit 31.6 % (37.0-47.0); Hemoglobin 10.8 g/dL (12.0-15.0); Mean Corpuscular HGB Conc 34.2 g/dl (32-36); Mean Corpuscular Hemoglobin 34.5 pg (26-34); Mean Corpuscular Volume 101.0 fl (80-100); Platelet Count Result 239 k/mm3 (150-375); Red Blood Count 3.13 M/mm3 (4.2-5.4); White Blood Count 11.3 K/mm3 (4.5-10.0)
--- NOTE | 2025-06-29 11:24 | PC.NURSE ---
RN updated patient's daughter and son.
[2025-06-29 11:36] LABS: Anion Gap 10 mmol/L (4-12); Blood Urea Nitrogen 23 mg/dL (7-17); Calcium 9.1 mg/dL (8.4-10.2); Carbon Dioxide 23 mmol/L (22-30); Chloride 100 mmol/L (98-107); Estimated CRCL calculation 24 ml/min; Estimated Glomerular Filt Rate 44; Glucose 157 mg/dL (65-110); Potassium 4.3 mmol/L (3.4-5.0); Sodium 133 mmol/L (137-145)
[2025-06-29 14:00] VITALS: BP 135/66; PULSE 78; RESP 14; O2SAT 100
--- NOTE | 2025-06-29 16:52 | PC.NURSE ---
RN assessed patient before pain medication administration and noted patient had flushed face and patient was complaining of feeling hot. Patient states this happened yesterday and was not accompanied by any struggles to breathe or itchiness.
[2025-06-29] MEDS: ZOLPIDEM TARTRATE (*CRX) 5 MG TABLET PO (21:17)
[2025-06-29 21:32] VITALS: O2SAT 95
[2025-06-29 22:32] VITALS: BP 143/70; PULSE 71; RESP 16; TEMP 36.8; O2SAT 98
[2025-06-30] MEDS: SODIUM CHLORIDE 0.9% IV 1,000 ML 125 ML IV CONT ×2 (03:02→11:20)
[2025-06-30] MEDS: ACETAMINOPHEN 500 MG TABLET PO (05:16)
[2025-06-30 07:27] VITALS: BP 140/75; PULSE 100; RESP 14; TEMP 36.7; O2SAT 96
[2025-06-30] MEDS: PANTOPRAZOLE 40 MG TABLET PO ×2 (09:20→21:22)
[2025-06-30] MEDS: dilTIAZem HCL CD 120 MG CAP.24HR PO (09:20)
[2025-06-30] MEDS: CYCLOBENZAPRINE HCL 5 MG TABLET PO ×2 (09:22→21:22)
[2025-06-30] MEDS: ATORVASTATIN 20 MG TABLET PO (09:22)
[2025-06-30] MEDS: GABAPENTIN 100 MG CAPSULE PO (09:22)
[2025-06-30] MEDS: APIXABAN 2.5 MG TABLET PO ×2 (09:22→21:22)
[2025-06-30] MEDS: IRBESARTAN 150 MG TABLET PO (09:22)
[2025-06-30] MEDS: LIDOCAINE 5% PATCH 1 PATCH TRANSDERM (09:23)
[2025-06-30] MEDS: HYDROcodone/acetaminophen (*CRX) 5-325 MG TABLET 1 TAB PO ×3 (09:38→21:23)
--- NOTE | 2025-06-30 09:41 | P.PNIM_ITS ---
Progress Note: A&P Assessment and Plan (1) Paroxysmal A-fib: Code(s): I48.0 - Paroxysmal atrial fibrillation Status: Acute Plan (1) Acute on chronic back pain: Code(s): M54.9 - Dorsalgia, unspecified; G89.29 - Other chronic pain Status: Acute Assessment and Plan: - initial injury 2 weeks ago while heavy lifting, seen in ER here 06/08, CT L- spine at that time showed moderate to advanced degenerative changes and a moderate chronic L1 compression fracture - admit XR lumbar spine with 25 degree dextro scoliosis with severe spondylosis - no red flag neurologic symptoms - suspect symptoms related to sciatica, less likely from chronic compression fracture - MRI: 25 degrees lumbar dextroscoliosis with severe spondylosis. 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 We discussed that surgery is sometimes an option for these types of symptoms but that surgery is a last-resort option for those who have failed treatments like physical therapy, injections with pain management, and medication.decadron 4mg q 6 hours as inpatient and discharge on Medrol dosepak outpatient referral to Pain Management for consideration of a right L4-5 epidural steroid injection Hyponatremia and CARISSA Code(s): E87.1 - Hypo-osmolality and hyponatremia Status: Acute Assessment and Plan: - sodium 129 on presentation -patient reports decreased p.o. intake in setting of nausea and pain. 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 Paroxysmal A-fib: Code(s): I48.0 - Paroxysmal atrial fibrillation Status: Acute Assessment and Plan: - continue home Eliquis, diltiazem (4) Hyperlipidemia: Code(s): E78.5 - Hyperlipidemia, unspecified Status: Acute (6) Essential hypertension: Code(s): I10 - Essential (primary) hypertension Status: Acute Assessment and Plan: - continue home Irbesartan (7) Chronic anemia: Code(s): D64.9 - Anemia, unspecified Status: Acute Assessment and Plan: - Hgb 10.5, stable (8) Nausea: Code(s): R11.0 - Nausea Status: Acute Assessment and Plan: - suspect due to pain and narcotics - continue PRN Zofran - bowel regimen Patient [facility] Consult director career for placement Subjective Date/time seen: 06/30/25 09:41 Interval history: I saw exam patient Patient has no new issue even overnight, still has lower back pain, worse with ambulation Patient denies focal weakness, abnormal sensation, urinary fecal incontinence Exam Narrative: GENERAL: Pleasant, in no acute distress. Well-nourished. - EYES: EOMI. Anicteric. - HENT: Moist mucous membranes. - LUNGS: Clear to auscultation bilateral ly, no wheezing, rhonchi, or rales. - CARDIOVASCULAR: Regular rate and rhyth m. No murmur. No JVD. - ABDOMEN: Soft, non-tender and non-dist ended. No palpable masses. - EXTREMITIES: No edema. Peripheral puls es 2+. Non-tender. - NEUROLOGIC: No focal neurological defi cits. CN II-XII grossly intact. Lower back tenderness - PSYCHIATRIC: Awake, Alert and oriented x 3. Appropriate mood and affect. - SKIN: No rashes or lesions. Warm. - LYMPH: No cervical lymphadenopathy. Objective Data Vital Signs Vital Signs: Vital Signs - 24 hr 06/29/25 14:00 06/29/25 20:00 06/29/25 21:32 Temperature Pulse Rate 78 Respiratory Rate 14 Blood Pressure 135/66 Pulse Oximetry 100 95 Oxygen Delivery Room Air Room Air Fraction of Inspired Oxygen 21 06/29/25 22:32 06/30/25 07:27 Temperature 98.3 F 98.0 F Pulse Rate 71 100 Respiratory Rate 16 14 Blood Pressure 143/70 H 140/75 Pulse Oximetry 98 96 Oxygen Delivery Fraction of Inspired Oxygen Intake/Output Intake/Output: Intake & Output 06/27/25 06/28/25 06/29/25 06/30/25 23:59 23:59 23:59 23:59 Intake Total 1570 2200 4600 480 Output Total 175 Balance 1395 2200 4600 480 Meds/Results Medications: Active Medications Generic Name Dose Route Start Last Admin Trade Name Freq PRN Reason Stop Dose Admin Acetaminophen 500 mg 06/27/25 10:00 06/30/25 09:24 Acetaminophen 500 Mg Tablet PO Not Given Q6H DIANE Hydrocodone Bitart/Acetaminophen 1 tab 06/28/25 18:35 06/30/25 09:38 Hydrocodone/Acetaminophen (*Crx) 5-325 Mg Tablet PO 1 tab Q4H PRN Administration Pain Rated 4-6 Apixaban 2.5 mg 06/26/25 17:50 06/30/25 09:22 Apixaban 2.5 Mg Tablet PO 2.5 mg Q12HR DIANE Administration Atorvastatin Calcium 20 mg 06/28/25 09:00 06/30/25 09:22 Atorvastatin 20 Mg Tablet PO 20 mg DAILY DIANE Administration Cyclobenzaprine HCl 5 mg 06/29/25 10:35 06/30/25 09:22 Cyclobenzaprine Hcl 5 Mg Tablet PO 5 mg Q12HR DIANE Administration Dexamethasone 4 mg 06/28/25 15:20 06/30/25 05:17 Dexamethasone 4 Mg Tablet PO 4 mg Q6HR DIANE Administration Diltiazem HCl 120 mg 06/27/25 09:50 06/30/25 09:20 Diltiazem Hcl Cd 120 Mg Cap.24hr PO 120 mg DAILY DIANE Administration Gabapentin 100 mg 06/28/25 09:00 06/30/25 09:22 Gabapentin 100 Mg Capsule PO 100 mg DAILY DIANE Administration Sodium Chloride 1,000 mls @ 125 mls/hr 06/28/25 16:50 06/30/25 03:02 Normal Saline Iv IV CONT 125 mls/hr .Q8H DIANE Administration Irbesartan 150 mg 06/27/25 09:50 06/30/25 09:22 Irbesartan 150 Mg Tablet PO 150 mg DAILY DIANE Administration Lidocaine 1 patch 06/27/25 14:00 06/30/25 09:23 Lidocaine 5% Patch TRANSDERM 1 patch DAILY DIANE Administration Ondansetron HCl 4 mg 06/28/25 08:08 06/28/25 08:35 Ondansetron Hcl Odt 4 Mg Tablet PO 4 mg Q6H PRN Administration Nausea And Vomiting Pantoprazole Sodium 40 mg 06/27/25 10:10 06/30/25 09:20 Pantoprazole 40 Mg Tablet PO 40 mg Q12HR DIANE Administration Polyethylene Glycol 17 gm 06/27/25 14:00 06/30/25 09:24 Polyethylene Glycol 3350 17 Gm Powd.Pack PO 17 gm QAM DIANE Administration Zolpidem Tartrate 5 mg 06/29/25 14:01 06/29/25 21:17 Zolpidem Tartrate (*Crx) 5 Mg Tablet PO 5 mg HS PRN Administration Insomnia Radiology Results: ITS Impressions Lumbar Spine X-Ray 06/26/25 15:26 IMPRESSION: 1. 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 Lumbar Spine MRI 06/27/25 14:18 IMPRESSION: 1. 25 degrees lumbar dextroscoliosis with severe spondylosis. Labs Labs: Laboratory Results - last 24 hr 06/29/25 10:46 WBC 11.3 H RBC 3.13 L Hgb 10.8 L Hct 31.6 L MCV 101.0 H MCH 34.5 H MCHC 34.2 RDW 13.6 Plt Count 239 MPV 9.8 Sodium 133 L Potassium 4.3 Chloride 100 Carbon Dioxide 23 Anion Gap 10 BUN 23 H Creatinine 1.17 H Estim Creat Clear Calc 24 Estimated GFR 44 L Glucose 157 H Calcium 9.1
[2025-06-30 10:03] LABS: Hematocrit 29.5 % (37.0-47.0); Hemoglobin 9.8 g/dL (12.0-15.0); Immature Granulocyte Percent A 1.6 % (0-0.5); Lymphocytes Absolute Auto 0.63 K/mm3 (0.9-3.2); Mean Corpuscular HGB Conc 33.2 g/dl (32-36); Mean Corpuscular Hemoglobin 34.3 pg (26-34); Mean Corpuscular Volume 103.1 fl (80-100); Nucleated Red Blood Cells Absolute Auto 0.000 K/mm3 (0.0-0.012); Nucleated Red Blood Cells Perc 0.0 % (0.0-0.2); Platelet Count Result 220 k/mm3 (150-375); Red Blood Count 2.86 M/mm3 (4.2-5.4); White Blood Count 13.4 K/mm3 (4.5-10.0)
[2025-06-30 10:25] LABS: Anion Gap 7 mmol/L (4-12); Blood Urea Nitrogen 22 mg/dL (7-17); Calcium 8.4 mg/dL (8.4-10.2); Carbon Dioxide 20 mmol/L (22-30); Chloride 99 mmol/L (98-107); Estimated CRCL calculation 28 ml/min; Estimated Glomerular Filt Rate 52; Glucose 175 mg/dL (65-110); Potassium 4.3 mmol/L (3.4-5.0); Sodium 126 mmol/L (137-145)
[2025-06-30 14:00] VITALS: BP 154/69; PULSE 77; RESP 14; TEMP 36.6; O2SAT 100
[2025-06-30] MEDS: SODIUM CHLORIDE 500 MG TABLET 2000 MG PO (17:00)
[2025-06-30] MEDS: ZOLPIDEM TARTRATE (*CRX) 2.5 MG TABLET PO (21:23)
[2025-06-30 22:48] VITALS: BP 132/71; PULSE 77; RESP 16; TEMP 36.9; O2SAT 96
[2025-07-01 07:04] VITALS: BP 157/78; PULSE 97; RESP 16; TEMP 37; O2SAT 98
[2025-07-01 09:11] LABS: Hematocrit 30.0 % (37.0-47.0); Hemoglobin 10.2 g/dL (12.0-15.0); Immature Granulocyte Percent A 1.3 % (0-0.5); Lymphocytes Absolute Auto 0.65 K/mm3 (0.9-3.2); Mean Corpuscular HGB Conc 34.0 g/dl (32-36); Mean Corpuscular Hemoglobin 34.0 pg (26-34); Mean Corpuscular Volume 100.0 fl (80-100); Nucleated Red Blood Cells Absolute Auto 0.000 K/mm3 (0.0-0.012); Nucleated Red Blood Cells Perc 0.0 % (0.0-0.2); Platelet Count Result 267 k/mm3 (150-375); Red Blood Count 3.00 M/mm3 (4.2-5.4); White Blood Count 13.7 K/mm3 (4.5-10.0)
[2025-07-01 09:25] LABS: Anion Gap 7 mmol/L (4-12); Blood Urea Nitrogen 26 mg/dL (7-17); Calcium 9.2 mg/dL (8.4-10.2); Carbon Dioxide 24 mmol/L (22-30); Chloride 102 mmol/L (98-107); Estimated CRCL calculation 27 ml/min; Estimated Glomerular Filt Rate 51; Glucose 137 mg/dL (65-110); Potassium 4.3 mmol/L (3.4-5.0); Sodium 133 mmol/L (137-145)
--- NOTE | 2025-07-01 09:52 | P.PNIM_ITS ---
Progress Note: A&P Assessment and Plan (1) Paroxysmal A-fib: Code(s): I48.0 - Paroxysmal atrial fibrillation Status: Acute Plan Acute on chronic back pain: Code(s): M54.9 - Dorsalgia, unspecified; G89.29 - Other chronic pain Status: Acute Assessment and Plan: - initial injury 2 weeks ago while heavy lifting, seen in ER here 06/08, CT L- spine at that time showed moderate to advanced degenerative changes and a moderate chronic L1 compression fracture - admit XR lumbar spine with 25 degree dextro scoliosis with severe spondylosis - no red flag neurologic symptoms - suspect symptoms related to sciatica, less likely from chronic compression fracture - MRI: 25 degrees lumbar dextroscoliosis with severe spondylosis. 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 We discussed that surgery is sometimes an option for these types of symptoms but that surgery is a last-resort option for those who have failed treatments like physical therapy, injections with pain management, and medication.decadron 4mg q 6 hours as inpatient and discharge on Medrol dosepak outpatient referral to Pain Management for consideration of a right L4-5 epidural steroid injection Low back pain improved significantly on steroid. No focal deficit or other a bnormal sensations Hyponatremia and CARISSA Code(s): E87.1 - Hypo-osmolality and hyponatremia Status: Acute Assessment and Plan: - sodium 129 on presentation -patient reports decreased p.o. intake in setting of nausea and pain. 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 circ is trending up, 133 today Paroxysmal A-fib: Code(s): I48.0 - Paroxysmal atrial fibrillation Status: Acute Assessment and Plan: - continue home Eliquis, diltiazem (4) Hyperlipidemia: Code(s): E78.5 - Hyperlipidemia, unspecified Status: Acute Essential hypertension: Code(s): I10 - Essential (primary) hypertension Status: Acute Assessment and Plan: - continue home Irbesartan (7) Chronic anemia: Code(s): D64.9 - Anemia, unspecified Status: Acute Assessment and Plan: - Hgb 10.5, stable (8) Nausea: Code(s): R11.0 - Nausea Status: Acute Assessment and Plan: - suspect due to pain and narcotics - continue PRN Zofran - bowel regimen Patient will benefit from rehab in long term Consult inpatient care manager rn for placement, patient may be discharged to rehab tomorrow Subjective Date/time seen: 07/01/25 09:52 Interval history: I saw exam patient Patient feels better today, low back pain improved significantly. Patient is able to ambulate pain is tolerable Patient denies focal weakness, abnormal sensation, urinary fecal incontinence Exam Narrative: GENERAL: Pleasant, in no acute distress. Well-nourished. - EYES: EOMI. Anicteric. - HENT: Moist mucous membranes. - LUNGS: Clear to auscultation bilateral ly, no wheezing, rhonchi, or rales. - CARDIOVASCULAR: Regular rate and rhyth m. No murmur. No JVD. - ABDOMEN: Soft, non-tender and non-dist ended. No palpable masses. - EXTREMITIES: No edema. Peripheral puls es 2+. Non-tender. - NEUROLOGIC: No focal neurological defi cits. CN II-XII grossly intact. Lower back tenderness - PSYCHIATRIC: Awake, Alert and oriented x 3. Appropriate mood and affect. - SKIN: No rashes or lesions. Warm. - LYMPH: No cervical lymphadenopathy. Objective Data Vital Signs Vital Signs: Vital Signs - 24 hr 06/30/25 14:00 06/30/25 20:00 06/30/25 22:48 Temperature 97.8 F 98.4 F Pulse Rate 77 77 Respiratory Rate 14 16 Blood Pressure 154/69 H 132/71 Pulse Oximetry 100 96 Oxygen Delivery Room Air 07/01/25 07:04 Temperature 98.6 F Pulse Rate 97 Respiratory Rate 16 Blood Pressure 157/78 H Pulse Oximetry 98 Oxygen Delivery Intake/Output Intake/Output: Intake & Output 06/28/25 06/29/25 06/30/25 07/01/25 23:59 23:59 23:59 23:59 Intake Total 2200 4600 2210 730 Balance 2200 4600 2210 730 Meds/Results Medications: Active Medications Generic Name Dose Route Start Last Admin Trade Name Freq PRN Reason Stop Dose Admin Acetaminophen 500 mg 06/27/25 10:00 07/01/25 04:00 Acetaminophen 500 Mg Tablet PO Not Given Q6H DIANE Hydrocodone Bitart/Acetaminophen 1 tab 06/28/25 18:35 06/30/25 21:23 Hydrocodone/Acetaminophen (*Crx) 5-325 Mg Tablet PO 1 tab Q4H PRN Administration Pain Rated 4-6 Apixaban 2.5 mg 06/26/25 17:50 06/30/25 21:22 Apixaban 2.5 Mg Tablet PO 2.5 mg Q12HR DIANE Administration Atorvastatin Calcium 20 mg 06/28/25 09:00 06/30/25 09:22 Atorvastatin 20 Mg Tablet PO 20 mg DAILY DIANE Administration Cyclobenzaprine HCl 5 mg 06/29/25 10:35 06/30/25 21:22 Cyclobenzaprine Hcl 5 Mg Tablet PO 5 mg Q12HR DIANE Administration Dexamethasone 4 mg 06/28/25 15:20 07/01/25 05:20 Dexamethasone 4 Mg Tablet PO 4 mg Q6HR DIANE Administration Diltiazem HCl 120 mg 06/27/25 09:50 06/30/25 09:20 Diltiazem Hcl Cd 120 Mg Cap.24hr PO 120 mg DAILY DIANE Administration Gabapentin 100 mg 06/28/25 09:00 06/30/25 09:22 Gabapentin 100 Mg Capsule PO 100 mg DAILY DIANE Administration Irbesartan 150 mg 06/27/25 09:50 06/30/25 09:22 Irbesartan 150 Mg Tablet PO 150 mg DAILY DIANE Administration Lidocaine 1 patch 06/27/25 14:00 06/30/25 09:23 Lidocaine 5% Patch TRANSDERM 1 patch DAILY DIANE Administration Ondansetron HCl 4 mg 06/28/25 08:08 06/28/25 08:35 Ondansetron Hcl Odt 4 Mg Tablet PO 4 mg Q6H PRN Administration Nausea And Vomiting Pantoprazole Sodium 40 mg 06/27/25 10:10 06/30/25 21:22 Pantoprazole 40 Mg Tablet PO 40 mg Q12HR DIANE Administration Polyethylene Glycol 17 gm 06/27/25 14:00 06/30/25 09:24 Polyethylene Glycol 3350 17 Gm Powd.Pack PO 17 gm QAM DIANE Administration Sodium Chloride 2,000 mg 06/30/25 17:00 06/30/25 17:00 Sodium Chloride 500 Mg Tablet PO 2,000 mg BID DIANE Administration Zolpidem Tartrate 2.5 mg 06/30/25 17:06 06/30/25 21:23 Zolpidem Tartrate (*Crx) 2.5 Mg Tablet PO 2.5 mg HS PRN Administration Insomnia Radiology Results: ITS Impressions Lumbar Spine X-Ray 06/26/25 15:26 IMPRESSION: 1. 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 Lumbar Spine MRI 06/27/25 14:18 IMPRESSION: 1. 25 degrees lumbar dextroscoliosis with severe spondylosis. Labs Labs: Laboratory Results - last 24 hr 06/30/25 07/01/25 09:56 08:42 WBC 13.4 H 13.7 H RBC 2.86 L 3.00 L Hgb 9.8 L 10.2 L Hct 29.5 L 30.0 L MCV 103.1 H 100.0 MCH 34.3 H 34.0 MCHC 33.2 34.0 RDW 13.7 13.5 Plt Count 220 267 MPV 9.6 9.9 Immature Gran % (Auto) 1.6 H 1.3 H Neut % (Auto) 89.8 H 90.4 H Lymph % (Auto) 4.7 L 4.7 L [place] % (Auto) 3.8 3.5 Eos % (Auto) 0.0 0.0 Baso % (Auto) 0.1 L 0.1 L Lymph # (Auto) 0.63 L 0.65 L [place] # (Auto) 0.5 0.5 Eos # (Auto) 0.0 0.0 Baso # (Auto) 0.0 0.0 Abs Immat Gran (auto) 0.22 H 0.18 H Absolute Neuts (auto) 12.0 H 12.4 H Absolute Nucleated RBC 0.000 0.000 Nucleated RBC % 0.0 0.0 Sodium 126 L 133 L Potassium 4.3 4.3 Chloride 99 102 Carbon Dioxide 20 L 24 Anion Gap 7 7 BUN 22 H 26 H Creatinine 1.00 1.03 H Estim Creat Clear Calc 28 27 Estimated GFR 52 L 51 L Glucose 175 H 137 H Calcium 8.4 9.2
[2025-07-01] MEDS: PANTOPRAZOLE 40 MG TABLET PO ×2 (09:58→20:26)
[2025-07-01] MEDS: GABAPENTIN 100 MG CAPSULE PO (09:58)
[2025-07-01] MEDS: IRBESARTAN 150 MG TABLET PO (09:59)
[2025-07-01] MEDS: APIXABAN 2.5 MG TABLET PO ×2 (09:59→20:26)
[2025-07-01] MEDS: SODIUM CHLORIDE 500 MG TABLET 2000 MG PO ×2 (09:59→17:31)
[2025-07-01] MEDS: dilTIAZem HCL CD 120 MG CAP.24HR PO (09:59)
[2025-07-01] MEDS: ATORVASTATIN 20 MG TABLET PO (09:59)
[2025-07-01] MEDS: CYCLOBENZAPRINE HCL 5 MG TABLET PO ×2 (09:59→20:26)
[2025-07-01] MEDS: HYDROcodone/acetaminophen (*CRX) 5-325 MG TABLET 1 TAB PO ×2 (13:45→23:44)
[2025-07-01 13:46] VITALS: BP 156/90; PULSE 65; RESP 16; TEMP 36.8; O2SAT 98
[2025-07-01] MEDS: ZOLPIDEM TARTRATE (*CRX) 2.5 MG TABLET PO (20:27)
[2025-07-01 20:52] VITALS: BP 160/79; PULSE 85; RESP 16; TEMP 36.5; O2SAT 100
[2025-07-02 05:33] LABS: Hematocrit 28.8 % (37.0-47.0); Hemoglobin 9.7 g/dL (12.0-15.0); Immature Granulocyte Percent A 1.7 % (0-0.5); Lymphocytes Absolute Auto 0.90 K/mm3 (0.9-3.2); Mean Corpuscular HGB Conc 33.7 g/dl (32-36); Mean Corpuscular Hemoglobin 34.0 pg (26-34); Mean Corpuscular Volume 101.1 fl (80-100); Nucleated Red Blood Cells Absolute Auto 0.000 K/mm3 (0.0-0.012); Nucleated Red Blood Cells Perc 0.0 % (0.0-0.2); Platelet Count Result 266 k/mm3 (150-375); Red Blood Count 2.85 M/mm3 (4.2-5.4); White Blood Count 13.0 K/mm3 (4.5-10.0)
[2025-07-02 05:52] LABS: Anion Gap 4 mmol/L (4-12); Blood Urea Nitrogen 30 mg/dL (7-17); Calcium 8.7 mg/dL (8.4-10.2); Carbon Dioxide 25 mmol/L (22-30); Chloride 100 mmol/L (98-107); Estimated CRCL calculation 27 ml/min; Estimated Glomerular Filt Rate 51; Glucose 122 mg/dL (65-110); Potassium 4.4 mmol/L (3.4-5.0); Sodium 129 mmol/L (137-145)
[2025-07-02 06:20] VITALS: BP 170/90; PULSE 92; RESP 16; TEMP 36.6; O2SAT 98
[2025-07-02] MEDS: APIXABAN 2.5 MG TABLET PO (08:20)
[2025-07-02] MEDS: GABAPENTIN 100 MG CAPSULE PO (08:20)
[2025-07-02] MEDS: PANTOPRAZOLE 40 MG TABLET PO (08:20)
[2025-07-02] MEDS: SODIUM CHLORIDE 500 MG TABLET 2000 MG PO (08:20)
[2025-07-02] MEDS: dilTIAZem HCL CD 120 MG CAP.24HR PO (08:20)
[2025-07-02] MEDS: IRBESARTAN 150 MG TABLET PO (08:20)
[2025-07-02] MEDS: HYDROcodone/acetaminophen (*CRX) 5-325 MG TABLET 1 TAB PO ×2 (08:20→12:48)
[2025-07-02] MEDS: CYCLOBENZAPRINE HCL 5 MG TABLET PO (08:20)
[2025-07-02] MEDS: ATORVASTATIN 20 MG TABLET PO (08:20)
[2025-07-02] MEDS: ACETAMINOPHEN 500 MG TABLET PO (10:02)
[2025-07-02] MEDS: SENNOSIDES 8.6 MG TABLET PO (10:02)
--- NOTE | 2025-07-02 12:22 | PM.DS ---
DS: Admitting Diagnosis Discharge Date 07/02/2025 Admitting Diagnosis Back pain DS: Discharge Diagnosis Discharge Diagnosis (1) Lumbar radiculopathy: Code(s): M54.16 - Radiculopathy, lumbar region Status: Acute Plan 89-year-old female with chronic lower back pain presents on 06/26 with intractable right leg pain for 2 weeks. 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 Neurosurgery consulted. Advise referral to pain management outpatient for right L4-5 epidural steroid injection. Will follow with Neurosurgery as well as needed. Patient received Decadron 4 mg q.6 hours. She had improved pain. PT OT ongoing. Discharge to [facility] for rehab on Medrol Dosepak. Patient had hyponatremia. Started on sodium chloride tablets with improvement. The patient was DNR during the admission. DS: Summary Hospital Course Hospital Course: 89-year-old female with chronic lower back pain presents on 06/26 with intractable right leg pain for 2 weeks. 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 Neurosurgery consulted. Advise referral to pain management outpatient for right L4-5 epidural steroid injection. Will follow with Neurosurgery as well as needed. Patient received Decadron 4 mg q.6 hours. She had improved pain. PT OT ongoing. Discharge to [facility] for rehab on Medrol Dosepak. Patient had hyponatremia. Started on sodium chloride tablets with improvement. The patient was DNR during the admission. Time Spent with Patient Time attestation: Total time spent providing and/or coordinating discharge services: Exam Const: General: comfortable and no acute distress Other: A&O x3 HENMT: Mouth: Yes moist mucous membranes Eyes: Pupils: Equal, round and reactive pupils present Neck: Neck: supple Resp: Effort & Inspection: normal respiratory effort Auscultation: clear to auscultation bilaterally Cardio: Rate: regular rate Rhythm: regular rhythm GI: GI Palp: Yes Soft to palpation Neuro: Motor exam (neuro): 5/5 motor strength present throughout Extrem: General: no edema DS: Data Data Completed and Pending Labs on day of discharge: Labs from last 24 hours 07/02/25 05:00 WBC 13.0 H RBC 2.85 L Hgb 9.7 L Hct 28.8 L MCV 101.1 H MCH 34.0 MCHC 33.7 RDW 13.4 Plt Count 266 MPV 9.9 Immature Gran % (Auto) 1.7 H Neut % (Auto) 87.1 H Lymph % (Auto) 6.9 L Mingo % (Auto) 4.1 Eos % (Auto) 0.0 Baso % (Auto) 0.2 Lymph # (Auto) 0.90 Mingo # (Auto) 0.5 Eos # (Auto) 0.0 Baso # (Auto) 0.0 Abs Immat Gran (auto) 0.22 H Absolute Neuts (auto) 11.3 H Absolute Nucleated RBC 0.000 Nucleated RBC % 0.0 Sodium 129 L Potassium 4.4 Chloride 100 Carbon Dioxide 25 Anion Gap 4 BUN 30 H Creatinine 1.02 H Estim Creat Clear Calc 27 Estimated GFR 51 L Glucose 122 H Calcium 8.7 Discharge Plan Discharge Attending physician on discharge: Chayo Aguilar Consulting providers: Delisa Santana; Shyanne Humphries Discharging Clinician: Chayo Aguilar Patient Disposition: SNF Activity: march shower Diet: as tolerated Patient Instructions: Apixaban (By mouth) Patient Language: Sierra Leonean Stand Alone Forms: General Discharge Information Follow-up/Referrals: [facility] [Outside] (referral for consideration of L4-5 epidural steroid injection as suggested by neurosurgery for intractable leg pain. foraminal stenosis at L4-5) Alonzo Cornejo MD [Primary Care Provider] - Shyanne Humphries MD [Physician] - (being arranged by office. if pain and mobility much better no need to keep appointment) Discharge Medications: New polyethylene glycol 3350 [Miralax] 17 gram Powder In Packet 17 g PO QAM Qty: 0 0RF acetaminophen 500 mg Tablet 500 mg PO Q6H Qty: 0 0RF sodium chloride 1,000 mg tablet,soluble 2,000 mg PO BID Qty: 0 0RF lidocaine [Lidoderm] 5 % Adhesive Patch,Medicated 1 patch transdermal DAILY Qty: 0 0RF sennosides [Senokot] 8.6 mg tablet 8.6 mg PO BID PRN (Reason: constipation) Qty: 60 0RF methylprednisolone [Medrol (Bart)] 4 mg tablets,dose pack See Rx Instructions .ROUTE .COMPLEX Qty: 21 0RF Rx Instructions: for 6 days hydrocodone-acetaminophen 5-325 mg tablet 1 tablet PO Q4H PRN (Reason: pain) Qty: 7 0RF Continued atorvastatin 20 mg tablet 20 mg PO DAILY Qty: 30 2RF gabapentin 100 mg capsule 100 mg PO BID PRN (Reason: nerve pain) Qty: 60 0RF diltiazem HCl [Tiadylt ER] 120 mg capsule,extended release 24hr See Rx Instructions .ROUTE .COMPLEX Qty: 90 2RF Dose Instruction: 120 MG ORALLY DAILY Rx Instructions: 120 MG ORALLY DAILY omeprazole 40 mg capsule,delayed release(DR/EC) 40 mg PO DAILY Qty: 90 2RF irbesartan 150 mg tablet See Rx Instructions .ROUTE .COMPLEX Qty: 90 4RF Dose Instruction: TAKE 1 TABLET BY MOUTH EVERY DAY Rx Instructions: TAKE 1 TABLET BY MOUTH EVERY DAY Eliquis 2.5 mg tablet 2.5 mg PO BID Qty: 60 5RF Discontinued tramadol 50 mg tablet 50 mg PO BID PRN (Reason: pain) Qty: 20 0RF Date of admission: 06/27/25 16:59 Primary Care Provider: Alonzo Cornejo Admitting Provider: Jian Bennett Attending physician on admission: Jian Bennett Condition: Stable Hospitalist MIPS Heart Failure (Exclusion) Patient has history of Heart Transplant or Left Ventricular Assistive Device?: No IF YES, STOP HERE Heart Failure (Qualifier) Patient has current or prior documentation of LVEF less than or equal to 40%, or mod/servere depressed LVSF?: No IF NO, STOP HERE
== END 2025-07-02 14:00 | DRG 552 ==
LOC: ANHED 17:44 → ANH3MEDSUR 19:24 → ANH2MED 19:44
PROVIDERS: Hospitalist; Physician Assistant; Registered Nurse; Admitting Provider Internal Medicine; Emergency Provider Family Medicine; PCP Family Medicine; Visit Provider General Practice
DX: M48.061 Spinal stenosis, lumbar region without neurogenic claudication (principal); I13.0 Hypertensive heart and chronic kidney disease with heart failure and stage 1 through stage 4 chronic kidney disease, or unspecified chronic kidney disease; I50.32 Chronic diastolic (congestive) heart failure; E87.1 Hypo-osmolality and hyponatremia; M54.16 Radiculopathy, lumbar region; D63.1 Anemia in chronic kidney disease; E78.5 Hyperlipidemia, unspecified; G89.29 Other chronic pain; I48.0 Paroxysmal atrial fibrillation; M48.56XD Collapsed vertebra, not elsewhere classified, lumbar region, subsequent encounter for fracture with routine healing; N18.30 Chronic kidney disease, stage 3 unspecified; Z66 Do not resuscitate
CPT/HCPCS: 36415; 72100; 72148; 80048; 80053; 81001; 85025; 85027; 86140; 87086; 96361; 96374; 96375; 97110; 97116; 97161; 97166; 97530; 97535; 99285; A9270; G0378; J1100; J2405; J7030; J7120; J8540

== ENCOUNTER 2025-08-01 11:04 | Day surgery (SDC) | payer MEDICARE, SELFPAY ==
[2025-07-28 11:12] VITALS: BMI 22.1
[2025-08-01 11:34] VITALS: BP 149/83; PULSE 94; RESP 16; TEMP 37.6; O2SAT 95
--- OUTSIDE RECORDS SUMMARY | 2025-08-01 11:43 | XMS_ITS | Clinical Summary ---
Author Organization [facility] [address] Address [address] [place] [address] Care Team Providers Care Automotive Electrician Helper Name Role Phone Alonzo Cornejo MD Primary Care Provider Allergies No known active allergies Medications propranoloL (INDERAL) 80 mg tablet Take 1 tablet (80 mg total) by mouth every 12 (twelve) hours 1 Active omeprazole (PriLOSEC) 40 mg capsuleIndication s:Stress Ulcer Prophylaxis Take 1 capsule (40 mg total) by mouth certified dialysis technician before breakfast 1 Active Tiadylt ER 120 mg 24 hr capsule Take 1 capsule (120 mg total) by mouth certified dialysis technician before breakfast 1 Active acetaminophen (TYLENOL) 500 [...] hour patch free period). 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 [...] 05/17/2022 Assessment & Plan (01/04/2024 2:57 PM ORACLE SQL DEVELOPER): Cont statin Assessment & Plan (05/17/2022 8:58 AM CDT): -continue statin GERD (gastroesophageal reflux disease) 2 Assessment & Plan (05/17/2022 8:58 AM CDT): -cont PPI (HFpEF) heart failure with preserved ejection fr action 03/28/2021 Assessment & Plan (01/05/2024 2:27 PM ORACLE SQL DEVELOPER): TTE with EF 64% and grade 1 diastolic dysfunction. Appears euvolemic. Not in exacerbation -Not on diuretics at home -Strict I&Os, daily weights Loneliness 03/28/2021 Valvular heart disease 02/13/2021 Paroxysmal atrial fibrillation 01/29/2021 Chronic anticoagulation 01/29/2021 Essential hypertension 01/29/2021 Assessment & Plan (01/04/2024 2:55 PM ORACLE SQL DEVELOPER): Cont irbesartan and propranolol Localized swelling of both lower legs 01/29/2021 JOHNSON (dyspnea on exertion) 01/29/2021 Elevated LFTs 01/29/2021 Elevated TSH 01/29/2021 Anemia, unspecified 01/29/2021 Assessment & Plan (01/05/2024 2:27 PM ORACLE SQL DEVELOPER): Baseline Hgb 11s, likely AOCD; no signs of bleeding -Small drop in post procedure Hgb, exam reassuring. No hematoma Excessive daytime sleepiness 01/29/2021 CKD (chronic kidney disease) 01/29/2021 Assessment & Plan (01/05/2024 2:30 PM ORACLE SQL DEVELOPER): Cr baseline 1-1.1. Stable Resolved Problems Problem Noted Date Diagnosed Date Resolved Date Atrial fibrillation 05/16/2022 09/15/20 23 Persistent atrial fibrillation 04/08/2022 06/11/2022 Assessment & Plan (05/17/2022 8:58 AM CDT): -s/p afib ablation yesterday -patient currently in NSR / sinus arrhythmia -cont Eliquis, dilt, propranolol -f/u EP Encounters Date Type Department Care Team Description 07/28/2025 Telephone [facility] Card[facility] [address] [place] [phone] Natanael Concepcion MD 07/24/2025 Telephone [facility] [address] [place] [address] Natanael Concepcion MD 06/19/2025 2:36 PM CDT - 06/19/2025 8:45 PM CDT Emergency [facility] Emergency Department [address] [place] [address] Alvino Acosta, MD Lumbar back pain (Primary Dx); Leg pain, diffuse, right Discharge Disposition: Discharge to home or self care 05/22/2025 11:00 AM CDT Office Visit [facility] [address] [place] [phone] Natanael Concepcion MD Paroxysmal atrial fibrillation (HCC) (Primary Dx); Valvular heart disease 05/18/2025 11:30 AM CDT Office Visit [facility] [address] [address] [facility] [address] [place] [address] [place] [phone] Gilson Velazquez MD S/P radiofrequency ablation operation for arrhythmia (Primary Dx); Paroxysmal atrial fibrillation (HCC); Atypical atrial flutter (HCC); 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 Gender Identity Not on file Sexual Orientation [...] history exists Medical Devices Implanted Type Area Graduate Recruiter Device Identifier Shelf Expiration Date Model / Serial / Lot Vascade Mvp 6-12fr Venous Closure [id number] - [id number] Implanted:Qty : 1 on 05/16/2022 by Gilson Velazquez MD at [facility] Collagen Left: Groin [employer] 11/29/2025 800-612C- 10U / / [id number] Vascade Mvp 6-12fr Venous Closure [id number] - [id number] Implanted:Qty : 1 on 05/16/2022 by Gilson Velazquez MD at [facility] Collagen Right: Groin [employer] 11/29/2025 800-612C- 10U / / [id number] Vascade Mvp 6-12fr Venous Closure [id number] - [id number] Implanted:Qty : 1 on 05/16/2022 by Gilson Velazquez MD at [facility] Collagen Right: Groin [employer] 11/29/2025 800-612C- 10U / / [id number] [employer] Vascade Mvp 6-12fr Venous Closure [id number] - [id number] Implanted:Qty : 1 on 01/04/2024 by Gilson Velazquez MD at [facility] Other - see comments [employer] 09/21/2025 800-612C- 10U / / [id number] 30C Description:Vascade closure device [employer] Vascade Mvp 6-12fr Venous Closure [id number] - [id number] Implanted:Qty : 1 on 01/04/2024 by Gilson Velazquez MD at [facility] Other - see comments [employer] 08/18/2025 800-612C- 10U / / [id number] 18C Description:Vascade closure device [employer] Vascade Mvp 6-12fr Venous Closure [id number] - [id number] Implanted:Qty : 1 on 01/04/2024 by Gilson Velazquez MD at [facility] Other - see comments [employer] 09/21/2025 800-612C- 10U / / [id number] 30C Description:Vascade closure device Procedures Procedure Name [...] Meghan Trotter MD us Yinka Florence MD PhD IMG CT PROCEDURES Margarita l Result * CT Lumbar Spine WO Contrast (06/19/2025 [...] No high-grade spinal canal stenosis. Procedure Note Cody Engel, Vera Galindo MD - 06/19/2025 EXAMINATION: CT of the [...] Vera Engel M.D. us Yinka Florence MD PhD IMG CT PROCEDURES Margarita l Result * ECG 12 lead (05/18/2025 11:39 AM CDT) us Gilson Velazquez MD ECG ORDERABLES Edited Result - Final from Last 3 Months Insurance [facility] ADVANTRA [facility] ADVANTAGE CHOICE PPO [facility] ADVANTAGE CHOICE PPO Advance Directives For more information, please contact: [phone] * Full Code (Latest Code Status on File) Date Activated Date Inactivated Comments 01/04/2024 2:52 PM 01/05/2024 3:30 PM Care Teams Automotive Electrician Helper Relationship Specialty Start Date End Date Alonzo Cornejo MD [address] [facility] [address] [place] [address] PCP - General 05/23/13
--- OUTSIDE RECORDS SUMMARY | 2025-08-01 11:43 | XMS_ITS | Encounter Summary ---
Author Organization [facility] Address [address] [place] [address] Care Team Providers Care Auditor Tax Name Role Phone Alonzo Cornejo MD Primary Care Provider Encounter Details Date Type Department Care Team (Late st Contact Info) Description 07/28/[address] 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 * Telephone Encounter - Izzy Gary - 07/28/2025 1:09 PM CDT Mony with [facility] states the [phone] is giving her error messages and not going through. She re faxed it to [phone]. I seen it come in and it is now in the RN inbox under pre op clearance. Mony requesting this be addressed today. Contact: Opt 6 * Telephone Encounter - Carmen Lorenzo RN - 07/28/2025 12:35 PM CDT LM on VM for mony requesting she resend to our nurse fax at [phone] as we do not have the clearance. * Telephone Encounter - Izzy Gary - 07/28/2025 10:20 AM CDT Mony with [facility] states she faxed a cardiac clearance request on 07/26 to [phone]. Pt is scheduled for her procedure on 08/01. Requesting call with an update on cardiac clearance request. Contact: documented in this encounter Plan of Treatment Not on file documented as of this encounter Visit Diagnoses Not on filedocumented in this encounter Care Teams Auditor Tax Relationship Specialty Start Date End Date Alonzo Cornejo MD [address] [address] PCP - General 05/23/13 documented as of this encounter
--- OUTSIDE RECORDS SUMMARY | 2025-08-01 11:43 | XMS_ITS | Clinical Summary ---
Author Organization [facility] Address [address] [facility] [place] [address] Care Team Providers Care Release Specialist Name Role Phone Alonzo Cornejo MD Primary Care Provider [phone] Source Comments [facility],non-owned Affiliates and Associated Physician Practices is amultiple site organization consisting of ambulatory clinics and hospital sitesin [place], [place], [place] and [place]. This disclosure is being madepursuant to the Care Everywhere program and may not contain all information available regarding this patient. Last updated 18.[facility] Social History Tobacco Use Types Packs/Day Years [...] topic Insurance MEDICARE MEDICARE MEDICARE Care Teams Release Specialist Relationship Specialty Start Date End Date Alonzo Cornejo MD [address] [place] [address] PCP - General 06/12/21
--- OUTSIDE RECORDS SUMMARY | 2025-08-01 11:43 | XMS_ITS | Clinical Summary ---
Author Organization [facility] Address [address] [place] [address] Care Team Providers Care Casing Blower Name Role Phone Unavailable Primary Care Provider [...] 5 season) 2024 02/01/2021, 01/01/2021 PHQ-2 (Physician [place]) 11/30/2024 Meningococcal B Vaccine Aged Out No l onger eligible based on patient's age to complete this topic Meningococcal Vaccine Aged Out No lisseth shana eligible based on patient's age to complete this topic RSV Immunizations Under 20 Months Aged Out No longer eligible b ased on patient's age to complete this topic Insurance [employer]
--- OUTSIDE RECORDS SUMMARY | 2025-08-01 11:43 | XMS_ITS | Encounter Summary ---
Author Organization [facility] Address [address] [place] [address] Care Team Providers Care Science Liaison Name Role Phone Alonzo Cornejo MD Primary Care Provider [phone] Encounter Details Date Type Department Care Team (Late st Contact Info) Description 06/12/2021 Lab Requisition [facility] DermPath Lab [address] [place] [phone] Alfa Bell MD [address] [place] [address] Social History Tobacco Use Types [...] AM CDT) Case Report Dermatopathology Report Case: [id number] Authorizing Provider: Alfa Bell MD Collected: 06/11/2021 12:00 AM Ordering Location: [facility] Lab Received: 06/12/2021 12:56 PM [...] specimen consists of a shave biopsy measuring 6z4t7oc. Jar 0. 1 1:20 PM CDT DERMATOPATHOLOGY [...] characteristic determined by the Dermatopathology Laboratory at [facility], directed by Dr. Meghan Esquivel. These tests need not be, and therefore are not, approved by the [place] Food and Drug Administration. The tests are used for clinical purposes. Billing Codes Specimen Charges Stain Charges 29661 1 1 1:20 PM CDT DERMATOPATHOLOGY LABORATORY Embedded Images 1 1:20 PM CDT DERMATOPATHOLOGY LABORATORY Pathology/Cytolog y TISSUE SPECIMEN FROM SKIN / Unknown 06/11/2021 06/12/2021 12:56 PM CDT Alfa Bell MD LAB - PATHOLOGY/CYTOLOGY ORD ERABLES Final Result DERMATOPATHOLOGY LABORATORY [facility] - Department of Dermatology [facility] [address] [place] [address], [address] [phone] documented in this encounter Visit Diagnoses Not on filedocumented in this encounter Care Teams Science Liaison Relationship Specialty Start Date End Date Alonzo Cornejo MD [address] [place] [address] PCP - General 06/12/21 documented as of this encounter
--- NOTE | 2025-08-01 12:31 | WPDHPUPDATE1 ---
History and Physical Update Update Date/Time: 08/01/25 12:31 History and Physical has been reviewed, including an updated exam of the patient. There are NO changes in the patient's condition. Risks, benefits, and alternatives have been discussed and questions answered. Patient agrees to proceed with procedure.
--- NOTE | 2025-08-01 12:31 | W.PM.PROC2 ---
Procedure Note - Detailed Date of Procedure 08/01/25 Pre-op Diagnosis Lumbar Radiculopathy Post-op Diagnosis Same Procedure Performed Right Lumbar Transforaminal Epidural Steroid Injection under Fluoroscopic Guidance and with Contrast Control at L3-4, L4-5. Surgeon Raz Bourgeois MD Anesthesia Local Description of Procedure INFORMED CONSENT: Risks, benefits and alternatives to the procedure were discussed in detail with the patient who expressed explicit understanding and consent to proceed. Patient was informed verbally and in written form regarding the risks associated with the procedure including the low risk of serious infection, bleeding/bruising, allergic reaction, nerve or organ injury, paralysis, procedural site pain or discomfort, worsening pain and/or mobility, failure to treat and/or disfigurement. The patient expressed explicit understanding and consent to proceed. All materials required for the procedure were available prior to procedure start. Site and side was marked prior to procedure and confirmed in the presence of the patient. PROCEDURE IN DETAIL: The patient was brought to the procedural suite and placed in the prone position. Patient was made comfortable with use of pillows under the head/chest, hips and ankles. Skin overlying the injection site was prepared broadly with ChloraPrep applicator and draped in a sterile manner. Aseptic technique was employed throughout. The endplates of the vertebral body at the site of interest were aligned in the AP view. Ipsilateral oblique angulation was utilized to better visualize the neuroforamen of interest. Local anesthesia was established by infiltration with approximately 5 mL of 0.5% PF lidocaine via a 1-1/2 inch 27-gauge needle. A 22-gauge 5.0 inch Dale (pencil point) spinal needle was advanced until the needle approached the 6 o'clock position on the pedicle just superior to the exiting nerve root. on the right at L4-5. Lateral view was utilized to confirm appropriate position of the needle tip within the superior and posterior portion of the respective foramen. In an AP view, 1 mL of Omnipaque 300 contrast medium was injected after negative aspiration for CSF, blood or other bodily fluid, showing appropriate neurogram without evidence of intravascular or intrathecal spread of contrast. Digital subtraction imaging was used with an additional 1ml of the same contrast medium to confirm absence of intravascular contrast spread. A 1mL solution containing 5 mg of dexamethasone was injected after negative repeat aspiration. Appropriate spread of the injectate was confirmed with washout of previously injected contrast. No parasthesias were elicited. Needle was removed completely intact without difficulty. The same exact procedure was repeated for all remaining levels on the ipsilateral side, right L3-4 neuroforamen, modified as necessary to accommodate for the new target location with identical findings and results and no evidence of complication. Images were saved and documented in the patient chart. Patient's skin was cleaned and sterile bandage applied. The patient tolerated the procedure well. The patient was transported to the recovery area in stable condition where they were observed for an appropriate amount of time prior to discharge, without evidence of complication. The patient was instructed to avoid excessive activity for the next 48 hours, including climbing and frequent use of stairs. Showers only for 48 hours. They were instructed not to drive or operate heavy machinery for 24 hours. They are to monitor for severe headaches, fevers, chills, night sweats, erythema/swelling at the site or any other signs of infection, bleeding/bruising, bowel or bladder changes as well as new pain, weakness or numbness in the upper or lower extremity. Should they notice these changes, they are instructed to call our office immediately or report directly to the nearest Emergency Department if no answer or if after posted office hours. COMPLICATIONS: None COMMENTS: None CONTRAST WASTED: 26 mL Omnipaque 300. STEROID WASTED: 0 mg of dexamethasone Complications No immediate complications Condition Stable Disposition Same day [facility] Surgery - Charge Forward: Surgery Billing
[2025-08-01 12:50] VITALS: BP 172/83; PULSE 122; RESP 19; O2SAT 97
[2025-08-01] MEDS: LIDOCAINE 1% PF INJ 5 ML VIAL INFILTRATE (12:50)
[2025-08-01] MEDS: LIDOCAINE 2% PF LOCAL INJ 5 ML VIAL INFILTRATE (12:55)
[2025-08-01 12:56] VITALS: BP 176/73; PULSE 106; RESP 23; O2SAT 97
[2025-08-01] MEDS: dexAMETHasone SOD PHOS INJ 10 MG/ML 1 ML VIAL IM (12:56)
[2025-08-01 13:02] VITALS: BP 138/82; PULSE 113; RESP 16; O2SAT 98
--- NOTE | 2025-08-01 13:06 | P.OP_ITS ---
Procedure Note - Detailed Date of Procedure 08/01/25 Pre-op Diagnosis Lumbar Radiculopathy, lumbar spinal stenosis Post-op Diagnosis Same Procedure Performed Midline Lumbar Interlaminar Epidural Steroid Injection at L4-5. Surgeon Raz Bourgeois MD Anesthesia Local Description of Procedure INFORMED CONSENT: Risks, benefits and alternatives to the procedure were discussed in detail with the patient who expressed explicit understanding and consent to proceed. Patient was informed verbally and in written form regarding the risks associated with the procedure including the low risk of serious infection, bleeding/bruising, allergic reaction, nerve or organ injury, paralysis, procedural site pain or discomfort, worsening pain and/or mobility, failure to treat and/or disfigurement. The patient expressed explicit understanding and consent to proceed. All materials required for the procedure were available prior to procedure start. Site and side were marked prior to procedure and confirmed in the presence of the patient. PROCEDURE IN DETAIL: The patient was brought to the procedural suite and placed in the sitting position with lumbar spine maximally flexed. Patient was made comfortable with use of pillows. Skin overlying the injection site was prepared broadly with ChloraPrep applicator and draped in a sterile manner. Aseptic technique was employed throughout. Spinous processes were identified at the midline and the L4-5 interspace identified by palpation at the level of the posterior iliac crest Local anesthesia was established by infiltration with approximately 5 mL of 2% lidocaine via a 1-1/2 inch 27-gauge needle. A [20]- gauge 4-inch Tuohy epidural needle was advanced intermittently until appropriate loss of resistance to air was identified via plastic loss of resistance syringe. Lateral view was used to confirm the appropriate positioning of the needle tip within the posterior epidural space. [In the in the AP direction. After negative aspiration for CSF, blood or other bodily fluid, a 4 mL solution containing 10 mg of dexamethasone in sterile PF Normal Saline was injected after negative repeat aspiration. No parasthesias were elicited. Needle was removed completely intact without difficulty. Images were saved and documented in the patient chart. Patient's skin was cleaned and sterile bandage applied. The patient tolerated the procedure well. The patient was transported to the recovery area in stable condition where they were observed for an appropriate amount of time prior to discharge, without evidence of complication. The patient was instructed to avoid excessive activity for the next 48 hours, including climbing and frequent use of stairs. Showers only for 48 hours. They were instructed not to drive or operate heavy machinery for 24 hours. They are to monitor for severe headaches, fevers, chills, night sweats, erythema/swelling at the site or any other signs of infection, bleeding/bruising, bowel or bladder changes as well as new pain, weakness or numbness in the upper or lower extremity. Should they notice these changes, they are instructed to call our office immediately or report directly to the nearest Emergency Department if no answer or if after posted office hours. COMPLICATIONS: [None] COMMENTS: [None] Complications No immediate complications Condition Stable Disposition Same day [facility] Billing Surgery - Charge Forward: Surgery Billing
== END 2025-08-01 13:28 | disposition home or self-care (01) ==
PROVIDERS: PCP Family Medicine; Visit Provider Anesthesiology Pain Medicine
PROC: (CPT 62322; principal; 2025-08-01 12:10)
DX: M47.26 Other spondylosis with radiculopathy, lumbar region (principal); M48.061 Spinal stenosis, lumbar region without neurogenic claudication
CPT/HCPCS: 62322; J1100

== ENCOUNTER 2025-09-19 12:10 | Outpatient (CLI) | payer MEDICARE, SELFPAY ==
--- NOTE | ~2025-09-19 | XR_ITS ---
XR shoulder RT min 2V 09/19/2025 12:31 INDICATION: Right shoulder pain PROCEDURE: 5 views right shoulder COMPARISON: 11/08/2007 FINDINGS: Fracture, dislocation or subluxation is not identified. There is mild polyarticular osteoarthritis. The soft tissues appear within normal limits. No foreign bodies are identified. IMPRESSION: 1: NO ACUTE BONE OR JOINT ABNORMALITY IDENTIFIED. Reviewed, dictated and finalized at location O.
== END 2025-09-19 12:11 | disposition home or self-care (01) ==
LOC: MICIMG 12:12
PROVIDERS: PCP Family Medicine; Visit Provider Physician Assistant
DX: M15.9 Polyosteoarthritis, unspecified (principal)
CPT/HCPCS: 73030

== ENCOUNTER 2025-09-26 09:15 | Day surgery (SDC) | payer MEDICARE, SELFPAY ==
[2025-09-20 10:02] VITALS: BMI 22.9
--- NOTE | ~2025-09-26 | XR_ITS ---
EXAMINATION: XR fluoroscopy no charge DATE: 09/26/2025 10:44 INDICATION: Right L3-L4 and L4-L5 transforaminal epidural steroid injections TECHNIQUE: 67 fluoroscopic images of the lumbar spine were obtained during pain management procedure performed by Dr. Bourgeois. Radiologist was not present for the imaging or procedure. The amount of fluoroscopy time used during this procedure was 0.9 minutes. The cumulative radiation dose was 14.84 mGy. COMPARISON: None. FINDINGS: Lumbar dextrocurvature with severe spondylosis. Needle tips to been advanced to the posterior margin of the right L3-L4 and L4-L5 neural foramina. Contrast injection demonstrates perineural spread at the neural foramina with no evident vascular or intrathecal contrast. IMPRESSION: 1. Fluoroscopy utilized during right L3-L4 and L4-5 transforaminal injections. See procedure note for further detail. Reviewed, dictated and finalized at location A.
[2025-09-26 09:46] VITALS: BP 170/85; PULSE 75; RESP 15; TEMP 37.6; O2SAT 99
--- NOTE | 2025-09-26 10:08 | WPDHPUPDATE1 ---
History and Physical Update Update Date/Time: 09/26/25 10:08 History and Physical has been reviewed, including an updated exam of the patient. There are NO changes in the patient's condition. Risks, benefits, and alternatives have been discussed and questions answered. Patient agrees to proceed with procedure.
--- NOTE | 2025-09-26 10:09 | W.PM.PROC2 ---
Procedure Note - Detailed Date of Procedure 09/26/25 Pre-op Diagnosis Lumbar Radiculopathy Post-op Diagnosis Same Procedure Performed Right Lumbar Transforaminal Epidural Steroid Injection under Fluoroscopic Guidance and with Contrast Control at L3-4, L4-5. Surgeon Raz Bourgeois MD Anesthesia Local Description of Procedure INFORMED CONSENT: Risks, benefits and alternatives to the procedure were discussed in detail with the patient who expressed explicit understanding and consent to proceed. Patient was informed verbally and in written form regarding the risks associated with the procedure including the low risk of serious infection, bleeding/bruising, allergic reaction, nerve or organ injury, paralysis, procedural site pain or discomfort, worsening pain and/or mobility, failure to treat and/or disfigurement. The patient expressed explicit understanding and consent to proceed. All materials required for the procedure were available prior to procedure start. Site and side was marked prior to procedure and confirmed in the presence of the patient. PROCEDURE IN DETAIL: The patient was brought to the procedural suite and placed in the prone position. Patient was made comfortable with use of pillows under the head/chest, hips and ankles. Skin overlying the injection site was prepared broadly with ChloraPrep applicator and draped in a sterile manner. Aseptic technique was employed throughout. The endplates of the vertebral body at the site of interest were aligned in the AP view. Ipsilateral oblique angulation was utilized to better visualize the neuroforamen of interest. Local anesthesia was established by infiltration with approximately 5 mL of 0.5% PF lidocaine via a 1-1/2 inch 27-gauge needle. A 22-gauge 5.0 inch Dale (pencil point) spinal needle was advanced until the needle approached the 6 o'clock position on the pedicle just superior to the exiting nerve root. on the right at L4-5. Lateral view was utilized to confirm appropriate position of the needle tip within the superior and posterior portion of the respective foramen. In an AP view, 1 mL of Omnipaque 300 contrast medium was injected after negative aspiration for CSF, blood or other bodily fluid, showing appropriate neurogram without evidence of intravascular or intrathecal spread of contrast. Digital subtraction imaging was used with an additional 1ml of the same contrast medium to confirm absence of intravascular contrast spread. A 1mL solution containing 5 mg of dexamethasone was injected after negative repeat aspiration. Appropriate spread of the injectate was confirmed with washout of previously injected contrast. No parasthesias were elicited. Needle was removed completely intact without difficulty. The same exact procedure was repeated for all remaining levels on the ipsilateral side, right L3-4 neuroforamen, modified as necessary to accommodate for the new target location with identical findings and results and no evidence of complication. Images were saved and documented in the patient chart. Patient's skin was cleaned and sterile bandage applied. The patient tolerated the procedure well. The patient was transported to the recovery area in stable condition where they were observed for an appropriate amount of time prior to discharge, without evidence of complication. The patient was instructed to avoid excessive activity for the next 48 hours, including climbing and frequent use of stairs. Showers only for 48 hours. They were instructed not to drive or operate heavy machinery for 24 hours. They are to monitor for severe headaches, fevers, chills, night sweats, erythema/swelling at the site or any other signs of infection, bleeding/bruising, bowel or bladder changes as well as new pain, weakness or numbness in the upper or lower extremity. Should they notice these changes, they are instructed to call our office immediately or report directly to the nearest Emergency Department if no answer or if after posted office hours. COMPLICATIONS: None COMMENTS: None CONTRAST WASTED: 26 mL Omnipaque 300. STEROID WASTED: 0 mg of dexamethasone. Complications No immediate complications Condition Stable Disposition Same day [facility] Billing Surgery - Charge Forward: Surgery Billing
--- OUTSIDE RECORDS SUMMARY | 2025-09-26 10:10 | XMS_ITS | Encounter Summary ---
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 She verbalizes understanding. * Telephone Encounter - Irene Pedraza NP - 09/21/2025 8:05 AM CDT Yes, she may hold Eliquis 3 days prior to the epidural. Thank you. * Telephone Encounter - Sherly Bullock RN - 09/19/2025 5:42 PM CDT Spoke with Maddison, she states that pt is scheduled for a spinal epidural on 09/26 and they are requesting a 3 day Eliquis hold prior to procedure. Will forward to CT. Please advise. * Telephone Encounter - Janette Lazcano - 09/19/2025 2:57 PM CDT Maddison states that the patient is scheduled for a cortisone shot on 09/26. She is asking about holding medications. Requesting a call back to disuss. Please advise. Thank you. Contact : [phone] documented in this encounter Plan of Treatment Not on file documented as of this encounter Visit Diagnoses Not on filedocumented in this encounter Care Teams Construction Driller Relationship Specialty Start Date End Date Alonzo Cornejo MD [address] [facility] [address] [place] [address] PCP - General 05/23/13 documented as of this encounter
--- OUTSIDE RECORDS SUMMARY | 2025-09-26 10:10 | XMS_ITS | Encounter Summary ---
Author Organization [facility] Address [address] [place] [address] Care Team Providers Care Rehabilitation Teacher Name Role Phone Alonzo Cornejo MD Primary Care Provider [phone] Encounter Details Date Type Department Care Team (Late st Contact Info) Description 06/12/2021 Lab Requisition [facility] [address] [facility] [place] [id number] Alfa Bell MD [address] [place] [address] Social History Tobacco Use Types [...] AM CDT) Case Report Dermatopathology Report Case: [id number] Authorizing Provider: Alfa Bell MD Collected: 06/11/2021 12:00 AM Ordering Location: [facility] Received: 06/12/2021 12:56 PM Pathologist: [...] specimen consists of a shave biopsy measuring [id number]. Jar 0. 1 1:20 PM CDT DERMATOPATHOLOGY [...] purposes. Billing Codes Specimen Charges Stain Charges 97136 1 1 1:20 PM CDT DERMATOPATHOLOGY LABORATORY Embedded Images 1 1:20 PM CDT DERMATOPATHOLOGY LABORATORY Pathology/Cytolog y TISSUE SPECIMEN FROM SKIN / Unknown 06/11/2021 06/12/2021 12:56 PM CDT Alfa Bell MD LAB - PATHOLOGY/CYTOLOGY ORD ERABLES Final Result DERMATOPATHOLOGY LABORATORY [facility] - Department of Dermatology [facility] Medicine [address] [place] [address], [address] [phone] documented in this encounter Visit Diagnoses Not on filedocumented in this encounter Care Teams Rehabilitation Teacher Relationship Specialty Start Date End Date Alonzo Cornejo MD [address] [place] [address] PCP - General 06/12/21 documented as of this encounter
--- OUTSIDE RECORDS SUMMARY | 2025-09-26 10:10 | XMS_ITS | Clinical Summary ---
Author Organization [facility] Address [address] [facility] [place] [address] Care Team Providers Care Cook Night Name Role Phone Alonzo Cornejo MD Primary Care Provider [phone] Source Comments [facility],non-owned Affiliates and Associated Physician Practices is amultiple site organization consisting of ambulatory clinics and hospital sitesin [place], [place], [place] and [place]. This disclosure is being madepursuant to the Care Everywhere program and may not contain all information available regarding this patient. Last updated 18.[facility] Social History Tobacco Use Types Packs/Day Years [...] yrs (1 - 1-dose 75+ series) 2012 DEPRESSION SCREENING 11/30/2024 COVID-19 VACCINE ( - 2023-2 5 season) 2025 INFLUENZA VACCINE (#1) 2025 HEPATITIS B VACCINE [...] topic Insurance MEDICARE MEDICARE MEDICARE Care Teams Cook Night Relationship Specialty Start Date End Date Alonzo Cornejo MD [address] [place] [address] PCP - General 06/12/21
--- OUTSIDE RECORDS SUMMARY | 2025-09-26 10:10 | XMS_ITS | Encounter Summary ---
Author Organization [facility] Address [address] [place] [address] Care Team Providers Care Concrete Batching Plant Operator Name Role Phone Alonzo Cornejo MD Primary Care Provider Encounter Details Date Type Department Care Team (Late st Contact Info) Description 09/26/2025 Telephone [facility] Cardiology [address] [facility] [address] 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 Pt has an epidural procedure this morning and prior to giving medications pts bp 113/66. She is concerned that if she gives pt her morning medications as scheduled her bp will be too low and will cause problems for todays procedure. She is going to hold pts propranolol dose this morning to prevent bp from going too low and then will recheck prior to her evening dose. Advised Maddison to call with any further questions or concerns. documented in this encounter Plan of Treatment Not on file documented as of this encounter Visit Diagnoses Not on filedocumented in this encounter Care Teams Concrete Batching Plant Operator Relationship Specialty Start Date End Date Alonzo Cornejo MD [address] [facility] [[email or web address] [address] [place] [address] PCP - General 05/23/13 documented as of this encounter
--- OUTSIDE RECORDS SUMMARY | 2025-09-26 10:10 | XMS_ITS | Clinical Summary ---
Author Organization [facility] [address] Address [address] [place] [address] Care Team Providers Care Monument Setter Helper Name Role Phone Alonzo Cornejo MD Primary Care Provider Allergies No known active allergies Medications propranoloL (INDERAL) 80 mg tablet Take 0.5 tablets (40 mg total) by mouth every 12 (twelve) hours 12/25/19 21 Active omeprazole (PriLOSEC) 40 mg capsuleIndicati ons:Stress Ulcer Prophylaxis Take 1 capsule (40 mg total) by mouth acoustic engineer before breakfast 12/25/19 21 Active Tiadylt ER 120 mg 24 hr capsule Take 1 capsule (120 mg total) by mouth acoustic engineer before breakfast 12/26/19 21 Active acetaminophen (TYLENOL) 500 mg tablet Take 1 tablet (500 mg total) by mouth every 6 (six) hours as needed for pain Active irbesartan (AVAPRO) 75 mg tablet Take 1 tablet (75 mg total) by mouth daily 07/24/20 24 Active apixaban (ELIQUIS) 2.5 mg tabletIndicatio ns:atrial fibrillation Take 1 tablet (2.5 mg total) by mouth 2 (two) times a day 180 tablet 3 10/07/20 24 Active atorvastatin (LIPITOR) 20 mg tablet TAKE 1 TABLET BY MOUTH EVERY DAY 90 tablet 1 04/20/20 25 Active HYDROcodone-martinez taminophen (NORCO) 5-325 mg per tabletIndicatio ns:Pain Take 1 tablet by mouth every 6 (six) hours as needed for pain for up to 5 doses 5 tablet 06/19/20 25 Active lidocaine (LIDODERM) 5 % Apply 1 patch topically daily for 12 hours Remove after 12 hours (need 12 hour patch free period). 15 patch 06/19/20 25 Active gabapentin (NEURONTIN) 100 mg capsule Take 1 capsule (100 mg total) by mouth 3 (three) times a day 08/29/20 25 Active hydrOXYzine (ATARAX) 50 mg tablet Take 1 tablet (50 mg total) by mouth every 8 (eight) hours as needed 07/10/20 25 Active melatonin tablet Take 1 tablet (3 mg total) by mouth nightly Active furosemide (LASIX) 20 mg tablet Take 1 tablet (20 mg total) by mouth daily 07/12/20 25 025 Discontinued(Th erapy completed) diltiaZEM (CARDIZEM) 120 mg tablet Take 1 tablet (120 mg total) by mouth 4 (four) times a day 025 Discontinued Active Problems Problem Noted Date Diagnosed Date Atypical atrial flutter 05/18/2025 nursing home current use of anticoagulant therapy 0 05/18/2025 Chronic fatigue 12/29/2023 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 [...] 05/17/2022 Assessment & Plan (01/04/2024 2:57 PM SOFTWARE SALES EXECUTIVE): Cont statin Assessment & Plan (05/17/2022 8:58 AM CDT): -continue statin GERD (gastroesophageal reflux disease) Assessment & Plan (05/17/2022 8:58 AM CDT): -cont PPI (HFpEF) heart failure with preserved ejection fr action 03/28/2021 Assessment & Plan (01/05/2024 2:27 PM SOFTWARE SALES EXECUTIVE): TTE with EF 64% and grade 1 diastolic dysfunction. Appears euvolemic. Not in exacerbation -Not on diuretics at home -Strict I&Os, daily weights Loneliness 03/28/2021 Valvular heart disease 02/13/2021 Paroxysmal atrial fibrillation 01/29/2021 Chronic anticoagulation 01/29/2021 Essential hypertension 01/29/2021 Assessment & Plan (01/04/2024 2:55 PM SOFTWARE SALES EXECUTIVE): Cont irbesartan and propranolol Localized swelling of both lower legs 01/29/2021 JOHNSON (dyspnea on exertion) 01/29/2021 Elevated LFTs 01/29/2021 Elevated TSH 01/29/2021 Anemia, unspecified 01/29/2021 Assessment & Plan (01/05/2024 2:27 PM SOFTWARE SALES EXECUTIVE): Baseline Hgb 11s, likely AOCD; no signs of bleeding -Small drop in post procedure Hgb, exam reassuring. No hematoma Excessive daytime sleepiness 01/29/2021 CKD (chronic kidney disease) 01/29/2021 Assessment & Plan (01/05/2024 2:30 PM SOFTWARE SALES EXECUTIVE): Cr baseline 1-1.1. Stable Resolved Problems Problem Noted Date Diagnosed Date Resolved Date Atrial fibrillation 05/16/2022 09/15/20 23 Persistent atrial fibrillation 04/08/2022 06/11/2022 Assessment & Plan (05/17/2022 8:58 AM CDT): -s/p afib ablation yesterday -patient currently in NSR / sinus arrhythmia -cont Eliquis, dilt, propranolol -f/u EP Encounters Date Type Department Care Team Description 09/26/2025 Telephone [facility] Cardiology [address] [place] [address] [address] [place] [phone] Irene Pedraza NP 09/19/2025 Telephone [place] [address] [place] [address] [phone] Natanael Concepcion MD 09/12/2025 Telephone [place] [address] [place] [address] [phone] Natanael Concepcion MD Hypotension 09/07/2025 1:30 PM CDT Office Visit [place] [address] [place] [address] [phone] Irene Pedraza NP Paroxysmal atrial fibrillation (HCC) (Primary Dx); S/P radiofrequency ablation operation for arrhythmia; Chronic anticoagulation; Hospital discharge follow-up 08/31/2025 Telephone [place] [address] [place] [phone] Natanael Concepcion MD Med Management; Hypotension 08/28/2025 Telephone [place] [address] [place] [address] [phone] Natanael Concepcion MD Med Management 07/28/2025 Telephone [place] [address] [place] [address] [phone] Natanael Concepcion MD 07/24/2025 Telephone [place] [address] [place] [address] [phone] Natanael Concepcion MD from Last 3 Months Immunizations Immunization Administration [...] on file 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 Gender Identity Not on file Sexual Orientation Not on file Obstetrics History Last Filed Vital Signs Vital Sign Reading Time Taken Comments Blood Pressure 104/68 09/07/2025 1:25 PM CDT Pulse 74 09/07/2025 1:25 PM CDT Temperature 36.7 C (98.1 F) 06/19/2025 11:51 AM CDT Respiratory Rate 18 06/19/2025 3:53 PM CDT Oxygen Saturation 98% 09/07/2025 1:25 PM CDT Inhaled Oxygen Concentration - - Weight 56.2 kg (123 lb 14.4 oz) 09/07/2025 1:25 PM CDT Height 157.5 cm (5' 2) 09/07/2025 1:25 PM CDT Body Mass Index 22.66 09/07/2025 1:25 PM CDT Plan of Treatment Health Maintenance Due Date Last Done Comments Depression Screening 1935 Osteoporosis Screening-Bone Density Scan 1935 DTaP/Tdap/Td Vaccine (1 - Tdap) 1948 Hepatitis B Screening 1955 Zoster Vaccine (1 of 2) 1987 Well Visit 65+ 2002 Pneumococcal vaccine 65+ (2 of 2 - PCV) 09/02/2008 09/02/2007, 12/29/2002 Fall Risk Assessment 01/05/2025 01/05/2024 Covid-19 Vaccine (4 - 2024-2 6 season) 2025 10/03/2021, 02/01/2021, 01/01/2021 Influenza Vaccine (#1) 2025 , 07/29/2020, 07/25/2019, Additional history exists Medical Devices Implanted Type Area Circuits Engineer Device Identifier Shelf Expiration Date Model / Serial / Lot Vascade Mvp 6-12fr Venous Closure [id number] - [id number] Implanted:Qty : 1 on 05/16/2022 by Gilson Velazquez MD at [facility] Collagen Left: Groin [employer] 11/29/2025 800-612C- 10U / / [id number] Vascade Mvp 6-12fr Venous Closure [id number] - [id number] Implanted:Qty : 1 on 05/16/2022 by Gilson Velazquez MD at [facility] Collagen Right: Groin [employer] 11/29/2025 800-612C- 10U / / [id number] Vascade Mvp 6-12fr Venous Closure [id number] - [id number] Implanted:Qty : 1 on 05/16/2022 by Gilson Velazquez MD at [facility] Collagen Right: Groin [employer] 11/29/2025 800-612C- 10U / / [id number] [employer] Vascade Mvp 6-12fr Venous Closure [id number] - [id number] Implanted:Qty : 1 on 01/04/2024 by Gilson Velazquez MD at [facility] Other - see comments [employer] 09/21/2025 800-612C- 10U / / [id number] 30C Description:Vascade closure device [employer] Vascade Mvp 6-12fr Venous Closure [id number] - [id number] Implanted:Qty : 1 on 01/04/2024 by Gilson Velazquez MD at [facility] Other - see comments [employer] 08/18/2025 800-612C- 10U / / [id number] 18C Description:Vascade closure device [employer] Vascade Mvp 6-12fr Venous Closure [id number] - [id number] Implanted:Qty : 1 on 01/04/2024 by Gilson Velazquez MD at [facility] Other - see comments [employer] 09/21/2025 800-612C- 10U / / [id number] 30C Description:Vascade closure device Insurance [facility] CHOICE O MEDICARE [facility] MEDICARE SUPPLEMENT Advance Directives For more information, please contact: [phone] * Full Code (Latest Code Status on File) Date Activated Date Inactivated Comments 01/04/2024 2:52 PM 01/05/2024 3:30 PM Care Teams Monument Setter Helper Relationship Specialty Start Date End Date Alonzo Cornejo MD [address] [place] [address] PCP - General 05/23/13
[2025-09-26 10:37] VITALS: BP 208/102; PULSE 86; RESP 14; O2SAT 96
[2025-09-26 10:41] VITALS: BP 204/93; PULSE 77; RESP 14; O2SAT 96
[2025-09-26] MEDS: LIDOCAINE 2% PF LOCAL INJ 5 ML VIAL (10:41)
[2025-09-26] MEDS: DEXAMETHASONE SODIUM PHOSP/PF 10 MG/ML 1 ML VIAL (10:41)
[2025-09-26 10:46] VITALS: BP 142/107; PULSE 77; RESP 20; O2SAT 100
== END 2025-09-26 11:00 | disposition home or self-care (01) ==
PROVIDERS: PCP Family Medicine; Visit Provider Anesthesiology Pain Medicine
PROC: (CPT 64483; principal; 2025-09-26 10:30)
DX: M47.26 Other spondylosis with radiculopathy, lumbar region (principal); M48.061 Spinal stenosis, lumbar region without neurogenic claudication
CPT/HCPCS: 64483; 64484; 99199